=== PATIENT | female | born 1990 | race Caucasian/White ===

== ENCOUNTER 2022-01-14 10:38 | Emergency (ER) | payer OTHER, BC, SELFPAY ==
[2022-01-14 10:57] VITALS: BP 108/86; PULSE 81; RESP 20; TEMP 36.8; O2SAT 96; BMI 41.0
--- NOTE | 2022-01-14 11:20 | ED.BACK ---
HPI - Back Pain/Injury General Chief Complaint: Back Injury/Pain Stated Complaint: severe back pain Time Seen by Provider: 01/14/22 11:04 History of Present Illness HPI Narrative: Hermelinda is a 31yo female patient who presents to the emergency department via POV with complaints of low back pain, severe in nature, that has improved at time of arrival. The patient reports 2-3 previous days of nausea, vomiting, and diarrhea. She states 1 day prior to presentation while walking in a store she developed severe low back pain. She denies previous similar symptoms. She states she took no medication and sought no evaluation 1 day prior to presentation. She states the morning of presentation, the pain was worse, and she took Tylenol and Gas-X prior to arrival. She reports her pain has now nearly resolved. She denies fever, chills, or sweats. She denies burning with urination, frequency, or hematuria. She denies dark tarry stool or blood in her stool. She has no history of injury or trauma. She denies numbness, tingling, or weakness. See nursing notes for additional details. Related Data Home Medications Medication Instructions Recorded Confirmed epinephrine 0.3 mg/0.3 mL 01/14/22 injection, auto-injector sertraline 25 mg tablet mg 01/14/22 Allergies Allergy/AdvReac Type Severity Reaction Status Date / Time adhesive tape Allergy Verified 01/14/22 10:56 venom-honey bee Allergy Verified 01/14/22 10:56 Review of Systems Const: Denies: fever, chills, fatigue or malaise Cardio: Denies: chest pain or shortness of breath with exertion Resp: Denies: shortness of breath or cough GI: Reports: nausea and diarrhea; Denies: abdominal pain, vomiting or constipation : Denies: painful urination, urinary frequency, urinary urgency or blood in urine Musculo: Reports: back pain; Denies: limited range of motion, muscle cramps or muscle weakness Integ/Breast: Denies: rash Neuro: Denies: headache, numbness in extremities, weakness in extremities or lack of coordination Endo: Denies: fatigue PFSH PFSH Social History Smoking Status: Never smoker Do you use any of these nicotine containing products: None Second hand tobacco smoke exposure: No How often do you have a drink containing alcohol: monthly or less How many standard drinks containing alcohol do you have on a typical day: 1 or 2 How often do you have six or more drinks on one occasion: Never AUDIT-C Alcohol total score: 1 Non-prescribed substance use: denies use service: No Exam Const: Vital Signs, click to edit/add: Vital Signs - 24 hr 01/14/22 10:57 01/14/22 11:30 01/14/22 13:39 Temperature 98.3 F 97.5 F L Pulse Rate [Pulse Oximeter] 81 55 L Respiratory Rate 20 18 18 Blood Pressure [Le ft Forearm] 108/86 114/79 113/81 Pulse Oximetry 96 96 98 Documenting provider has reviewed patient's vital signs: yes Common normals: no apparent distress, oriented x3, no limitations, healthy appearing, alert and well nourished General appearance: cooperative, comfortable, well kempt and well developed Nutritional appearance: overweight Orientation/consciousness: Yes awake, Yes oriented to person, Yes oriented to place and Yes oriented to time HENMT: Common normals: normocephalic and head/scalp atraumatic Head and scalp: normocephalic and atraumatic Neck & C-Spine: Common normals: full ROM and supple Chest: Common normals: inspection of chest normal Resp: Common normals: normal respiratory effort, no retractions, no use of accessory muscles and clear to auscultation bilaterally Effort & inspection: able to speak in complete sentences Auscultation: clear to auscultation bilaterally Cardio: Common normals: regular rate, regular rhythm, S1 normal heart sound and S2 normal heart sound Rate: regular rate Rhythm: regular rhythm Heart sounds: S1 normal and S2 normal GI: Common normals: Normal to inspection, nondistended, normoactive bowel sounds present, soft to palpation and non-tender Palpation: soft : Common normals: no CVA tenderness Bladder/kidney exam: no CVA tenderness Back & Pelvis: Common normals: no CVA tenderness, thoracic and lumbar spine normal to inspection and straight leg raise negative bilaterally Extremity: Common normals: normal to inspection, full ROM, no clubbing, cyanosis or edema and no pedal edema Neuro: Common normals: oriented x3, CN's II-XII intact bilaterally, moves all extremities, no focal motor deficits and no sensory deficits noted Sensorium/orientation: awake, alert, oriented to person, oriented to place and oriented to time Gait (neuro): normal gait Motor exam: strength 5/5 throughout, no pronator drift and no tremor noted Psych: Common normals: mental status grossly normal, thought process normal, cooperative, affect normal, speech normal and activity/motor behavior normal Appearance: well kempt Attitude: calm Activity/motor behavior: appropriate eye contact Speech: normal speech Thought process: normal thought process Thought content: normal thought content Insight: insight good Judgement: judgment good Skin: Common normals: no rashes or lesions noted General skin exam: no rashes or lesions noted Course Course Hospital Course: Hermelinda has arrived to the ED for complaints of back pain that has resolved prior to arrival. Discussed lab studies to evaluate possible etiologies of back pain. However, without trauma or injury, and less than 48hrs of pain, at this time, no imaging necessary. The patient is agreeable and labs were reviewed. She is given anticipatory guidance on conservative management of back pain and advised to return for new or worsening symptoms. Reevaluation(s) Reevaluation #1: Hermelinda remains pain free. She has had some continued nausea, and she is agreeable for treatment for her nausea. Time: 12:27 Reevaluation #2: Discussed additional lab results with patient. Mild hematuria noted, plan for CT to evaluate for stone as etiology of discomfort. Patient now reports resolution of nausea, and she remains painfree. Time: 13:12 Vital Signs Vital signs: Initial Vital Signs Temperature 98.3 F 01/14/22 10:57 Temperature Source Temporal Artery Scan 01/14/22 10:57 Pulse Rate 81 01/14/22 10:57 Pulse Rhythm 01/14/22 10:57 Respiratory Rate 20 01/14/22 10:57 Blood Pressure 108/86 01/14/22 10:57 Blood Pressure Mean 93 01/14/22 10:57 Pulse Oximetry 96 01/14/22 10:57 Oxygen Delivery Method 01/14/22 10:57 Vital Signs Temperature 98.3 F 01/14/22 10:57 Pulse Rate 81 01/14/22 10:57 Respiratory Rate 20 01/14/22 10:57 Blood Pressure 108/86 01/14/22 10:57 Pulse Oximetry 96 01/14/22 10:57 Temperature 97.5 F L 01/14/22 13:39 Pulse Rate 55 L 01/14/22 13:39 Respiratory Rate 18 01/14/22 13:39 Blood Pressure 113/81 01/14/22 13:39 Pulse Oximetry 98 01/14/22 13:39 MDM - Back Pain/Injury Differential Diagnosis Differential diagnosis: Likely lumbar radiculopathy, strain of lumbar region, renal colic and pyelonephritis Medical Records Attestation: I reviewed the patient's medical records. Lab Data Attestation: I reviewed the patient's lab results. Labs: Lab Results 01/14/22 01/14/22 01/14/22 Range/Units 11:35 12:00 12:10 WBC 11.76 H (4.50-11.00) K/uL RBC 4.90 (4.00-5.20) m/uL Hgb 14.1 (12.0-16.0) gm/dL Hct 43.3 (33.0-51.0) % MCV 88 (80-100) fL MCH 29 (26-34) pg MCHC 33 (32-36) gm/dL RDW Coeff of Malcolm 12.5 (11.5-15.5) % Plt Count 337 (140-440) K/uL Neut % (Auto) 79.6 H (42.0-72.0) % Lymph % (Auto) 13.8 L (20-44) % [place] % (Auto) 5.3 (0.0-11.0) % Eos % (Auto) 0.9 (0.0-7.0) % Baso % (Auto) 0.3 (0.0-3.0) % Neut # (Auto) 9.40 H (1.7-7.0) K/uL Lymph # (Auto) 1.60 (0.90-2.90) K/uL [place] # (Auto) 0.60 (0.00-0.90) K/UL Eos # (Auto) 0.10 (0.00-0.50) K/uL Baso # (Auto) 0.00 (0.00-0.30) K/uL Abs Immat Gran (auto) 0.01 (0.00-0.30) K/uL Sodium (135-149) mmol/L Potassium (3.6-5.1) mmol/L Chloride (96-114) mmol/L Carbon Dioxide (20-32) mmol/L BUN (5-24) mg/dL Creatinine (0.5-1.5) mg/dL Estimated Creat Clear Estimated GFR ml/min Glucose (60-115) mg/dL Calcium (8.4-10.6) mg/dL C-Reactive Protein (0.5-1.0) mg/dL Urine Color Yellow (Yellow) Urine Appearance Clear (Clear) Urine pH 6.0 (5.0-8.5) Ur Specific [place] 1.010 (1.000-1.030) Urine Protein Negative (Negative) Urine Glucose (UA) Negative (Negative) Urine Ketones Negative (Negative) Urine Blood Negative (Negative) Urine Nitrite Negative (Negative) Urine Bilirubin Negative (Negative) Urine Urobilinogen 0.2 (0.2-1.0) Ur Leukocyte Esterase Negative (Negative) Urine RBC 2-5 A (0-2) Urine WBC 2-5 (0-5) Ur Squamous Epith Cells Few (None-Few) Amorphous Sediment Few A (None) Other Sediment (None) Urine Bacteria Few A (None) Urine Mucus (None) SARS-CoV-2 (PCR) Negative SARS-CoV-2 (Negative) 01/14/22 Range/Units 12:10 WBC (4.50-11.00) K/uL RBC (4.00-5.20) m/uL Hgb (12.0-16.0) gm/dL Hct (33.0-51.0) % MCV (80-100) fL MCH (26-34) pg MCHC (32-36) gm/dL RDW Coeff of Malcolm (11.5-15.5) % Plt Count (140-440) K/uL Neut % (Auto) (42.0-72.0) % Lymph % (Auto) (20-44) % [place] % (Auto) (0.0-11.0) % Eos % (Auto) (0.0-7.0) % Baso % (Auto) (0.0-3.0) % Neut # (Auto) (1.7-7.0) K/uL Lymph # (Auto) (0.90-2.90) K/uL [place] # (Auto) (0.00-0.90) K/UL Eos # (Auto) (0.00-0.50) K/uL Baso # (Auto) (0.00-0.30) K/uL Abs Immat Gran (auto) (0.00-0.30) K/uL Sodium 139 (135-149) mmol/L Potassium 4.2 (3.6-5.1) mmol/L Chloride 105 (96-114) mmol/L Carbon Dioxide 26 (20-32) mmol/L BUN 13 (5-24) mg/dL Creatinine 0.7 (0.5-1.5) mg/dL Estimated Creat Clear 82.11 Estimated GFR 117 ml/min Glucose 101 (60-115) mg/dL Calcium 9.2 (8.4-10.6) mg/dL C-Reactive Protein 0.9 (0.5-1.0) mg/dL Urine Color (Yellow) Urine Appearance (Clear) Urine pH (5.0-8.5) Ur Specific [place] (1.000-1.030) Urine Protein (Negative) Urine Glucose (UA) (Negative) Urine Ketones (Negative) Urine Blood (Negative) Urine Nitrite (Negative) Urine Bilirubin (Negative) Urine Urobilinogen (0.2-1.0) Ur Leukocyte Esterase (Negative) Urine RBC (0-2) Urine WBC (0-5) Ur Squamous Epith Cells (None-Few) Amorphous Sediment (None) Other Sediment (None) Urine Bacteria (None) Urine Mucus (None) SARS-CoV-2 (PCR) (Negative) Discharge Plan Discharge Clinical Impression: Gastroenteritis, Acute lumbar back pain Patient Disposition: Home, Self-Care Condition: Improved Instructions: Gastroenteritis (ED), Acute Low Back Pain (ED) Additional Instructions: Thank you for choosing [facility] for your care today. Your care today was on an emergency basis and is not intended to be a substitute for on-going care with your primary physician. I recommend calling primary care for follow-up in the next 3-5 days for follow-up as needed and to review any labs, testing, or imaging you have had in the Emergency Department. If new or worsening symptoms develop or you have any concerns in the meantime, please call your primary care clinic or return to the ER for re-evaluation. Activity Level: No Restrictions and Activity as Tolerated Discharge Diet: Regular Prescriptions: No Action sertraline 25 mg tablet 0RF epinephrine 0.3 mg/0.3 mL auto-injector 0RF Follow Up/Referrals: Runzheimer,Nela K, MD [Primary Care Provider] - Stand Alone Forms: [employer] Info Instructions
[2022-01-14 11:30] VITALS: BP 114/79; RESP 18; O2SAT 96
[2022-01-14 12:08] LABS: Appearance Urine Clear (Clear); Bilirubin Urine Negative (Negative); Blood Urine Negative (Negative); Color Urine Yellow (Yellow); Glucose Urine Negative (Negative); Ketones Urine Negative (Negative); Leukocyte Esterase Urine Negative (Negative); Nitrite Urine Negative (Negative); Protein Urine Negative (Negative); Urobilinogen Urine 0.2 (0.2-1.0)
[2022-01-14 12:15] LABS: Basophils Percent Auto 0.3 % (0.0-3.0); Eosinophils Percent Auto 0.9 % (0.0-7.0); Hematocrit 43.3 % (33.0-51.0); Hemoglobin* 14.1 gm/dL (12.0-16.0); Immature Granulocytes Abs Auto 0.01 K/uL (0.00-0.30); Lymphocytes Percent Auto 13.8 % (20-44); Mean Corpuscular HGB Conc 33 gm/dL (32-36); Mean Corpuscular Hemoglobin 29 pg (26-34); Mean Corpuscular Volume 88 fL (80-100); Monocytes Percent Auto 5.3 % (0.0-11.0); Neutrophils Percent Auto 79.6 % (42.0-72.0); Platelet Count* 337 K/uL (140-440); RDW Coefficient of Variation % 12.5 % (11.5-15.5); White Blood Count* 11.76 K/uL (4.50-11.00)
[2022-01-14 12:16] LABS: Slide Review Reflex No
[2022-01-14 12:21] LABS: SARS PCR* Negative SARS-CoV-2 (Negative)
[2022-01-14] MEDS: ONDANSETRON ODT 4 MG TAB PO (12:21)
[2022-01-14 12:28] LABS: Chloride* 105 mmol/L (96-114); Potassium* 4.2 mmol/L (3.6-5.1); Sodium* 139 mmol/L (135-149)
[2022-01-14 12:31] LABS: Creatinine* 0.7 mg/dL (0.5-1.5); Est. Creatinine Clearance* 82.11; Estimated Glomerular Filt Rate 117 ml/min
[2022-01-14 12:32] LABS: Blood Urea Nitrogen* 13 mg/dL (5-24); Calcium* 9.2 mg/dL (8.4-10.6); Carbon Dioxide* 26 mmol/L (20-32); Glucose* 101 mg/dL (60-115)
[2022-01-14 12:35] LABS: C Reactive Protein* 0.9 mg/dL (0.5-1.0)
[2022-01-14 12:43] LABS: Amorphous Sediment Urine Few; Bacteria Urine Few; Squamous Epithelial Cell Urine Few (None-Few)
--- NOTE | 2022-01-14 13:11 | CRLHL7_ITS ---
For Patients: As a result of the Century Cures Act, medical imaging exams and procedure reports are released immediately into your electronic medical record. You may view this report before your referring provider. If you have questions, please contact your health care provider. INDICATION: Hematuria TECHNIQUE: CT abdomen and pelvis without contrast, stone protocol. COMPARISON: None. FINDINGS: Kidney/ureters: Kidneys are normal in caliber. No kidney or ureteral stones and no hydronephrosis. No sign of perinephric inflammation. Ureters are normal in caliber. Liver/gallbladder/bile ducts: The liver is normal in size, shape and attenuation. The gallbladder is surgically absent. No biliary dilatation. Spleen/pancreas/adrenal glands: The spleen, adrenal glands and pancreas are within normal limits. GI tract: The bowel is unremarkable. Normal appendix. Abdominal wall/omentum/peritoneum: No free air or significant free fluid. No mass or inflammation. Lymph nodes: No lymphadenopathy. Pelvis: Unremarkable pelvis. Lower chest: Unremarkable. Bones no acute fracture or gross osseous lesion. IMPRESSION: No evidence of nephrolithiasis or hydronephrosis. No identifiable cause for patient`s reported hematuria on this noncontrast CT. Please note that all CT scans at this facility use dose modulation, iterative reconstruction, and/or weight-based dosing when appropriate to reduce radiation dose to as low as reasonably achievable. Dictated by Atul Ngo MD @ 01/14/2022 2:36:00 PM (Electronically Signed)
[2022-01-14 13:39] VITALS: BP 113/81; PULSE 55; RESP 18; TEMP 36.4; O2SAT 98
--- NOTE | 2022-01-18 11:04 | ED.NURSE ---
pt requesting a work note
== END 2022-01-14 15:00 | disposition home or self-care (01) ==
PROVIDERS: Emergency Provider Family Medicine; PCP Family Medicine
DX: M54.50 Low back pain, unspecified (principal); K52.9 Noninfective gastroenteritis and colitis, unspecified
CPT/HCPCS: 36415; 74176; 80048; 81001; 85025; 86140; 87086; 87635; 99284; A9270

== ENCOUNTER 2022-03-30 08:57 | Day surgery (SDC) | payer OTHER, BC, SELFPAY ==
[2022-03-30] VITALS (20 sets, daily range): BP systolic 103–123; BP diastolic 59–100; PULSE 74–111; RESP 12–16; TEMP 36.2–37.3; O2SAT 95–99; BMI 37.3
[2022-03-30] MEDS: SODIUM CHLORIDE 0.9 % (FLUSH) 10 ML SYRINGE IVF (09:40)
[2022-03-30] MEDS: ETHYL CHLORIDE 1 APPLICATION 1 APPLIC TOPICAL (09:40)
[2022-03-30] MEDS: LACTATED RINGERS 1000 ML 1,000 ML 100 ML IV ×3 (09:40→13:18)
[2022-03-30] MEDS: LACTATED RINGERS 1000 ML 1,000 ML 125 ML IV ×2 (10:30→19:23)
--- NOTE | 2022-03-30 10:36 | PM.PROC ---
Procedure Note Time Seen by Provider: 10:36 Date Seen: 03/30/22 Date of procedure: 03/30/[address] [facility] bill your pro fee for this procedure?: Yes Procedure: Preoperative diagnosis: 32-year-old 3 para 3 with menorrhagia who desires definitive treatment. Postoperative diagnosis: Same Procedure: Total laparoscopic hysterectomy, lysis of adhesions, diagnostic cystoscopy. Anesthesia: General endotracheal, local Surgeon: Jasmin Dale MD Assist: Lucia Gregory MD Estimated blood loss: [] mL. IV Fluid: [] mL Urine output: [] mL Drains: Hathaway to gravity Specimen: Uterus w/ cervix to pathology. Findings: On exam under anesthesia: The uterus was anteverted, approximately 8 week size, mobile without nodularity or masses palpable. Adnexa without mass or fullness palpable. On laparoscopy: bilateral fallopian tubes are absent consistent with previous bilateral salpingectomy. Gallbladder absent consistent with previous cholecystectomy. Appendix and liver appeared normal. There was omental adhesions to the left lower pelvic abdominal wall consistent with where a previous incision had been for her laparoscopic bilateral salpingectomy. Multiple adhesions of the bladder to the anterior wall of the uterus that required 25 minutes of additional time to lyse adhesions. Procedure: Hermelinda was taken to the operating room where general anesthetic was found to be adequate. She was placed in the dorsal lithotomy position and an exam under anesthesia was performed with findings stated above. She was then prepped and draped in a normal sterile manner. A Hathaway catheter was placed. A bivalve speculum was placed in the vaginal canal. A long Allis clamp was placed on the anterior lip of the cervix, in the uterus sounded to 8 cm. A large VCare uterine manipulator was then placed. The Allis clamp and speculum were removed from the cervix. Attention was then turned to performing the laparoscopic portion of the procedure. All incisions were infiltrated with 0.25% Marcaine prior to incising the skin. A vertical, infraumbilical 1 cm incision was made. An 11 mm trocar was then placed under direct visualization. The abdomen was then insufflated with CO2 gas to a pressure of 15 mm of mercury. Two,, pelvic ports were then placed approximately 3-4 finger breaths medial to the ischial crests. The trocar in the RLQ = 5mm, LLQ= 11mm. These were placed under direct visualization. Attention was then turned to performing the hysterectomy. Both ureters were visualized in the normal position bilaterally. The left lower quadrant adhesions were taken down with the power seal dissecting forceps. The right side of the hysterectomy was performed using the PowerSeal dissecting forceps. The 1st pedicles were starting with the broad ligament that was cauterized and and bisected. In sequence the pedicles were formed to divide the utero-ovarian ligament. Then sequential pedicles were made through the broad ligament. The posterior leaf of the broad ligament was then divided and sequential pedicles carried down to the level of the VCare cup. The anterior leaf of the broad ligament was then divided down to the level of the anterior aspect of the VCare cup and a bladder flap created. The uterine vessels were then skeletonized. The uterine vessels were then cauterized and divided. Then excess tissue was cleared over the top of the VCare cup using the dissecting forceps. The left side of the hysterectomy were then performed in a similar manner. However, the level of the VCare cup there were multiple adhesions of the bladder to the left lower uterine segment that were carefully lysed before the tissue around the cup was skeletonized. There were also some thin adhesions of the left lateral uterus to the left pelvic sidewall that were taken down while doing the left side of the hysterectomy. The Ligasure Valleylab pen with the spatula attachment was then used to perform the colpotomy incising around the VCare cup. The uterus was removed and the fundus placed in the vaginal canal to maintain insufflation. The vaginal cuff was then reapproximated using 2-0 V lock suture in a running manner. All the pedicles and vaginal cuff were then closely visualized and hemostasis obtained with bipolar cautery using the PowerSeal dissecting forceps or the Valleylab pen with the spatula. The the uterus was removed from the vaginal canal and sent to pathology. The Hathaway catheter was briefly removed. A diagnostic cystoscopy was performed using normal saline as the insufflation medium. The dome of the bladder was noted to be without injury and no evidence of any sutures from the vaginal cuff causing injury. Normal urine flow was noted through both ureteral orifices. Fluorescein IV was used to visualize the urine more easily. The Hathaway catheter was then replaced. Attention was then returned to the abdomen where hemostasis was verified. Deneen was applied to the vaginal cuff. The CO2 pressure decreased to 8mmHG and hemostasis verified. The fascia in the LLQ incision was approximated with 0-Vicryl suture using the Brenton Thomasen fascial closure device. This was closed under direct visualization with the laparoscope. The fascia in the umbilical incision was reapproximated using 0 Vicryl on a UR 6 needle. All trocars were removed under direct visualization. CO2 gas was allowed to escape the infraumbilical port prior to its removal. All skin incisions were re-approximated using 4-0 Monocryl in a running subcuticular manner, Exofin skin adhesive gel and adhesive bandages placed. The patient tolerated this procedure well. Sponge, lap and instrument counts were correct x2 at the end of the procedure and the patient was taken to the recovery area in stable condition. The patient received 2gm IV ancef prior to the start of the procedure. 30mg IV Toradol given prior to waking the patient from anesthesia. Surgeon: Jasmin Dale MD
[2022-03-30] MEDS: CEFAZOLIN 2 GM INJ IVP (11:00)
--- NOTE | 2022-03-30 11:11 | W.PM.NB ---
Nerve Block Nerve Block Time Seen by Provider: 11:12 Date Seen: 03/30/22 Type of block requested by surgeon for post-operative analgesia: TAP Side: bilateral Time out performed: Yes Verification of patient name: Yes Verification of date of : Yes Site marking: site marked Name of person performing procedure: Moreno Continuous monitoring Was continuous monitoring of O2 sat, B/P, nurse monitoring, recorded every 15 minutes?: Yes Procedure Checklist: sterile prep, needles and gloves Ultrasound guided. Images saved: Yes Medications given in 5ml increments after negative aspiration: Marcaine %: 0.25 mL: 30 Needle gauge: 20 and Exparel mL: 10 Patient tolerated procedure well: Yes Additional comments: Needle noted adjacent to nerve Block Charges Block Charge (with Pro Fee): TAP Bilateral Use of Ultrasound Machine for Block: Yes- US Guidance/pain block
[2022-03-30] MEDS: BUPIVACAINE 0.5% 30 ML INJECTION (12:06)
[2022-03-30] MEDS: KETOROLAC 15 MG/ML inj IVP (13:00)
--- NOTE | 2022-03-30 13:51 | W.ANESCHARGE ---
Anesthesia Charges Start Date/Time Anesthesia Start Date: 03/30/22 Anesthesia Start Time: 11:50 Stop Date/Time Anesthesia Stop Date: 03/30/22 Anesthesia Stop Time: 13:45 Summary Emergency: No
--- NOTE | 2022-03-30 13:53 | P.GYNPRC_ITS ---
Procedure Note Date Seen: 03/30/22 Procedure Details: PREOPERATIVE DIAGNOSIS: 32-year-old 3 para 3 with menorrhagia who desires definitive treatment. POSTOPERATIVE DIAGNOSIS:? Same PROCEDURE:? Total laparoscopic hysterectomy, lysis of adhesions, diagnostic cystoscopy. ANESTHESIA:? General endotracheal, local SURGEON:? Jasmin Dale MD PERSONAL HEALTH COACH:? Lucia Gregory MD ESTIMATED BLOOD LOSS:? 150 mL. DRAINS: Hathaway to gravity SPECIMEN:? Uterus w/ cervix to pathology. FINDINGS:? On exam under anesthesia:? The uterus was anteverted, approximately 8 week size, mobile without nodularity or masses palpable.? Adnexa without mass or fullness palpable.? On laparoscopy:? bilateral fallopian tubes are absent? consistent with previous bilateral salpingectomy. Gallbladder absent consistent with previous cholecystectomy. Appendix and liver appeared normal.? There was omental adhesions to the left lower pelvic abdominal wall consistent with where a previous incision had been for her laparoscopic bilateral salpingectomy.? Multiple adhesions of the bladder to the anterior wall of the uterus that required 25 minutes of additional time to lyse adhesions. PROCEDURE NOTE: Please see the operative report by Dr. Dale for full details of the procedure. I was asked to assist. I was scrubbed in for the entire procedure until closure of the abdominal incisions. I provided assistance with laparoscopic port placement, lysis of adhesions, visualization and retraction, and with the hysterectomy from the right side, as well as with hemostasis and closure of the vaginal cuff.
--- NOTE | 2022-03-30 13:55 | W.ANESCHARGE ---
Anesthesia Charges Start Date/Time Anesthesia Start Date: 03/30/22 Anesthesia Start Time: 11:50 Stop Date/Time Anesthesia Stop Date: 03/30/22 Anesthesia Stop Time: 13:45 Summary Emergency: No
[2022-03-30] MEDS: fentaNYL 100 MCG/2 ML inj 50 MCG IVP (14:18)
[2022-03-30] MEDS: HYDROmorphone 0.5 mg/0.5 ml inj IVP ×2 (14:57→16:59)
[2022-03-30] MEDS: ACETAMINOPHEN 500 MG TABLET 1000 MG PO (16:49)
[2022-03-30] MEDS: OXYCODONE 5 MG TABLET PO (16:50)
[2022-03-30] MEDS: KETOROLAC 30 MG/ML inj IVP (19:11)
[2022-03-30] MEDS: SIMETHICONE 80 MG TAB.CHEW 160 MG PO (20:46)
[2022-03-31 01:09] VITALS: BP 98/62; PULSE 94; RESP 16; TEMP 36.9; O2SAT 97
[2022-03-31] MEDS: SIMETHICONE 80 MG TAB.CHEW 160 MG PO ×3 (01:15→15:05)
[2022-03-31] MEDS: KETOROLAC 30 MG/ML inj IVP (01:17)
[2022-03-31 05:24] LABS: Hemoglobin* 12.1 gm/dL (12.0-16.0)
[2022-03-31 05:39] VITALS: BP 95/62; PULSE 90; RESP 16; TEMP 37.2; O2SAT 96
[2022-03-31] MEDS: IBUPROFEN 600 MG TABLET PO ×2 (05:44→12:55)
[2022-03-31 07:15] VITALS: BP 112/77; PULSE 87; RESP 18; O2SAT 97
[2022-03-31] MEDS: ACETAMINOPHEN 500 MG TABLET 1000 MG PO ×2 (09:01→16:18)
[2022-03-31] MEDS: hydrOXYzine pamoate 25 MG CAPSULE PO (09:01)
[2022-03-31] MEDS: OXYCODONE 5 MG TABLET PO ×2 (09:02→16:18)
--- NOTE | 2022-03-31 10:39 | P.GYNPN_ITS ---
APARTMENT LEASING AGENT - A/P Assessment and plan (1) S/P laparoscopic hysterectomy: Problem details: SAMMY, diagnostic cystoscopy. Status: Acute Plan Will reassess for discharge later today. Postoperative Procedures: Procedures Operation Date: 03/30/22 10:35 Actual Procedure Side Surgeon p Total Lap Hysterectomy, Dx Cystoscopy Jasmin Dale MD Postoperative day: 1 Postoperative status: marginal pain control Postoperative plan: routine post-op care Time Spent With Patient Time: Total time spent is greater than 50% in coordination of care (as documented) at patient's floor/unit and/or counseling patient: Time with patient: less than 15 minutes APARTMENT LEASING AGENT- PN:Subj Post-Op Subjective Date Seen: 03/31/22 Post Operative Details: Post-operative day number 1: status post total laparoscopic hysterectomy with lysis of adhesions and diagnostic cystoscopy for definitive management of menorrhagia. Subjective: pain not well controlled (Mostly complains of shoulder strep pain and upper abdominal discomfort) and patient is tolerating oral intake APARTMENT LEASING AGENT-PN: Obj Exam Physical Exam: Vital signs: Temp Pulse Resp BP Pulse Ox O2 Del Method 98.9 F 87 18 112/77 97 03/31/22 05:39 03/31/22 07:15 03/31/22 07:15 03/31/22 07:15 03/31/22 07:15 03/31/22 07:15 Constitutional: Constitutional: mild distress and cooperative Routine Respiratory Exam: Respiratory: Present CTA bilaterally Routine Cardiovascular Exam: Cardiovascular: Present RRR Routine Abdominal Exam: Abdominal: Present normal bowel sounds Comments: Laparoscopic incisions clean, dry, intact, with some mild ecchymoses surrounding them. Routine Extremities Exam: Extremities: Present normal inspection; Absent pedal edema Routine Neurological Exam: Neurological: Present alert and oriented X3 Routine Psychiatric Exam: Psychiatric: Present normal affect Urinary Catheter Management: Urethral: Cath placed during this visit: no APARTMENT LEASING AGENT - PN: Obj Data Labs Labs: Laboratory Results - last 24 hr 03/30/22 03/31/22 09:49 05:05 Hgb 12.1 Blood Type O Negative Antibody Screen NEGATIVE
[2022-03-31] MEDS: DOCUSATE SODIUM 100 MG CAPSULE PO (12:58)
[2022-03-31] MEDS: CYCLOBENZAPRINE HCL 10 MG TABLET PO (14:09)
== END 2022-03-31 17:16 | disposition home or self-care (01) ==
LOC: OR 08:58 → MEDSURG 09:03 → OB 11:22
PROVIDERS: PCP Family Medicine; Visit Provider Obstetrics & Gynecology
PROC: 0UT94ZZ Resection of Uterus, Percutaneous Endoscopic Approach (ICD-10-PCS; CPT 58550; principal; 2022-03-30 10:15)
DX: N92.0 Excessive and frequent menstruation with regular cycle (principal); N73.6 Female pelvic peritoneal adhesions (postinfective)
CPT/HCPCS: 58550; 49329; 00840; 00860; 36415; 64488; 76942; 85018; 86850; 86900; 86901; 88307; A9270; C9290; J0330; J0690; J1100; J1170; J1885; J2250; J2405; J2704; J3010; J3490; J7120

== ENCOUNTER 2022-08-26 12:13 | Emergency (ER) | payer OTHER, BC, SELFPAY ==
--- NOTE | 2022-08-26 | CRLHL7_ITS ---
For Patients: As a result of the Century Cures Act, medical imaging exams and procedure reports are released immediately into your electronic medical record. You may view this report before your referring provider. If you have questions, please contact your health care provider. Indication: CRUSH INJURY TO TOP OF LT FOOT AND TOES Technique: Left foot 2 views. Comparison: None Findings: Bones: Alignment is normal. No fractures or bone lesions. Joint spaces: Unremarkable. Soft tissues: Unremarkable. Impression: No sign of acute injury. Dictated by Kali Wills MD @ 08/26/2022 1:14:22 PM (Electronically Signed)
--- NOTE | 2022-08-26 12:26 | ED.GENADULT ---
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 who comes to the emergency room via wheelchair after the end of a bed thread grinder tool fell onto her left foot. Patient states that she was trying to move this and did not realize that it was unhooked and fell. Since that time she has had significant pain and shows me to be this 2nd toe on her left foot that hurts the most. She denies any ankle or other foot pain. She has not taken anything for the pain at this point. Movement or touch definitely increases her pain. Related Data Home Medications Medication Instructions Recorded Confirmed epinephrine 0.3 mg/0.3 mL 0.3 mg IM PRN 01/14/22 05/11/22 injection, auto-injector sertraline 25 mg tablet 25 mg PO Q24H 01/14/22 05/11/22 amitriptyline .ROUTE 08/26/22 Previous Rx's Medication Instructions Recorded ibuprofen 600 mg tablet 600 mg PO Q6H #30 tabs 03/30/22 cyclobenzaprine 10 mg tablet 10 mg PO TID PRN muscle spasm #20 03/31/22 tabs Allergies Allergy/AdvReac Type Severity Reaction Status Date / Time adhesive tape Allergy Intermediate Hives Verified 05/11/22 11:13 latex Allergy Intermediate Hives Verified 05/11/22 11:13 silicone Allergy Mild Rash Verified 05/11/22 11:13 venom-honey bee Allergy Mild Hives Verified 05/11/22 11:13 [facility] Medical History 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) Anxiety and depression Choledocholithiasis Familial cavernous cerebral angioma Impacted gallstone of gallbladder Menorrhagia Obsessive-compulsive disorder (09/02/06) PCO (polycystic ovaries) Seizure Surgical History H/O lateral meniscus repair of right knee (~2004) H/O wisdom tooth extraction (~2007) History of repair of anterior cruciate ligament of right knee (~2009) History of salpingectomy (05/06/20) Hx laparoscopic cholecystectomy (11/26/19) Previous section S/P laparoscopic hysterectomy (03/30/22) Family History Maternal Grandmother Lung cancer Aunt Diabetes Brother Cancer Social History Narrative: Cis-gender, heterosexual, woman Relationship status: . 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 Tobacco: Lifetime nonsmoker E-cigarettes: No Alcohol: Yes, 1-2 servings/week Illicit/recreational drugs: No Safety concerns at home or work: No Dietary restriction(s): No Exercise: Nothing in addition to her job Smoking Status: Never smoker Do you use any of these nicotine containing products: None Second hand tobacco smoke exposure: No How often do you have a drink containing alcohol: monthly or less How many standard drinks containing alcohol do you have on a typical day: 1 or 2 How often do you have six or more drinks on one occasion: Never AUDIT-C Alcohol total score: 1 Non-prescribed substance use: denies use Caffeine: Yes service: No Exam Narrative: Exam Narrative: Patient is alert and oriented. In discomfort but mentating normally. Examination of her lower foot shows no swelling at the ankle or the foot. There is ecchymosis starting to develop just distal to the PIP of her left 2nd toe. There does not appear to be obvious deformity. Sensation is intact. Const: Vital Signs, click to edit/add: Vital Signs - 24 hr 08/26/22 12:27 Temperature 98.5 F Pulse Rate [Pulse Oximeter] 85 Respiratory Rate 16 Blood Pressure [Le ft Upper Arm] 133/90 H Pulse Oximetry 99 Oxygen Delivery Me thod Room Air Documenting provider has reviewed patient's vital signs: yes Course Vital Signs Vital signs: Initial Vital Signs Temperature 98.5 F 08/26/22 12:27 Temperature Source Temporal Artery Scan 08/26/22 12:27 Pulse Rate 85 08/26/22 12:27 Respiratory Rate 16 08/26/22 12:27 Blood Pressure 133/90 H 08/26/22 12:27 Blood Pressure Mean 104 08/26/22 12:27 Pulse Oximetry 99 08/26/22 12:27 Oxygen Delivery Method 08/26/22 12:27 Vital Signs Temperature 98.5 F 08/26/22 12:27 Pulse Rate 85 08/26/22 12:27 Respiratory Rate 16 08/26/22 12:27 Blood Pressure 133/90 H 08/26/22 12:27 Pulse Oximetry 99 08/26/22 12:27 Oxygen Delivery Method 08/26/22 12:27 Temperature 98.5 F 08/26/22 12:27 Pulse Rate 85 08/26/22 12:27 Respiratory Rate 16 08/26/22 12:27 Blood Pressure 133/90 H 08/26/22 12:27 Pulse Oximetry 99 08/26/22 12:27 Oxygen Delivery Method 08/26/22 12:27 Medical Decision Making MDM Narrative Medical decision making narrative: 1. 2nd left toe fracture-nondisplaced and this should heal well. Patient was placed in a wooden shoe and given crutches for partial weight-bearing. Ibuprofen 600 mg given and she does state that this has helped. Recommend continuing ibuprofen or Tylenol as needed. Recommending icing and elevating at this time. Follow-up with orthopedics in the next week for recheck. 2. Disposition-patient is unsure of what she would like for work restrictions. We spoke about inability to use stairs and of an extensive walking but she can certainly walk in the wooden shoe as long as she is not experiencing a lot of pain. She could certainly set to do some of her work. She is going to talk to her boss and then communicate with me so that we can give her an appropriate release. Medical Records Medical records reviewed: Yes I reviewed the patient's medical records Imaging Data Left 2nd toe x-ray: Attestation: I have reviewed the pertinent imaging results. My impression: Nondisplaced fracture noted in the middle phalanx. Radiologist's impression: [address] [address] Diagnostic Imaging Report Patient: Hermelinda Lemus MR#: [id number] : 1990 Acct:[id number] Loc: ED Service Date: 08/26/[address]: Ordering Physician: Kamilah Rodriguez M.D. Date of Service: 08/26/22 Procedure(s): XR 2nd toe LT Accession Number(s): [id number] cc: Kamilah Rodriguez M.D.; Nela Stanley M.D.~ For Patients:? As a result of the Cures Act, medical imaging exams and procedure reports are released immediately into your electronic medical record.? You may view this report before your referring provider.? If you have questions, please contact your health care provider. Indication: CRUSH INJURY TO TOP OF LT FOOT AND TOES Technique: Two views left 2nd toe Comparison: None Findings: Nondisplaced fracture of the 2nd toe middle phalanx. Normal joint spaces. Impression: Nondisplaced fracture of the left 2nd toe middle phalanx. Foot x-ray: Attestation: I have reviewed the pertinent imaging results. My impression: No obvious fractures Radiologist's impression: No obvious fractures Discharge Plan Discharge Patient Disposition: Home, Self-Care Condition: Improved Additional Instructions: Wooden shoe or wide-based tennis shoe for comfort. Crutches for partial weight-bearing. Line ibuprofen or Tylenol as needed for discomfort Follow-up with orthopedic and fracture clinic for recheck. Phone Prescriptions: No Action sertraline 25 mg tablet 25 mg PO Q24H epinephrine 0.3 mg/0.3 mL auto-injector 0.3 mg IM PRN ibuprofen 600 mg Tablet 600 mg PO Q6H Qty: 30 0RF cyclobenzaprine 10 mg tablet 10 mg PO TID PRN (Reason: muscle spasm) Qty: 20 0RF amitriptyline .ROUTE Follow Up/Referrals: Nela Stanley MD [Primary Care Provider] - Stand Alone Forms: [employer] Info Instructions
[2022-08-26 12:27] VITALS: BP 133/90; PULSE 85; RESP 16; TEMP 36.9; O2SAT 99; BMI 39.1
--- NOTE | 2022-08-26 12:29 | CRLHL7_ITS ---
For Patients: As a result of the Cures Act, medical imaging exams and procedure reports are released immediately into your electronic medical record. You may view this report before your referring provider. If you have questions, please contact your health care provider. Indication: CRUSH INJURY TO TOP OF LT FOOT AND TOES Technique: Two views left 2nd toe Comparison: None Findings: Nondisplaced fracture of the 2nd toe middle phalanx. Normal joint spaces. Impression: Nondisplaced fracture of the left 2nd toe middle phalanx. Dictated by Kali Wills MD @ 08/26/2022 1:15:07 PM (Electronically Signed)
[2022-08-26] MEDS: IBUPROFEN 200 MG TABLET 600 MG PO (13:08)
--- NOTE | 2022-08-26 14:04 | ED.NURSE ---
Patient fitted with post-op shoe and given crutches prior to discharge.
== END 2022-08-26 14:04 | disposition home or self-care (01) ==
PROVIDERS: Emergency Provider Family Medicine; PCP Family Medicine
DX: S92.505A Nondisplaced unspecified fracture of left lesser toe(s), initial encounter for closed fracture (principal); W22.8XXA Striking against or struck by other objects, initial encounter
CPT/HCPCS: 73620; 73660; 99283; A9270

== ENCOUNTER 2023-02-13 09:11 | Emergency (ER) | payer BC, SELFPAY ==
[2023-02-13 09:27] VITALS: BP 110/84; PULSE 65; RESP 18; TEMP 36.1; O2SAT 98; BMI 40.0
--- NOTE | 2023-02-13 10:22 | ED_ITS ---
HPI - General Adult General Chief complaint: Headache/Migraine Stated complaint: covid+ tuesday home test Time Seen by Provider: 02/13/23 09:54 History of Present Illness HPI narrative: Patient is a 32-year-old female who has been in vaccinated for COVID who had a positive COVID test on Tuesday, she felt well up until Tuesday of last week and then felt sick. She complains of a headache, body aches, low-grade fever at times. She has no shortness of breath, no chest pain. She is not hypoxic, she has no fever today. Related Data Home Medications Medication Instructions Recorded Confirmed epinephrine 0.3 mg/0.3 mL 0.3 mg IM PRN 01/14/22 11/21/22 injection, auto-injector amitriptyline 10 mg tablet 10 mg PO QPM 10/26/22 11/21/22 nystatin 100,000 unit/gram topical topical 10/26/22 10/26/22 powder ([facility]) sertraline 50 mg tablet 50 mg PO DAILY 10/26/22 11/21/22 Previous Rx's Medication Instructions Recorded hydrocodone 7.5 mg-acetaminophen 1 tab PO Q8H PRN pain #10 tabs 02/13/23 325 mg tablet Allergies Allergy/AdvReac Type Severity Reaction Status Date / Time adhesive tape Allergy Intermediate Hives Verified 11/21/22 01:52 latex Allergy Intermediate Hives Verified 11/21/22 01:52 silicone Allergy Mild Rash Verified 11/21/22 01:52 venom-honey bee Allergy Mild Hives Verified 11/21/22 01:52 Review of Systems Status of ROS: Reports: 6 or more systems reviewed and unremarkable except as noted in History and below [facility] Medical History Obsessive-compulsive disorder (09/02/06) ?F42.9 - Obsessive-compulsive disorder, unspecified (ICD-10) 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) ?Z91.030 - Bee allergy status (ICD-10) Anxiety and depression ?F41.9 - Anxiety disorder, unspecified (ICD-10) ?F32.A - Depression, unspecified (ICD-10) Menorrhagia ?N92.0 - Excessive and frequent menstruation with regular cycle (ICD-10) Seizure ?R56.9 - Unspecified convulsions (ICD-10) Impacted gallstone of gallbladder ?K80.20 - Calculus of gallbladder without cholecystitis without obstruction (ICD-10) Choledocholithiasis ?K80.50 - Calculus of bile duct without cholangitis or cholecystitis without obstruction (ICD-10) Familial cavernous cerebral angioma ?D18.02 - Hemangioma of intracranial structures (ICD-10) PCO (polycystic ovaries) ?E28.2 - Polycystic ovarian syndrome (ICD-10) Surgical History S/P right knee arthroscopy (09/10/03) ?Z98.890 - Other specified postprocedural states (ICD-10) H/O wisdom tooth extraction (~2007) ?K08.409 - Partial loss of teeth, unspecified cause, unspecified class (ICD- 10) H/O lateral meniscus repair of right knee (~2004) ?Z98.890 - Other specified postprocedural states (ICD-10) S/P laparoscopic hysterectomy (03/30/22) ?Z90.710 - Acquired absence of both cervix and uterus (ICD-10) History of salpingectomy (05/06/20) ?Z90.79 - Acquired absence of other genital organ(s) (ICD-10) Hx laparoscopic cholecystectomy (11/26/19) ?Z90.49 - Acquired absence of other specified parts of digestive tract (ICD- 10) Previous section ?Z98.891 - History of uterine scar from previous surgery (ICD-10) Family History Maternal Grandmother Lung cancer Aunt Diabetes Brother Cancer Social History Narrative: Cis-gender, heterosexual, woman Relationship status: . 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 Tobacco: Lifetime nonsmoker E-cigarettes: No Alcohol: Yes, 1-2 servings/week Illicit/recreational drugs: No Safety concerns at home or work: No Dietary restriction(s): No Exercise: Nothing in addition to her job Smoking Status: Never smoker Do you use any of these nicotine containing products: None Second hand tobacco smoke exposure: No How often do you have a drink containing alcohol: monthly or less How many standard drinks containing alcohol do you have on a typical day: 1 or 2 How often do you have six or more drinks on one occasion: Never AUDIT-C Alcohol total score: 1 Non-prescribed substance use: denies use Caffeine: Yes service: No Exam Narrative: Exam Narrative: Objective: Vital signs unremarkable In general no apparent distress No facial asymmetry Throat clear Pupils aggression light Neck is supple Neurologic nonfocal Const: Vital Signs, click to edit/add: Vital Signs - 24 hr 02/13/23 09:27 Temperature 96.9 F L Pulse Rate [Right Pulse Oximeter] 65 Respiratory Rate 18 Blood Pressure [Ri ght Upper Arm] 110/84 Pulse Oximetry 98 Oxygen Delivery Me thod Room Air Course Vital Signs Vital signs: Initial Vital Signs Temperature 96.9 F L 02/13/23 09:27 Temperature Source Temporal Artery Scan 02/13/23 09:27 Pulse Rate 65 02/13/23 09:27 Respiratory Rate 18 02/13/23 09:27 Blood Pressure 110/84 02/13/23 09:27 Blood Pressure Mean 92 02/13/23 09:27 Blood Pressure Position Sitting 02/13/23 09:27 Pulse Oximetry 98 02/13/23 09:27 Oxygen Delivery Method Room Air 02/13/23 09:27 Vital Signs Temperature 96.9 F L 02/13/23 09:27 Pulse Rate 65 02/13/23 09:27 Respiratory Rate 18 02/13/23 09:27 Blood Pressure 110/84 02/13/23 09:27 Pulse Oximetry 98 02/13/23 09:27 Oxygen Delivery Method Room Air 02/13/23 09:27 Temperature 96.9 F L 02/13/23 09:27 Pulse Rate 65 02/13/23 09:27 Respiratory Rate 18 02/13/23 09:27 Blood Pressure 110/84 02/13/23 09:27 Pulse Oximetry 98 02/13/23 09:27 Oxygen Delivery Method Room Air 02/13/23 09:27 Medical Decision Making MDM Narrative Medical decision making narrative: 32-year-old female about 5 days into COVID, with body ache and headache. I think will give her some Toradol now, Vicodin for home as needed. She has no allergies to pain medication. I think she has an excellent candidate to help with headache and this should be reasonable. The Tylenol and ibuprofen she has been taking was not helping her very much. Discussed that this is likely the natural consequence a COVID and she should isolate for the next few days until she is symptom free for several days. Update her regular physician in the next couple of days if problems or concerns return to ED. Discharge Plan Discharge Clinical Impression: COVID-19 Patient Disposition: Home, Self-Care Condition: Stable Additional Instructions: Light activity, rest, fluids, [place] as needed for pain or headache. Update regular doctor next 2-3 days, return to ED sooner problems or concerns. Activity Level: Light activity Discharge Diet: Regular Prescriptions: New hydrocodone-acetaminophen 7.5-325 mg tablet 1 tab PO Q8H PRN (Reason: pain) Qty: 10 0RF No Action amitriptyline 10 mg tablet 10 mg PO QPM sertraline 50 mg tablet 50 mg PO DAILY nystatin [Nyamyc] 100,000 unit/gram powder topical epinephrine 0.3 mg/0.3 mL auto-injector 0.3 mg IM PRN Follow Up/Referrals: Nela Stanley MD [Primary Care Provider] - Stand Alone Forms: [employer] Info Instructions
[2023-02-13] MEDS: KETOROLAC 10 MG TABLET PO (10:35)
== END 2023-02-13 10:37 | disposition home or self-care (01) ==
PROVIDERS: Emergency Provider Family Medicine; PCP Family Medicine
DX: U07.1 COVID-19 (principal)
CPT/HCPCS: 99283; A9270

== ENCOUNTER 2023-04-09 19:07 | Emergency (ER) | payer BC, SELFPAY ==
[2023-04-09 19:17] VITALS: BP 124/86; PULSE 79; RESP 18; TEMP 36.6; O2SAT 99; BMI 40.4
--- NOTE | 2023-04-09 19:23 | CRLHL7_ITS ---
For Patients: As a result of the Century Cures Act, medical imaging exams and procedure reports are released immediately into your electronic medical record. You may view this report before your referring provider. If you have questions, please contact your health care provider. INDICATION: Left flank pain TECHNIQUE: CT abdomen and pelvis without contrast. COMPARISON: CT abdomen and pelvis 01/14/2022 FINDINGS: The visualized portions of the lung bases are clear. Evaluation of the abdominal viscera is limited due to lack of IV contrast, however the liver, spleen, pancreas and adrenal glands are unremarkable. The gallbladder is surgically absent The kidneys are negative for hydronephrosis or nephrolithiasis. The bladder is partially distended and unremarkable. No dilated loops of small bowel are seen to suggest obstruction. The appendix is normal. Cyst within the right aspect of the pelvis measuring 4.9 cm, likely an ovarian cyst. Negative for intraperitoneal free air or fluid. The visualized osseous structures are unremarkable. IMPRESSION: 1. Right pelvic cyst measuring 4.9 cm, likely an ovarian cyst. 2. Otherwise no acute abnormality to explain patient`s left flank pain. Negative for hydronephrosis or nephrolithiasis. Dictated by Peggy Franco MD @ 04/09/2023 8:41:15 PM Please note that all CT scans at this facility use dose modulation, iterative reconstruction, and/or weight-based dosing when appropriate to reduce radiation dose to as low as reasonably achievable. Dictated by: Peggy Franco MD @ 04/09/2023 20:41:42 (Electronically Signed)
--- NOTE | 2023-04-09 19:28 | ED_ITS ---
HPI - General Adult General Date Seen: 04/09/23 Chief complaint: Back Injury/Pain Stated complaint: back pain Time Seen by Provider: 04/09/23 19:11 Source: patient Mode of arrival: ambulatory Limitations: no limitations History of Present Illness HPI narrative: Patient is a 33-year-old female with no pertinent medical problems presenting to emergency department for left flank pain. She says the pain started suddenly today around 14:00. She says the pain is intermittent describes as more sharp in nature. Has also been causing her to get nauseated. 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 Does not think of any time that she might have hurt her back. States the pain feels deeper than the muscles. Denies abdominal pain. States she has had previous cholecystectomy and hysterectomy but has had normal bowel movements. Denies fevers, chills, chest pain, shortness of breath, weakness, numbness, diarrhea, headache, vision changes. Related Data Home Medications Medication Instructions Recorded Confirmed epinephrine 0.3 mg/0.3 mL 0.3 mg IM PRN 01/14/22 04/09/23 injection, auto-injector amitriptyline 10 mg tablet 10 mg PO QPM 10/26/22 04/09/23 sertraline 50 mg tablet 50 mg PO DAILY 10/26/22 04/09/23 Allergies Allergy/AdvReac Type Severity Reaction Status Date / Time adhesive tape Allergy Intermediate Hives Verified 11/21/22 01:52 latex Allergy Intermediate Hives Verified 11/21/22 01:52 silicone Allergy Mild Rash Verified 11/21/22 01:52 venom-honey bee Allergy Mild Hives Verified 11/21/22 01:52 Review of Systems Status of ROS: Reports: 10 or more systems reviewed and unremarkable except as noted in History and below [facility] Medical History Obsessive-compulsive disorder (09/02/06) ?F42.9 - Obsessive-compulsive disorder, unspecified (ICD-10) 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) ?Z91.030 - Bee allergy status (ICD-10) Anxiety and depression ?F41.9 - Anxiety disorder, unspecified (ICD-10) ?F32.A - Depression, unspecified (ICD-10) Menorrhagia ?N92.0 - Excessive and frequent menstruation with regular cycle (ICD-10) Seizure ?R56.9 - Unspecified convulsions (ICD-10) Impacted gallstone of gallbladder ?K80.20 - Calculus of gallbladder without cholecystitis without obstruction (ICD-10) Choledocholithiasis ?K80.50 - Calculus of bile duct without cholangitis or cholecystitis without obstruction (ICD-10) Familial cavernous cerebral angioma ?D18.02 - Hemangioma of intracranial structures (ICD-10) PCO (polycystic ovaries) ?E28.2 - Polycystic ovarian syndrome (ICD-10) Surgical History S/P right knee arthroscopy (09/10/03) ?Z98.890 - Other specified postprocedural states (ICD-10) H/O wisdom tooth extraction (~2007) ?K08.409 - Partial loss of teeth, unspecified cause, unspecified class (ICD- 10) H/O lateral meniscus repair of right knee (~2004) ?Z98.890 - Other specified postprocedural states (ICD-10) S/P laparoscopic hysterectomy (03/30/22) ?Z90.710 - Acquired absence of both cervix and uterus (ICD-10) History of salpingectomy (05/06/20) ?Z90.79 - Acquired absence of other genital organ(s) (ICD-10) Hx laparoscopic cholecystectomy (11/26/19) ?Z90.49 - Acquired absence of other specified parts of digestive tract (ICD- 10) Previous section ?Z98.891 - History of uterine scar from previous surgery (ICD-10) Family History Maternal Grandmother Lung cancer Aunt Diabetes Brother Cancer Social History Narrative: Cis-gender, heterosexual, woman Relationship status: . 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 Tobacco: Lifetime nonsmoker E-cigarettes: No Alcohol: Yes, 1-2 servings/week Illicit/recreational drugs: No Safety concerns at home or work: No Dietary restriction(s): No Exercise: Nothing in addition to her job Smoking Status: Never smoker Do you use any of these nicotine containing products: None Second hand tobacco smoke exposure: No How often do you have a drink containing alcohol: monthly or less How many standard drinks containing alcohol do you have on a typical day: 1 or 2 How often do you have six or more drinks on one occasion: Never AUDIT-C Alcohol total score: 1 Non-prescribed substance use: denies use Caffeine: Yes service: No Exam Narrative: Exam Narrative: Const: Well-nourished, Well-developed, in mild distress Eyes: PERRL, no conjunctival injection, and symmetrical lids HENT: Atraumatic external nose and ears. Moist mucous membranes. Neck: Symmetric, trachea midline, No thyromegaly. CVS: RRR, No murmurs or gallops. Peripheral pulses 2+ and equal in all extremities RESP: Unlabored respiratory effort. Clear to auscultation bilaterally. GI: Nontender/Nondistended, No rebound or guarding. MSK:Extremities w/o deformity, Normal Active ROM, no midline back tenderness, mild flank tenderness Skin: Warm, Dry. No rashes or lesions. Neuro: Normal Muscle tone, No focal neurological deficits. Psych: Awake, Alert, & Oriented x3. Appropriate mood and affect. Const: Vital Signs, click to edit/add: Vital Signs - 24 hr 04/09/23 19:17 04/09/23 19:31 Temperature 97.9 F 97.9 F Pulse Rate [Right Pulse Oximeter] 79 Respiratory Rate 18 Blood Pressure [Ri ght Upper Arm] 124/86 Pulse Oximetry 99 Oxygen Delivery Me thod Room Air Course Vital Signs Vital signs: Initial Vital Signs Temperature 97.9 F 04/09/23 19:17 Temperature Source Temporal Artery Scan 04/09/23 19:17 Pulse Rate 79 04/09/23 19:17 Respiratory Rate 18 04/09/23 19:17 Blood Pressure 124/86 04/09/23 19:17 Blood Pressure Mean 98 04/09/23 19:17 Blood Pressure Position Sitting 04/09/23 19:17 Pulse Oximetry 99 04/09/23 19:17 Oxygen Delivery Method Room Air 04/09/23 19:17 Vital Signs Temperature 97.9 F 04/09/23 19:17 Pulse Rate 79 04/09/23 19:17 Respiratory Rate 18 04/09/23 19:17 Blood Pressure 124/86 04/09/23 19:17 Pulse Oximetry 99 04/09/23 19:17 Oxygen Delivery Method Room Air 04/09/23 19:17 Temperature 97.9 F 04/09/23 19:31 Pulse Rate 79 04/09/23 19:17 Respiratory Rate 18 04/09/23 19:17 Blood Pressure 124/86 04/09/23 19:17 Pulse Oximetry 99 04/09/23 19:17 Oxygen Delivery Method Room Air 04/09/23 19:17 Medical Decision Making MDM Narrative Medical decision making narrative: Patient is 33-year-old female presenting for left flank pain. Will pain seems to be in the paraspinal region she does state the. Had no acute injuries that she is aware of. She has no history of kidney stones by am concern for nephrolithiasis at this time. Seems unlikely to be pyelonephritis considering her normal vital signs. We will order an abdominal CT to check for signs of kidney stones. CBC, BMP, urinalysis ordered. Toradol and Zofran given for pain and nausea. Patient's symptoms resolved with the medication. CBC BMP were unremarkable. CT scan shows a incidental ovarian cyst but no signs of nephrolithiasis or pyelonephritis. The patient will be discharged home. She is agreeable to this plan. Most likely is having a muscle strain. Prescribed Flexeril and Zofran through [facility] Lab Data Labs: Lab Results 04/09/23 Range/Units 19:30 WBC 10.82 (4.50-11.00) K/uL RBC 4.77 (4.00-5.20) m/uL Hgb 14.0 (12.0-16.0) gm/dL Hct 42.6 (33.0-51.0) % MCV 89 (80-100) fL MCH 29 (26-34) pg MCHC 33 (32-36) gm/dL RDW Coeff of Malcolm 12.7 (11.5-15.5) % Plt Count 287 (140-440) K/uL Neut % (Auto) 60.3 (42.0-72.0) % Lymph % (Auto) 20.6 (20-44) % [place] % (Auto) 7.7 (0.0-11.0) % Eos % (Auto) 10.5 H (0.0-7.0) % Baso % (Auto) 0.6 (0.0-3.0) % Neut # (Auto) 6.53 (1.7-7.0) K/uL Lymph # (Auto) 2.23 (0.90-2.90) K/uL [place] # (Auto) 0.80 (0.00-0.90) K/UL Eos # (Auto) 1.10 H (0.00-0.50) K/uL Baso # (Auto) 0.06 (0.00-0.30) K/uL Abs Immat Gran (auto) 0.03 (0.00-0.30) K/uL Imm/Tot Granulo (auto) 0.3 % Sodium 140 (135-149) mmol/L Potassium 3.8 (3.6-5.1) mmol/L Chloride 107 (96-114) mmol/L Carbon Dioxide 25 (20-32) mmol/L Anion Gap 8 (7-15) mEq/L BUN 10 (5-24) mg/dL Creatinine 0.6 (0.5-1.5) mg/dL Estimated Creat Clear 94.00 Estimated GFR 120 ml/min Glucose 98 (60-115) mg/dL Calcium 9.0 (8.4-10.6) mg/dL Imaging Data CT scan abdomen and pelvis: Radiologist's impression: INDICATION: Left flank pain TECHNIQUE: CT abdomen and pelvis without contrast. COMPARISON: CT abdomen and pelvis 01/14/2022 FINDINGS: The visualized portions of the lung bases are clear. Evaluation of the abdominal viscera is limited due to lack of IV contrast, however the liver, spleen, pancreas and adrenal glands are unremarkable. The gallbladder is surgically absent The kidneys are negative for hydronephrosis or nephrolithiasis. The bladder is partially distended and unremarkable. No dilated loops of small bowel are seen to suggest obstruction. The appendix is normal. Cyst within the right aspect of the pelvis measuring 4.9 cm, likely an ovarian cyst. Negative for intraperitoneal free air or fluid. The visualized osseous structures are unremarkable. IMPRESSION: 1. Right pelvic cyst measuring 4.9 cm, likely an ovarian cyst. 2. Otherwise no acute abnormality to explain patient`s left flank pain. Negative for hydronephrosis or nephrolithiasis. Dictated by Peggy Franco MD @ 04/09/2023 8:41:15 PM Please note that all CT scans at this facility use dose modulation, iterative reconstruction, and/or weight-based dosing when appropriate to reduce radiation dose to as low as reasonably achievable. Dictated by: Peggy Franco MD @ 04/09/2023 20:41:42 Discharge Plan Discharge Clinical Impression: Strain of lumbar region Qualifiers: Encounter type: initial encounter Qualified Code(s): S39.012A - Strain of muscle, fascia and tendon of lower back, initial encounter Patient Disposition: Home, Self-Care Condition: Improved Instructions: Low Back Strain (ED) Additional Instructions: There is no signs of kidney stones at this time. Your pain is most likely musculoskeletal strain. There was an incidental finding of what looks to be an ovarian cyst on the right. If you starts developing pelvic pain in the future you can follow up with the primary care provider [facility] about this. If you are not having symptoms you do not need follow-up for that the cyst. Take Tylenol ibuprofen for pain and that is not working can try the muscle relaxer. Prescriptions: No Action amitriptyline 10 mg tablet 10 mg PO QPM sertraline 50 mg tablet 50 mg PO DAILY epinephrine 0.3 mg/0.3 mL auto-injector 0.3 mg IM PRN Follow Up/Referrals: Nela Stanley MD [Primary Care Provider] - Stand Alone Forms: Map[employer] Info Instructions
[2023-04-09] MEDS: ONDANSETRON 2 MG/ML inj 4 MG IVP (19:30)
[2023-04-09 19:31] VITALS: TEMP 36.6
[2023-04-09] MEDS: KETOROLAC 15 MG/ML inj IVP (19:31)
[2023-04-09 19:37] LABS: Basophils Absolute Auto 0.06 K/uL (0.00-0.30); Basophils Percent Auto 0.6 % (0.0-3.0); Eosinophils Percent Auto 10.5 % (0.0-7.0); Hematocrit 42.6 % (33.0-51.0); Immature Granulocytes Abs Auto 0.03 K/uL (0.00-0.30); Immature Granulocytes Pct Auto 0.3 %; Lymphocytes Absolute Auto 2.23 K/uL (0.90-2.90); Lymphocytes Percent Auto 20.6 % (20-44); Mean Corpuscular HGB Conc 33 gm/dL (32-36); Mean Corpuscular Hemoglobin 29 pg (26-34); Mean Corpuscular Volume 89 fL (80-100); Monocytes Percent Auto 7.7 % (0.0-11.0); Neutrophils Absolute Auto 6.53 K/uL (1.7-7.0); Neutrophils Percent Auto 60.3 % (42.0-72.0); Platelet Count* 287 K/uL (140-440); RDW Coefficient of Variation % 12.7 % (11.5-15.5); Red Blood Count 4.77 m/uL (4.00-5.20); White Blood Count* 10.82 K/uL (4.50-11.00)
[2023-04-09 19:41] LABS: Slide Review Reflex No
[2023-04-09 19:50] LABS: Chloride* 107 mmol/L (96-114); Potassium* 3.8 mmol/L (3.6-5.1); Sodium* 140 mmol/L (135-149)
[2023-04-09 19:53] LABS: Anion Gap 8 mEq/L (7-15); Blood Urea Nitrogen* 10 mg/dL (5-24); Carbon Dioxide* 25 mmol/L (20-32); Creatinine* 0.6 mg/dL (0.5-1.5); Estimated Glomerular Filt Rate 120 ml/min
[2023-04-09 19:54] LABS: Glucose* 98 mg/dL (60-115)
[2023-04-09 21:00] VITALS: BP 118/74; PULSE 74; RESP 18; TEMP 36.8; O2SAT 99
== END 2023-04-09 20:57 | disposition home or self-care (01) ==
PROVIDERS: Emergency Provider Student in an Organized Health Care Education/Training Program; PCP Family Medicine
DX: S39.012A Strain of muscle, fascia and tendon of lower back, initial encounter (principal)
CPT/HCPCS: 36415; 74176; 80048; 81003; 85025; 96374; 96375; 99283; J1885; J2405

== ENCOUNTER 2023-12-03 22:40 | Emergency (ER) | payer BC, SELFPAY ==
[2023-12-03] VITALS (11 sets, daily range): BP systolic 133–150; BP diastolic 61–90; PULSE 87–104; RESP 18; TEMP 37.1; O2SAT 97–100; BMI 41.6
[2023-12-03 23:38] LABS: Basophils Absolute Auto 0.05 K/uL (0.00-0.30); Basophils Percent Auto 0.5 % (0.0-3.0); Eosinophils Absolute Auto 0.23 K/uL (0.00-0.50); Eosinophils Percent Auto 2.1 % (0.0-7.0); Hematocrit 41.5 % (33.0-51.0); Hemoglobin* 13.7 gm/dL (12.0-16.0); Immature Granulocytes Abs Auto 0.13 K/uL (0.00-0.30); Immature Granulocytes Pct Auto 1.2 %; Lymphocytes Absolute Auto 2.43 K/uL (0.90-2.90); Lymphocytes Percent Auto 22.3 % (20-44); Mean Corpuscular HGB Conc 33 gm/dL (32-36); Mean Corpuscular Hemoglobin 29 pg (26-34); Mean Corpuscular Volume 88 fL (80-100); Monocytes Percent Auto 6.8 % (0.0-11.0); Neutrophils Absolute Auto 7.33 K/uL (1.7-7.0); Neutrophils Percent Auto 67.1 % (42.0-72.0); Platelet Count* 320 K/uL (140-440); RDW Coefficient of Variation % 12.3 % (11.5-15.5); White Blood Count* 10.91 K/uL (4.50-11.00)
[2023-12-03 23:46] LABS: Slide Review Reflex No
[2023-12-03 23:53] LABS: Potassium* 3.7 mmol/L (3.6-5.1); Sodium* 139 mmol/L (135-149)
[2023-12-03 23:55] LABS: Alanine Aminotransferase* 26 U/L (4-35); Aspartate Amino Transferase* 26 U/L (12-35); Bilirubin Total* 0.7 mg/dL (0.1-1.5); Blood Urea Nitrogen* 11 mg/dL (5-24); Creatinine* 0.6 mg/dL (0.5-1.5); Estimated Glomerular Filt Rate 120 ml/min
[2023-12-03 23:56] LABS: Glucose* 131 mg/dL (60-115); Magnesium* 2.1 mg/dL (1.5-2.6)
--- OUTSIDE RECORDS SUMMARY | 2023-12-03 23:57 | XMS_ITS | Clinical Summary ---
Author Organization [facility] Address [place], [place] [address] Care Team Providers Care Account Services Manager Name Role Phone Nela Stanley MD Primary Care Provide r Allergies Active Allergy Reactions Criticality Noted Date Comments Adhesive Tape-Silicones Rash 11/08/2014 Bee Pollen Hives High 09/02/2006 Latex Rash,Hives High 02/02/2011 Silicone Rash Low 05/11/2022 Medications Medication Sig Dispensed Refills Start Date End Date Status EPINEPHrine (EpiPen) 0.3 mg/0.3 mL injectionIndicatio ns:Bee allergy status Inject 0.3 mg intramuscular one time if needed for Allergic Reaction. Please do not fill today. Patient will call as needed 1 Each 1 Active fluconazole (DIFLUCAN) 150 mg tabletIndications: Yeast vaginitis Take 1 Tablet (150 mg) by mouth once daily. May repeat a second dose in 1 week if symptoms persist 2 Tablet 3 Active amitriptyline (ELAVIL) 10 mg tabletIndications: Daily headache TAKE ONE TABLET BY MOUTH ONCE NIGHTLY AT BEDTIME 30 Tablet 3 Active nystatin powder (MYCOSTATIN) powderIndications: Candidal intertrigo Apply 1 Strip topically to affected area(s) three times daily. 60 g 4 Active ondansetron (ZOFRAN ODT) 4 mg disintegrating tabletIndications: Nausea Place 1 Tablet (4 mg) on the tongue every 8 hours if needed for Nausea/Vomiting. 20 Tablet 2 4 Active triamcinolone 0.5% (ARISTOCORT) 0.5 % creamIndications:R jose elias Apply topically to affected area(s) three times daily. 15 g 1 4 Active sertraline (ZOLOFT) 50 mg tabletIndications: Obsessive-compulsi ve disorder, unspecified type TAKE ONE TABLET BY MOUTH EVERY MORNING 90 Tablet 3 4 Active sertraline (ZOLOFT) 50 mg tabletIndications: Obsessive-compulsi ve disorder, unspecified type TAKE ONE TABLET BY MOUTH EVERY MORNING 90 Tablet 3 3 11/27/19 24 Discontinued Active Problems Problem Noted Date Diagnosed Date Pap smear for cervical cancer screening 05/20/20 21 Overview: 05/2021 NIL/HPV Negative. 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 Last Tdap- 01/08/2020 Last Flu vaccine- 02/29/2020 Glucose (GTT) result- Component Latest Ref Rng & Units 01/08/2020 HEMOGLOBIN 12.0 - 16.0 g/dL 12.8 MCV 80 - 100 fL 93 GLUCOSE,GESTATIONAL 65 - 139 mg/dL 111 20 week US: IMPRESSION: 1. Single living intrauterine fetus in the cephalic presentation. survey is normal. Presentation. 2. Gestational age by ultrasound is 19 weeks and 2 days. This is consistent with gestational age based on LMP. Gestational age by LMP is 19 weeks and 5 days, with estimated date of delivery 03/26/2020. Allergies Allergen Reactions ? ? Bee Pollen Hives ? ? Adhesive Tape-Silicones Rash OB History Para Term AB Living 3 2 2 0 0 2 SAB TAB Ectopic Multiple Live Births 0 0 0 0 2 # Outcome Date GA Lbr Bryan/2nd Weight Sex Delivery Anes PTL Lv 3 Current 2 Term 02/17/11 M LIVE Comments: System Generated. Please review and update details. 1 Term LIVE Create lab flowsheet for OB labs- Component Latest Ref Rng & Units 08/17/2019 08/17/2019 08/17/2019 9:39 AM 9:39 AM 9:39 AM ANTIBODY SCREEN Negative Negative SPECIMEN EXPIRATION DATE/TIME 08/20/19 23:59 HEMOGLOBIN 12.0 - 16.0 g/dL 13.5 MCV 80 - 100 fL 88 RUBELLA IGG ANTIBODY Positive 3.34 HEMOGLOBIN A1C SCREENING <=6.4 % 5.2 ABORH O Rh Negative HBSAG Nonreactive Nonreactive HEPATITIS C ANTIBODY Non-Reactive Non-Reactive HIV-1/HIV-2 ANTIBODY Non-Reactive Non-Reactive TREPONEMA PALLIDUM Negative Negative Past Medical History: . Date ? ? Encounter for supervision of other normal , first trimester 10/20/2017 ? ? Obsessive-compulsive disorders ? ? Seizure (HC) One seizure, age 13 Past Surgical History: . Laterality Date ? ? VA MENISCAL TRNSPL KNEE WITH SCOPE No data on file. Problems (from 08/17/19 to present) No problems associated with this episode. MILES Coelho.....11/19/2019 9:47 AM Gallbladder pain 11/02/2019 04/30/2020 Common bile duct dilatation 11/02/2019 04/30/2020 Choledocholithiasis 11/02/2019 11/03/19 20 19 weeks gestation of 11/02/2019 04/30/2020 Encounter for supervision of normal in first trimester 09/07/2019 11/02/2019 05/12/2018 11/02/2019 Overview: Estimated Date of Delivery: 06/21/18 Patient's last menstrual period was 09/14/2017. Last Tdap- 04/14/2018 Last Flu vaccine- 03/31/2018 Glucose (GTT) result- Component Latest Ref Rng & Units 03/09/2018 GLUCOSE,GESTATIONAL 65 - 139 mg/dL 82 Allergies Allergen Reactions ? ? Bee Pollen Hives ? ? Adhesive Tape-Silicones Rash Obstetric History T1 L1 SAB0 TAB0 Ectopic0 Multiple0 Live Births0 # Outcome Date GA Lbr Bryan/2nd Weight Sex Delivery Anes PTL Lv 2 Current 1 Term 02/17/11 M Create lab flowsheet for OB labs- Component Latest Ref Rng & Units 10/20/2017 10/20/2017 10/20/2017 11:00 AM 11:00 AM 11:00 AM HEMOGLOBIN 12.0 - 16.0 g/dL 14.3 MCV 80 - 100 fL 88 ANTIBODY SCREEN Negative Negative SPECIMEN EXPIRATION DATE/TIME 10/23/17 23:59 RUBELLA IGG ANTIBODY Positive 3.20 HIV-1/HIV-2 ANTIBODY Non-Reactive Non-Reactive ABORH O Rh Negative HBSAG Nonreactive Nonreactive TREPONEMA PALLIDUM Negative Negative LYME SCREEN W/REFLEX WEST BLOT Negative Negative HEMOGLOBIN A1C SCREENING <6.4 % 5.1 Component Latest Ref Rng & Units 05/26/2018 HEMOGLOBIN 12.0 - 16.0 g/dL 13.2 MCV 80 - 100 fL 95 Culture No Group B Streptococcus isolated. Past Medical History: Diagnosis Date ? ? Encounter for supervision of other normal , first trimester 10/20/2017 ? ? Obsessive-compulsive disorders ? ? Seizure (HC) One seizure, age 13 Past Surgical History: Procedure Laterality Date ? ? VA MENISCAL TRNSPL KNEE WITH SCOPE No data on file. 2nd Problems (from 10/20/17 to present) No problems associated with this episode. MILES Coelho.....05/12/2018 9:18 AM Encounter for supervision of normal in second trimester 03/31/2018 05/12/2018 Overview: Estimated Date of Delivery: 06/21/18 Patient's last menstrual period was 09/14/2017. Last Tdap- 04/14/2018 Last Flu vaccine- 03/31/2018 Glucose (GTT) result- see below Allergies Allergen Reactions ? ? Bee Pollen Hives ? ? Adhesive Tape-Silicones Rash Obstetric History T1 L1 SAB0 TAB0 Ectopic0 Multiple0 Live Births0 # Outcome Date GA Lbr Bryan/2nd Weight Sex Delivery Anes PTL Lv 2 Current 1 Term 02/17/11 M Create lab flowsheet for OB labs- Component Latest Ref Rng & Units 10/20/2017 10/20/2017 10/20/2017 11:00 AM 11:00 AM 11:00 AM HEMOGLOBIN 12.0 - 16.0 g/dL 14.3 MCV 80 - 100 fL 88 ANTIBODY SCREEN Negative Negative SPECIMEN EXPIRATION DATE/TIME 10/23/17 23:59 RUBELLA IGG ANTIBODY Positive 3.20 HIV-1/HIV-2 ANTIBODY Non-Reactive Non-Reactive ABORH O Rh Negative HBSAG Nonreactive Nonreactive TREPONEMA PALLIDUM Negative Negative LYME SCREEN W/REFLEX WEST BLOT Negative Negative HEMOGLOBIN A1C SCREENING <6.4 % 5.1 GLUCOSE,GESTATIONAL 65 - 139 mg/dL Component Latest Ref Rng & Units 03/09/2018 HEMOGLOBIN 12.0 - 16.0 g/dL MCV 80 - 100 fL ANTIBODY SCREEN Negative SPECIMEN EXPIRATION DATE/TIME RUBELLA IGG ANTIBODY HIV-1/HIV-2 ANTIBODY Non-Reactive ABORH HBSAG Nonreactive TREPONEMA PALLIDUM Negative LYME SCREEN W/REFLEX WEST BLOT Negative HEMOGLOBIN A1C SCREENING <6.4 % GLUCOSE,GESTATIONAL 65 - 139 mg/dL 82 Past Medical History: Diagnosis Date ? ? Encounter for supervision of other normal , first trimester 10/20/2017 ? ? Obsessive-compulsive disorders ? ? Seizure (HC) One seizure, age 13 Past Surgical History: Procedure Laterality Date ? ? VA MENISCAL TRNSPL KNEE WITH SCOPE No data on file. 2nd Problems (from 10/20/17 to present) No problems associated with this episode. MILES Coelho.....03/31/2018 12:12 PM Encounter for supervision of other normal , first trimester 10/20/2017 03/31/2018 Overview: Estimated Date of Delivery: 06/21/18 Patient's last menstrual period was 09/14/2017. Last Tdap- 04/13/2011 Last Flu vaccine- 04/22/2017 Allergies Allergen Reactions ? ? Bee Pollen Hives ? ? Adhesive Tape-Silicones Rash Obstetric History T1 L1 SAB0 TAB0 Ectopic0 Multiple0 Live Births0 # Outcome Date GA Lbr Bryan/2nd Weight Sex Delivery Anes PTL Lv 2 Current 1 Term 02/17/11 M Create lab flowsheet for OB labs- Component Latest Ref Rng & Units 10/20/2017 10/20/2017 10/20/2017 11:00 AM 11:00 AM 11:00 AM HEMOGLOBIN 12.0 - 16.0 g/dL 14.3 MCV 80 - 100 fL 88 ANTIBODY SCREEN Negative Negative SPECIMEN EXPIRATION DATE/TIME 10/23/17 23:59 RUBELLA IGG ANTIBODY Positive 3.20 HIV-1/HIV-2 ANTIBODY Non-Reactive Non-Reactive ABORH O Rh Negative HBSAG Nonreactive Nonreactive TREPONEMA PALLIDUM Negative Negative HEMOGLOBIN A1C SCREENING <6.4 % 5.1 Past Medical History: Diagnosis Date ? ? Encounter for supervision of other normal , first trimester 10/20/2017 ? ? Obsessive-compulsive disorders ? ? Seizure (HC) One seizure, age 13 Past Surgical History: Procedure Laterality Date ? ? VA MENISCAL TRNSPL KNEE WITH SCOPE No data on file. 2nd Problems (from 10/20/17 to present) No problems associated with this episode. MILES Coelho.....12/05/2017 7:39 AM Encounter for IUD removal 11/16/2013 High-risk 09/24/2010 11/09/19 15 Ingrowing nail 09/19/2008 02/02/2011 Other convulsions 10/28/2017 Articular cartilage disorder , site unspecified 06/14/2008 Encounters Date Type Department Care Team Description 11/29/2023 2:15 PM CDT Office Visit [facility] [address] [place] [address] Jen Matamoros MD Consult (Facial mole change) 11/29/2023 Travel 11/25/2023 Refill [facility] [address] [place] [address] Nela Stanley MD Refill Request (Sertraline) 09/23/2023 2:30 PM CDT Office Visit [facility] [address] [place] [address] Quita Corley PA Derm Problem (Red blotchy, painful/itchy rash BLE, red rash in between toes) 09/23/2023 Travel from Last 3 Months Immunizations Name Administration Dates Next Due AMB Influenza, IIV4 PF (=>6 mos Flulaval,Fluzone Fluarix)(Flu Clinic Only) 04/05/2019 COVID-19 vaccine ([employer] NTech 30mcg/0.3mL) 12YO+ BIVALENT PF, MDV 05/04/2022 COVID-19 vaccine ([employer] NTech 30mcg/0.3mL) PF, MDV 06/16/2021,04/22/2021 DTaP 01/11/1994, 0,1988,07/20,1988 HIB PRP-D (ProHIBIT) 03/22/1990 Hep B (Hepatitis B (Adult) Recombinant Adjuvanted) 12/14/2021 Hepatitis B (Peds) 09/25/1999,02/10/1999, 999 Human Papilloma Virus Vaccine 06/28/2007, 007,09/01/2006 04/02/2007 Influenza, IIV3 (Age >=3 years) 08/20/2010 Influenza, IIV4 04/07/2023,,04/16/2021,02/28,03/31/2018,04/22/2017,04/16/2016 ,07/03/2015,05/24/2014 MMR 09/06/2000,06/22/1989 Oral Polio Vaccine 01/11/1994, 0,1988,04/20 Td (Age >=7 Years) 09/06/2000 Tdap 01/08/2020,04/14/2018,04/13/2011 Tuberculin (PPD) 02/06/2007 Family History Medical History Relation Name Comments Cancer Brother 2 Diabetes Maternal Aunt Cancer Maternal Grandmother Lung Relation Name Status Comments Brother 1 Sukhdev Alive Brother 2 Father Miguel Alive Maternal Aunt Maternal Grandfather Maternal Grandmother Alive Mother Odessa Alive Paternal Grandfather Alive Paternal Grandmother Alive Sister Lauren Alive Social History Tobacco Use Types Packs/Day Years Used Date Smoking Tobacco: Never Smokeless Tobacco: Never Tobacco Cessation:Counseling Given: Yes Alcohol Use Standard Drinks/Week Comments Not Currently 0 (1 standard drink = 0.6 oz pur e alcohol) PHQ-2 Answer Date Recorded PHQ-2 TOTAL SCORE 1 07/21/2022 Social Connections Answer Date Recorded Frequency of Communication with Friends and Fami ly 0 09/23/2023 Financial Resource Strain Answer Date R ecorded Difficulty of Paying Living Expenses 3 09/23/2023 Difficulty of Paying Living Expenses Not on file 09/23/2023 Food Insecurity Answer Date Recorded Worried About Running Out of Food in the Last Ye ar 1 09/23/2023 Transportation Needs Answer Date Record ed Lack of Transportation (Medical) 1 09/23/2023 Housing Stability Answer Date Recorded Unable to Pay for Housing in the Last Year 1 09/23/2023 Sex and Gender Information Value Date Recorded Sex Assigned at Not on file Gender Identity Not on file Sexual Orientation Not on file Obstetrics History Para Term AB IAB SAB Ectopic Multiple Livin g Live Births 3 2 2 0 0 0 0 0 0 2 2 Date Outcome GA Total Labor Labor/2nd/3rd Weight Sex Type Anes PTL Live A1 A5 Name Clin Term C-Sec tion Living 011 Term M C-Sec tion Living Comments:System Genera amanda. Please review and update details. Last Filed Vital Signs Vital Sign Reading Time Taken Comments Blood Pressure 107/74 11/29/2023 2:13 PM CDT Pulse 102 11/29/2023 2:13 PM CDT Temperature 36.7 ??C (98 ??F) 09/23/2023 2:22 PM CDT Respiratory Rate 16 08/28/2021 6:31 PM OPERATIONS SCHEDULER Oxygen Saturation 98% 11/29/2023 2:13 PM CDT Inhaled Oxygen Concentration - - Weight 96.8 kg (213 lb 8 oz) 11/29/2023 2:13 PM CDT with shoes Height 156 cm (5' 1.42) 03/25/2022 9:09 AM CDT Body Mass Index 39.79 03/25/2022 9:09 AM CDT Plan of Treatment Upcoming Encounters Date Type Department Care Team (Late st Contact Info) Description 12/05/2023 4:15 PM CDT Ancillary Procedure [facility] [address] [place] [address] Health Maintenance Due Date Last Done Comments COVID-19 vaccine series ( season) 2023 05/04/2022, 06/16/2021, 04/22/2021, Additional history exists BMI (ht and wt on same day) for age 18+ 03/25/2023 03/25/2022, 07/07/2021, 06/10/2021, Additional history exists Depression screening for age 12+ 07/22/2023 07/22/2022, 07/21/2022, 06/11/2021, Additional history exists Influenza for age 9-49 02/19/2024 3, 03/11/2022, 04/16/2021, Additional history exists Pap test for age 21-65 06/10/2026 , 06/10/2021, 06/03/2017, Additional history exists Tetanus booster 01/07/2030 01/08/2020, 03/21, 04/13/2011, Additional history exists HIV for age 15-65 Completed 08/17/2019, , 11/23/2012, Additional history exists Hepatitis C screening for age 18-79 Completed 08/17/2019, 11/23/2012 Tdap Completed 01/08/2020, 03/21, 04/13/2011 Pneumococcal series for age 6-64 Aged Out No longer eligible based on patient's age to complete this topic Procedures Procedure Name Priority Date/Time Associated Diagnosis Comments PATH TISSUE EXAM Routine 11/29/2023 2:51 PM CDT Change in facial mole UNATTENDED GROUND SENSOR SPECIALIST THIN PREP PAP SCREEN IMAGED Routine 06/10/2021 11:30 AM OPERATIONS SCHEDULER Screening for cervical cancer ANTI HIV 1/2 Routine 08/17/2019 9:39 AM OPERATIONS SCHEDULER Encounter for supervision of normal first in first trimester ANTI HCV Routine 08/17/2019 9:39 AM OPERATIONS SCHEDULER Encounter for supervision of normal first in first trimester from Last 3 Months or Most Recently Relevant to Health Maintenance Results * PATH TISSUE EXAM (11/29/2023 2:51 PM CDT) Case Report Pathology Report ?Case: [id number] ? Authorizing Provider: ??Jen Matamoros MD ??Collected: ? 11/29/2023 1451 ? Ordering Location: ? [facility] ?? Received: ?11/29/2023 1512 ? Clinic ? Pathologist: ? Citlaly Iqbal MD ? Specimen: ?Jaw, left jaw lesion-stitch at 3 oclock or posterior ? 12/02/2023 9:06 AM CDT [facility] Final Diagnosis A) SKIN, LEFT JAW, EXCISION: 1. Intradermal nevus 2. Negative for malignancy 12/02/2023 9:06 AM T [facility] Comment A) Incomplete sampling of melanocytic proliferations may impair accurate diagnosis. Clinical correlation with the overall size of the lesion, and presence of remaining or recurring pigment, is required for optimal treatment. 12/02/2023 9:06 AM CDT [facility] Clinical Information Left jaw skin lesion; 5 mm slightly raised pigmented lesion with digital content coordinator colored center. 12/02/2023 9:06 AM [facility] Gross Description A) Received in formalin, labeled with the patient's name and left jaw lesion, is a 1.2 x 0.6 x 0.3 cm oriented skin ellipse with a suture designating 3:00. The skin surface is remarkable for a 0.3 x 0.3 cui-white slightly raised lesion that is 0.2 cm from the 6:00 margin. The specimen is inked as follows: 12-3 o'clock: Blue 3-6 o'clock: Green 6-9 o'clock: Red 9-12 o'clock: Yellow The specimen is entirely submitted: 1. ??3:00 and 9:00 tips 2-3. ??Remainder of specimen, sequentially submitted from 3:00 to 9:00 EVM 11/30/2023 12/02/2023 9:06 AM CDT [facility] [employer] [facility] Microscopic Description The final diagnosis is based on microscopic examination of appropriate sections of all specimens. 12/02/2023 9:06 AM CDT [facility] [employer] [facility] Additional Information Interpreted at [facility], Central Laboratory - [address] [place] [phone] 12/02/2023 9:06 AM T [facility] Other (Jaw) Non-Blood / Unknown 11/29/2023 2:51 PM CDT 11/29/2023 3:12 PM CDT Jne Matamoros MD PATHOLOGY/CY[facility]OLO GY [facility] [address] [place] [address], * UNATTENDED GROUND SENSOR SPECIALIST THIN PREP PAP SCREEN IMAGED [[id number]] (06/10/2021 11:30 AM OPERATIONS SCHEDULER) Case Report Gynecologic Cytology Report ? Case: [id number] ? Authorizing Provider: ??Xiomy Bland MD ? Collected: ? 06/10/2021 1130 ? Ordering Location: ? [facility] ?? Received: ?06/10/2021 1216 ? Clinic ? First Screen: ?Edgard Pinzon ? Specimen: ?UNATTENDED GROUND SENSOR SPECIALIST ThinPrep Vial Screening, Cervical ? 06/26/2021 1:06 PM [facility] INTERPRETATION/ RESULT NEGATIVE FOR INTRAEPITHELIAL LESION OR MALIGNANCY (NIL) (none) 06/26/2021 1:06 PM [facility] IMEN ADEQUACY Satisfactory for evaluation Endocervical component present 06/26/2021 1:06 PM [facility] [employer] LABORAT[facility]-C ENTRAL LABORATORY HPV REQUEST HPV and PAP 06/26/2021 1:06 PM [facility] Date of LMP 05/15/2021 06/26/2021 1:06 PM [facility] Last Pap Date 12/15/17 06/26/2021 1:06 PM [facility] Last Pap Result NIL 1:06 PM OPERATIONS SCHEDULER [facility] Abnormal Pap or [place] Bx in last 5 years No 06/26/2021 1:06 PM OPERATIONS SCHEDULER [facility] EN[facility] LABORATORY Menstrual Status Regular Periods 06/26/2021 1:06 PM OPERATIONS SCHEDULER [facility] [place] Bx Done Today No 06/26/2021 1:06 PM OPERATIONS SCHEDULER [facility] Additional Information None given 06/26/2021 1:06 PM OPERATIONS SCHEDULER [facility] Comment: Cytology is screened at [facility] Laboratory - [address], [place] [address] and [facility] Laboratory - [address], [place] [address] and [facility] - [address] [place] [address] [facility] Laboratory - [address], [place] [address] Automated Review Successful 06/26/2021 1:06 PM OPERATIONS SCHEDULER [facility] Comment:Specimen processed s uccessfully by automated customer relations specialist device, ThinPrep Imaging System, [employer] ANCILLARY TESTING UNATTENDED GROUND SENSOR SPECIALIST HPV Ordered, Please see separate report 06/26/2021 1:06 PM OPERATIONS SCHEDULER [facility] Note The pap test is a screening technique, not a diagnostic procedure. It is used primarily to screen for squamous cancers and precursor lesions. Published studies have shown that it is subject to both false negative and false positive results. The pap test should not be used as the sole means to diagnose or exclude pre-malignant and malignant lesions. 06/26/2021 1:06 PM [facility] Other (Cervical) Non-Blood / Unknown 06/10/2021 11:30 AM OPERATIONS SCHEDULER 06/10/2021 12:16 PM OPERATIONS SCHEDULER Xiomy Bland MD PATHOLOGY/CYTOLOGY [facility] [address] [place] [address], * ANTI HCV (08/17/2019 9:39 AM OPERATIONS SCHEDULER) HEPATITIS C ANTIBODY Non-React usha Non-React usha 08/18/2019 12:13 AM OPERATIONS SCHEDULER [facility] TRAL LABORATORY Comment:Antibodies to HCV no t detected; does not exclude the possibility of exposure to HCV. Blood BLOOD SPECIMEN / Unknown Venipuncture / Unknown 08/17/2019 9:39 AM OPERATIONS SCHEDULER 08/17/2019 9:39 AM OPERATIONS SCHEDULER Merlene MCDONNELL SEND OUTS [facility] [address] [place] [address], * ANTI HIV 1/2 (08/17/2019 9:39 AM OPERATIONS SCHEDULER) HIV-1/HIV-2 ANTIBODY Non-Reacti ve Non-Reacti ve 08/18/2019 12:25 AM OPERATIONS SCHEDULER [facility] TR[facility] LAB[facility]ORY Comment:HIV-1 p24 and HIV-1/ HIV-2 Ab not detected. Blood BLOOD SPECIMEN / Unknown Venipuncture / Unknown 08/17/2019 9:39 AM OPERATIONS SCHEDULER 08/17/2019 9:39 AM OPERATIONS SCHEDULER Merlene MCDONNELL SEND OUTS [facility] [address] [place] [address], from Last 3 Months or Most Recently Relevant to Health Maintenance Advance Directives * Full Code (Latest Code Status on File) Date Activated Date Inactivated Comments 11/23/2019 7:41 AM 11/23/2019 3:42 PM * Full Code Date Activated Date Inactivated Comments 11/23/2019 7:41 AM 11/23/2019 7:41 AM * Full Code Date Activated Date Inactivated Comments 11/02/2019 6:32 AM 11/03/2019 4:15 PM Question Answer Comments Code Status Discussion: Per Advance Care Plan Care Teams Account Services Manager Relationship Specialty Start Date End Date Nela Stanley MD [address] [place] [address] PCP - General 01/14/06
[2023-12-04] VITALS (33 sets, daily range): BP systolic 119–138; BP diastolic 64–84; PULSE 82–101; O2SAT 94–99
--- NOTE | 2023-12-04 00:24 | ED_ITS ---
HPI - Overdose General Chief Complaint: Overdose Stated Complaint: overdose Time Seen by Provider: 12/03/23 22:56 History of Present Illness HPI Narrative: Patient is a 33-year-old woman comes in today with nausea after taking 10 50 mg tablets of Zoloft after an argument with her . Patient is remorseful that she took the extra Zoloft and is not suicidal. She has had no nausea no vomiting no fevers no chills. Has no history of suicidal ideation and otherwise been feeling fine. Related Data Home Medications ?Medication ?Instructions ?Recorded ?Confirmed epinephrine 0.3 mg/0.3 mL 0.3 mg IM PRN 01/14/22 04/09/23 injection, auto-injector amitriptyline 10 mg tablet 10 mg PO QPM 10/26/22 04/09/23 sertraline 50 mg tablet 50 mg PO DAILY 10/26/22 04/09/23 Allergies Allergy/AdvReac Type Severity Reaction Status Date / Time adhesive tape Allergy Intermediate Hives Verified 11/21/22 01:52 latex Allergy Intermediate Hives Verified 11/21/22 01:52 silicone Allergy Mild Rash Verified 11/21/22 01:52 venom-honey bee Allergy Mild Hives Verified 11/21/22 01:52 Review of Systems Status of ROS: Reports: 10 or more systems reviewed and unremarkable except as noted in History and below [facility] Medical History Obsessive-compulsive disorder (09/02/06) ?F42.9 - Obsessive-compulsive disorder, unspecified (ICD-10) 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) ?Z91.030 - Bee allergy status (ICD-10) Anxiety and depression ?F41.9 - Anxiety disorder, unspecified (ICD-10) ?F32.A - Depression, unspecified (ICD-10) Menorrhagia ?N92.0 - Excessive and frequent menstruation with regular cycle (ICD-10) Seizure ?R56.9 - Unspecified convulsions (ICD-10) Impacted gallstone of gallbladder ?K80.20 - Calculus of gallbladder without cholecystitis without obstruction (ICD-10) Choledocholithiasis ?K80.50 - Calculus of bile duct without cholangitis or cholecystitis without obstruction (ICD-10) Familial cavernous cerebral angioma ?D18.02 - Hemangioma of intracranial structures (ICD-10) PCO (polycystic ovaries) ?E28.2 - Polycystic ovarian syndrome (ICD-10) Surgical History S/P right knee arthroscopy (09/10/03) ?Z98.890 - Other specified postprocedural states (ICD-10) H/O wisdom tooth extraction (~2007) ?K08.409 - Partial loss of teeth, unspecified cause, unspecified class (ICD- 10) H/O lateral meniscus repair of right knee (~2004) ?Z98.890 - Other specified postprocedural states (ICD-10) S/P laparoscopic hysterectomy (03/30/22) ?Z90.710 - Acquired absence of both cervix and uterus (ICD-10) History of salpingectomy (05/06/20) ?Z90.79 - Acquired absence of other genital organ(s) (ICD-10) Hx laparoscopic cholecystectomy (11/26/19) ?Z90.49 - Acquired absence of other specified parts of digestive tract (ICD- 10) Previous section ?Z98.891 - History of uterine scar from previous surgery (ICD-10) Family History Maternal Grandmother Lung cancer Aunt Diabetes Brother Cancer Social History Narrative: Cis-gender, heterosexual, woman Relationship status: . 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 Tobacco: Lifetime nonsmoker E-cigarettes: No Alcohol: Yes, 1-2 servings/week Illicit/recreational drugs: No Safety concerns at home or work: No Dietary restriction(s): No Exercise: Nothing in addition to her job Smoking Status: Never smoker Do you use any of these nicotine containing products: None Second hand tobacco smoke exposure: No How often do you have a drink containing alcohol: monthly or less How many standard drinks containing alcohol do you have on a typical day: 1 or 2 How often do you have six or more drinks on one occasion: Never AUDIT-C Alcohol total score: 1 Non-prescribed substance use: denies use Caffeine: Yes service: No Exam Narrative: Exam Narrative: EXAM GENERAL: Patient appears comfortable but tearful. EYES: No scleral icterus. LYMPH: No supraclavicular or cervical lymphadenopathy. SKIN: Visible skin seen during exam normal or with benign process only. EXT: No dependent lower extremity pedal edema. HEART: Regular rate and rhythm with no murmurs, rubs, or gallops. LUNGS: Clear to auscultation bilaterally with no crackles or wheezes. ABD: Soft, non tender, non distended. PSYCH: Good eye contact, speech is not pressured. Const: Vital Signs, click to edit/add: Vital Signs - 24 hr 12/03/23 22:47 12/03/23 22:55 12/03/23 22:56 Temperature 98.8 F Pulse Rate 98 103 H Pulse Rate [Left P ulse Oximeter] 95 Respiratory Rate 18 Blood Pressure 150/80 H Blood Pressure [Ri ght Upper Arm] 133/90 H Pulse Oximetry 99 97 98 Oxygen Delivery Me thod Room Air 12/03/23 22:58 12/03/23 23:00 12/03/23 23:02 Temperature Pulse Rate 98 96 93 Pulse Rate [Left P ulse Oximeter] Respiratory Rate Blood Pressure 139/61 137/76 Blood Pressure [Ri ght Upper Arm] Pulse Oximetry 99 100 100 Oxygen Delivery Me thod Course Course ED Course: Patient seen examined. Poison control recommend standard toxicology workup plus cardiac monitoring for 8 hours. Vital Signs Vital signs: Initial Vital Signs Temperature 98.8 F 12/03/23 22:47 Temperature Source Temporal Artery Scan 12/03/23 22:47 Pulse Rate 95 12/03/23 22:47 Pulse Rhythm Regular 12/03/23 22:47 Respiratory Rate 18 12/03/23 22:47 Blood Pressure 133/90 H 12/03/23 22:47 Blood Pressure Mean 104 12/03/23 22:47 Pulse Oximetry 99 12/03/23 22:47 Oxygen Delivery Method Room Air 12/03/23 22:47 Vital Signs Temperature 98.8 F 12/03/23 22:47 Pulse Rate 95 12/03/23 22:47 Respiratory Rate 18 12/03/23 22:47 Blood Pressure 133/90 H 12/03/23 22:47 Pulse Oximetry 99 12/03/23 22:47 Oxygen Delivery Method Room Air 12/03/23 22:47 Temperature 98.8 F 12/03/23 22:47 Pulse Rate 93 12/03/23 23:02 Respiratory Rate 18 12/03/23 22:47 Blood Pressure 137/76 12/03/23 23:02 Pulse Oximetry 100 12/03/23 23:02 Oxygen Delivery Method Room Air 12/03/23 22:47 MDM - Overdose MDM Narrative Medical decision making narrative: Patient is a 33-year-old woman who during a fit of rage while or guarding with her took 10 50 mg tablets of Zoloft. She is very remorseful and is not suicidal. She is jolanta for safety. We have done the toxicology workup as directed by the poison control center. We have observed her for 8 hours and at this time she is ready for discharge. She is jolanta for safety and is accompanied by her sister. Patient will follow-up with her primary physician this week. Lab Data Labs: Lab Results 12/03/23 12/03/23 12/03/23 Range/Units 22:56 22:57 23:55 WBC 10.91 (4.50-11.00) K/uL RBC 4.70 (4.00-5.20) m/uL Hgb 13.7 (12.0-16.0) gm/dL Hct 41.5 (33.0-51.0) % MCV 88 (80-100) fL MCH 29 (26-34) pg MCHC 33 (32-36) gm/dL RDW Coeff of Malcolm 12.3 (11.5-15.5) % Plt Count 320 (140-440) K/uL Neut % (Auto) 67.1 (42.0-72.0) % Lymph % (Auto) 22.3 (20-44) % [place] % (Auto) 6.8 (0.0-11.0) % Eos % (Auto) 2.1 (0.0-7.0) % Baso % (Auto) 0.5 (0.0-3.0) % Neut # (Auto) 7.33 H (1.7-7.0) K/uL Lymph # (Auto) 2.43 (0.90-2.90) K/uL [place] # (Auto) 0.70 (0.00-0.90) K/UL Eos # (Auto) 0.23 (0.00-0.50) K/uL Baso # (Auto) 0.05 (0.00-0.30) K/uL Abs Immat Gran (auto) 0.13 (0.00-0.30) K/uL Imm/Tot Granulo (auto) 1.2 % Sodium 139 (135-149) mmol/L Potassium 3.7 (3.6-5.1) mmol/L Chloride 108 (96-114) mmol/L Carbon Dioxide 21 (20-32) mmol/L Anion Gap 10 (7-15) mEq/L BUN 11 (5-24) mg/dL Creatinine 0.6 (0.5-1.5) mg/dL Estimated Creat Clear 94.00 Estimated GFR 120 ml/min Glucose 131 H (60-115) mg/dL Calcium 8.9 (8.4-10.6) mg/dL Magnesium 2.1 (1.5-2.6) mg/dL Total Bilirubin 0.7 (0.1-1.5) mg/dL AST 26 (12-35) U/L ALT 26 (4-35) U/L Alkaline Phosphatase 84 (40-150) U/L Total Protein 7.7 (6.0-8.3) g/dL Albumin 4.7 (3.3-5.0) g/dL Salicylates < 1.0 L (1.0-10) mg/dL Ur Drug Screen Comment See Note Ethyl Alcohol < 0.01 L (0.01-0.03) % Discharge Plan Discharge Clinical Impression: Drug overdose Patient Disposition: Home w/ Parent or Adult Condition: Stable Additional Instructions: Continue current care Follow-up with your doctor next week. Activity Level: No Restrictions Discharge Diet: Regular Prescriptions: No Action amitriptyline 10 mg tablet 10 mg PO QPM sertraline 50 mg tablet 50 mg PO DAILY epinephrine 0.3 mg/0.3 mL auto-injector 0.3 mg IM PRN Follow Up/Referrals: Nela Stanley MD [Primary Care Provider] - Stand Alone Forms: [employer] Info Instructions
[2023-12-04 00:34] LABS: Albumin* 4.7 g/dL (3.3-5.0)
[2023-12-04 00:35] LABS: Chloride* 108 mmol/L (96-114)
[2023-12-04 00:37] LABS: Anion Gap 10 mEq/L (7-15); Carbon Dioxide* 21 mmol/L (20-32)
[2023-12-04 00:38] LABS: Alkaline Phosphatase* 84 U/L (40-150); Calcium* 8.9 mg/dL (8.4-10.6); Total Protein* 7.7 g/dL (6.0-8.3)
[2023-12-04 00:52] LABS: Ethanol* < 0.01 % (0.01-0.03); Salicylate* < 1.0 mg/dL (1.0-10)
[2023-12-04 02:00] LABS: HCG Qualitative Serum* Negative (Negative)
[2023-12-04] MEDS: ACETAMINOPHEN 325 MG TABLET 650 MG PO (02:09)
[2023-12-04 02:24] LABS: Amphetamine Screen Urine Negative (Negative); Barbiturate Screen Urine Negative (Negative); Benzodiazepines Screen Urine Negative (Negative); Cannabinoid Screen Urine Negative (Negative); Cocaine Screen Urine Negative (Negative); Methadone Screen Urine Negative (Negative); Methamphetamines Screen Urine Negative (Negative); Opiate Screen Urine Negative (Negative); Oxycodone Screen Urine Negative (Negative); Phencyclidine Screen Urine Negative (Negative); Tricyclic Antidepressant Urine Negative (Negative)
[2023-12-04] MEDS: ONDANSETRON ODT 4 MG TAB PO (06:33)
== END 2023-12-04 06:34 | disposition home or self-care (01) ==
PROVIDERS: Emergency Provider Internal Medicine; PCP Family Medicine
DX: T43.224A Poisoning by selective serotonin reuptake inhibitors, undetermined, initial encounter (principal)
CPT/HCPCS: 36415; 80053; 80179; 80306; 82077; 83735; 84703; 85025; 93005; 99283; 99284; A9270

== ENCOUNTER 2023-12-19 01:05 | Emergency (ER) | payer BC, SELFPAY ==
[2023-12-19] VITALS (59 sets, daily range): BP systolic 98–145; BP diastolic 44–91; PULSE 77–103; RESP 20; TEMP 36.8; O2SAT 95–100; BMI 40.2
--- NOTE | 2023-12-19 01:15 | ED.GENADULT ---
HPI - General Adult General Time Seen by Provider: 01:15 <Hope Alvarado MD - Last Filed: 12/22/23 08:59> Date Seen: 12/19/23 <Hope Alvarado MD - Last Filed: 12/22/23 08:59> Chief complaint: Overdose <Hope Alvarado MD - Last Filed: 12/22/23 08:59> Stated complaint: Overdose <Hope Alvarado MD - Last Filed: 12/22/23 08:59> Time Seen by Provider: 12/19/23 01:11 <Hope Alvarado MD - Last Filed: 12/22/23 08:59> Source: patient and RN notes reviewed <Hope Alvarado MD - Last Filed: 12/22/23 08:59> Mode of arrival: ambulatory <oHpe Alvarado MD - Last Filed: 12/22/23 08:59> Limitations: no limitations <Hope Alvarado MD - Last Filed: 12/22/23 08:59> History of Present Illness HPI narrative: This 33-year-old female is ambulatory into the ED of her own accord after ingesting 30 10 mg citalopram around 1:00 a.m.. She endorses that she was stressed with her children, they were not going to sleep, reports her was not helping. She was feeling nauseated prior, had taken Zofran tonight. She states there is no chance for , has had a hysterectomy before. She admits about 3 weeks ago she took 10 sertraline tablets, she has never been hospitalized for mental health issues. She does have underlying anxiety and depression, has obsessive-compulsive disorder listed in her history. She denies any ingestion of any other substances tonight. She did tell nursing staff that she was not attempting to harm herself but I did directly challenge patient on that. Patient and I discussed that this is absolutely not normal behavior and she is had 2 reported ingestions now. I have discussed with the patient that we have reviewed this with poison Control, she needs medical clearance for 6 hours. We will do a baseline EKG, EKG should be repeated in 6 hours. QT prolongation can be an issue, have discussed this with her. She is no longer feeling nauseated. We did discuss there can be GI disturbances with her ingestion. Poison Control did not recommend any activated charcoal. I have reviewed with this patient that I am placing her on a hold for her mental health. <Hope Alvarado MD - Last Filed: 12/22/23 08:59> Related Data Home medications: Home Medications ?Medication ?Instructions ?Recorded ?Confirmed epinephrine 0.3 mg/0.3 mL 0.3 mg IM PRN 01/14/22 12/19/23 injection, auto-injector amitriptyline 10 mg tablet 10 mg PO QPM 10/26/22 12/19/23 sertraline 50 mg tablet 50 mg PO DAILY 10/26/22 04/09/23 citalopram 10 mg tablet 10 mg PO DAILY 12/19/23 12/19/23 <Hope Alvarado MD - Last Filed: 12/22/23 08:59> Allergies/adverse reactions: Allergies Allergy/AdvReac Type Severity Reaction Status Date / Time adhesive tape Allergy Intermediate Hives Verified 12/19/23 01:19 latex Allergy Intermediate Hives Verified 12/19/23 01:19 silicone Allergy Mild Rash Verified 12/19/23 01:19 venom-honey bee Allergy Mild Hives Verified 12/19/23 01:19 <Hope Alvarado MD - Last Filed: 12/22/23 08:59> Review of Systems Status of ROS: Reports: 6 or more systems reviewed and unremarkable except as noted in History and below <Hope Alvarado MD - Last Filed: 12/22/23 08:59> [facility] Medical History: Medical History Obsessive-compulsive disorder (09/02/06) ?F42.9 - Obsessive-compulsive disorder, unspecified (ICD-10) 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) ?Z91.030 - Bee allergy status (ICD-10) Anxiety and depression ?F41.9 - Anxiety disorder, unspecified (ICD-10) ?F32.A - Depression, unspecified (ICD-10) Menorrhagia ?N92.0 - Excessive and frequent menstruation with regular cycle (ICD-10) Seizure ?R56.9 - Unspecified convulsions (ICD-10) Impacted gallstone of gallbladder ?K80.20 - Calculus of gallbladder without cholecystitis without obstruction (ICD-10) Choledocholithiasis ?K80.50 - Calculus of bile duct without cholangitis or cholecystitis without obstruction (ICD-10) Familial cavernous cerebral angioma ?D18.02 - Hemangioma of intracranial structures (ICD-10) PCO (polycystic ovaries) ?E28.2 - Polycystic ovarian syndrome (ICD-10) <Hope Alvarado MD - Last Filed: 12/22/23 08:59> Surgical History: Surgical History S/P right knee arthroscopy (09/10/03) ?Z98.890 - Other specified postprocedural states (ICD-10) H/O wisdom tooth extraction (~2007) ?K08.409 - Partial loss of teeth, unspecified cause, unspecified class (ICD-10) H/O lateral meniscus repair of right knee (~2004) ?Z98.890 - Other specified postprocedural states (ICD-10) S/P laparoscopic hysterectomy (03/30/22) ?Z90.710 - Acquired absence of both cervix and uterus (ICD-10) History of salpingectomy (05/06/20) ?Z90.79 - Acquired absence of other genital organ(s) (ICD-10) Hx laparoscopic cholecystectomy (11/26/19) ?Z90.49 - Acquired absence of other specified parts of digestive tract (ICD-10) Previous section ?Z98.891 - History of uterine scar from previous surgery (ICD-10) <Hope Alvarado MD - Last Filed: 12/22/23 08:59> Family History: Family History Maternal Grandmother Lung cancer Aunt Diabetes Brother Cancer <Hope Alvarado MD - Last Filed: 12/22/23 08:59> Social History: Social History Narrative: Cis-gender, heterosexual, woman Relationship status: . 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 Tobacco: Lifetime nonsmoker E-cigarettes: No Alcohol: Yes, 1-2 servings/week Illicit/recreational drugs: No Safety concerns at home or work: No Dietary restriction(s): No Exercise: Nothing in addition to her job Smoking Status: Never smoker Do you use any of these nicotine containing products: None Second hand tobacco smoke exposure: No How often do you have a drink containing alcohol: monthly or less How many standard drinks containing alcohol do you have on a typical day: 1 or 2 How often do you have six or more drinks on one occasion: Never AUDIT-C Alcohol total score: 1 Non-prescribed substance use: denies use Caffeine: Yes service: No <Hope Alvarado MD - Last Filed: 12/22/23 08:59> Exam Const: Vital Signs, click to edit/add: Vital Signs - 24 hr 12/19/23 01:12 12/19/23 01:15 12/19/23 02:02 Temperature 98.2 F Pulse Rate 79 Pulse Rate [Right Pulse Oximeter] 95 Respiratory Rate 20 20 Blood Pressure 136/84 Blood Pressure [Le ft Upper Arm] 133/73 Pulse Oximetry 99 99 100 Oxygen Delivery Me thod Room Air 12/19/23 02:32 12/19/23 03:06 12/19/23 03:32 Temperature Pulse Rate 95 97 90 Pulse Rate [Right Pulse Oximeter] Respiratory Rate 20 20 20 Blood Pressure 98/44 L 142/57 H 123/67 Blood Pressure [Le ft Upper Arm] Pulse Oximetry 99 98 97 Oxygen Delivery Me thod 12/19/23 04:02 12/19/23 04:33 12/19/23 05:03 Temperature Pulse Rate 89 90 96 Pulse Rate [Right Pulse Oximeter] Respiratory Rate 20 20 20 Blood Pressure 133/74 109/60 126/66 Blood Pressure [Le ft Upper Arm] Pulse Oximetry 97 98 97 Oxygen Delivery Me thod 12/19/23 05:32 12/19/23 06:02 12/19/23 06:32 Temperature Pulse Rate 85 97 86 Pulse Rate [Right Pulse Oximeter] Respiratory Rate 20 20 20 Blood Pressure 117/72 117/74 125/66 Blood Pressure [Le ft Upper Arm] Pulse Oximetry 99 100 98 Oxygen Delivery Me thod 12/19/23 06:33 12/19/23 06:45 12/19/23 07:00 Temperature Pulse Rate 78 77 94 Pulse Rate [Right Pulse Oximeter] Respiratory Rate Blood Pressure Blood Pressure [Le ft Upper Arm] Pulse Oximetry 100 98 99 Oxygen Delivery Me thod 12/19/23 07:02 12/19/23 07:08 12/19/23 07:15 Temperature Pulse Rate 89 85 88 Pulse Rate [Right Pulse Oximeter] Respiratory Rate Blood Pressure 116/73 Blood Pressure [Le ft Upper Arm] Pulse Oximetry 99 98 98 Oxygen Delivery Me thod 12/19/23 07:30 12/19/23 07:45 12/19/23 08:00 Temperature Pulse Rate 84 89 85 Pulse Rate [Right Pulse Oximeter] Respiratory Rate Blood Pressure Blood Pressure [Le ft Upper Arm] Pulse Oximetry 97 99 100 Oxygen Delivery Me thod 12/19/23 08:02 12/19/23 08:15 12/19/23 08:30 Temperature Pulse Rate 95 86 94 Pulse Rate [Right Pulse Oximeter] Respiratory Rate Blood Pressure 142/85 H Blood Pressure [Le ft Upper Arm] Pulse Oximetry 98 98 99 Oxygen Delivery Or thod 12/19/23 08:32 12/19/23 09:02 12/19/23 09:28 Temperature Pulse Rate 101 H 94 Pulse Rate [Right Pulse Oximeter] Respiratory Rate Blood Pressure 123/84 124/73 Blood Pressure [Le ft Upper Arm] Pulse Oximetry 98 96 Oxygen Delivery Or thod 12/19/23 09:30 12/19/23 09:32 12/19/23 09:45 Temperature Pulse Rate 97 98 102 H Pulse Rate [Right Pulse Oximeter] Respiratory Rate Blood Pressure 134/85 Blood Pressure [Le ft Upper Arm] Pulse Oximetry 97 97 97 Oxygen Delivery Me thod 12/19/23 10:00 12/19/23 10:02 12/19/23 10:15 Temperature Pulse Rate 99 100 92 Pulse Rate [Right Pulse Oximeter] Respiratory Rate Blood Pressure 139/88 Blood Pressure [Le ft Upper Arm] Pulse Oximetry 97 97 96 Oxygen Delivery Or thod 12/19/23 10:30 12/19/23 10:32 12/19/23 10:45 Temperature Pulse Rate 93 98 94 Pulse Rate [Right Pulse Oximeter] Respiratory Rate Blood Pressure 129/90 H Blood Pressure [Le ft Upper Arm] Pulse Oximetry 96 96 [facility] 11:00 12/19/23 11:02 12/19/23 11:15 Temperature Pulse Rate 98 94 95 Pulse Rate [Right Pulse Oximeter] Respiratory Rate Blood Pressure 133/88 Blood Pressure [Le ft Upper Arm] Pulse Oximetry 97 98 97 [facility] 12/[facility]/23 11:30 12/19/23 11:32 12/19/23 12:35 Temperature Pulse Rate 91 87 93 Pulse Rate [Right Pulse Oximeter] Respiratory Rate Blood Pressure 140/86 H Blood Pressure [Le ft Upper Arm] Pulse Oximetry 96 97 96 [facility] 12/19/23 12:36 12/19/23 12:36 12/19/23 12:45 Temperature Pulse Rate 96 96 97 Pulse Rate [Right Pulse Oximeter] Respiratory Rate Blood Pressure 135/80 135/80 Blood Pressure [Le ft Upper Arm] Pulse Oximetry 97 97 95 [facility] 12/[facility]/23 13:00 12/19/23 13:02 12/19/23 13:15 Temperature Pulse Rate 90 99 98 Pulse Rate [Right Pulse Oximeter] Respiratory Rate Blood Pressure 129/83 Blood Pressure [Le ft Upper Arm] Pulse Oximetry 98 97 98 [facility] 12/[facility]/23 13:30 12/19/23 13:32 12/19/23 13:45 Temperature Pulse Rate 95 89 87 Pulse Rate [Right Pulse Oximeter] Respiratory Rate Blood Pressure 118/91 H Blood Pressure [Le ft Upper Arm] Pulse Oximetry 97 97 96 [facility] 12[facility]/23 14:00 12/19/23 14:02 Temperature Pulse Rate 98 103 H Pulse Rate [Right Pulse Oximeter] Respiratory Rate Blood Pressure 131/73 Blood Pressure [Le ft Upper Arm] Pulse Oximetry 97 97 [facility] is alert, interactive, no apparent distress but tearful. She definitely seems sad. Her speech is normal, does have good eye contact with me. Denies suicidality but admits that she does agree with me that this is not normal behavior. Symmetrical facial function, or pharynx normal. Neck supple, no adenopathy, no thyromegaly masses or nodules. Lungs are clear, good air entry, no wheezing or crackles. CV regular rate and rhythm, no murmur, normal S1-S2, no S3-S4. Abdomen is soft, nontender, nondistended, no organomegaly. Patient was ambulatory into the ED of her own accord. Skin is normal, no wounds, no rash. <Hope Alvarado MD - Last Filed: 12/22/23 08:59> Vital Signs, click to edit/add: Vital Signs - 24 hr 12/19/23 01:12 12/19/23 01:15 12/19/23 02:02 Temperature 98.2 F Pulse Rate 79 Pulse Rate [Right Pulse Oximeter] 95 Respiratory Rate 20 20 Blood Pressure 136/84 Blood Pressure [Le ft Upper Arm] 133/73 Pulse Oximetry 99 99 100 [facility] 12/19/23 02:32 12/19/23 03:06 12/19/23 03:32 Temperature Pulse Rate 95 97 90 Pulse Rate [Right Pulse Oximeter] Respiratory Rate 20 20 20 Blood Pressure 98/44 L 142/57 H 123/67 Blood Pressure [Le ft Upper Arm] Pulse Oximetry 99 98 97 [facility] 12/19/23 04:02 12/19/23 04:33 12/19/23 05:03 Temperature Pulse Rate 89 90 96 Pulse Rate [Right Pulse Oximeter] Respiratory Rate 20 20 20 Blood Pressure 133/74 109/60 126/66 Blood Pressure [Le ft Upper Arm] Pulse Oximetry 97 98 97 [facility] 12/19/23 05:32 12/19/23 06:02 12/19/23 06:32 Temperature Pulse Rate 85 97 86 Pulse Rate [Right Pulse Oximeter] Respiratory Rate 20 20 20 Blood Pressure 117/72 117/74 125/66 Blood Pressure [Le ft Upper Arm] Pulse Oximetry 99 100 98 [facility] 12/19/23 06:33 12/19/23 06:45 12/19/23 07:00 Temperature Pulse Rate 78 77 94 Pulse Rate [Right Pulse Oximeter] Respiratory Rate Blood Pressure Blood Pressure [Le ft Upper Arm] Pulse Oximetry 100 98 99 [facility] 12/[facility]/23 07:02 12/19/23 07:08 12/19/23 07:15 Temperature Pulse Rate 89 85 88 Pulse Rate [Right Pulse Oximeter] Respiratory Rate Blood Pressure 116/73 Blood Pressure [Le ft Upper Arm] Pulse Oximetry 99 98 98 Oxygen Delivery Me thod 12/19/23 07:30 12/19/23 07:45 12/19/23 08:00 Temperature Pulse Rate 84 89 85 Pulse Rate [Right Pulse Oximeter] Respiratory Rate Blood Pressure Blood Pressure [Le ft Upper Arm] Pulse Oximetry 97 99 100 Oxygen Delivery Me thod 12/19/23 08:02 12/19/23 08:15 12/19/23 08:30 Temperature Pulse Rate 95 86 94 Pulse Rate [Right Pulse Oximeter] Respiratory Rate Blood Pressure 142/85 H Blood Pressure [Le ft Upper Arm] Pulse Oximetry 98 98 99 Oxygen Delivery Me thod 12/19/23 08:32 12/19/23 09:02 12/19/23 09:28 Temperature Pulse Rate 101 H 94 Pulse Rate [Right Pulse Oximeter] Respiratory Rate Blood Pressure 123/84 124/73 Blood Pressure [Le ft Upper Arm] Pulse Oximetry 98 96 Oxygen Delivery Me thod 12/19/23 09:30 12/19/23 09:32 12/19/23 09:45 Temperature Pulse Rate 97 98 102 H Pulse Rate [Right Pulse Oximeter] Respiratory Rate Blood Pressure 134/85 Blood Pressure [Le ft Upper Arm] Pulse Oximetry 97 97 97 Oxygen Delivery Or thod 12/19/23 10:00 12/19/23 10:02 12/19/23 10:15 Temperature Pulse Rate 99 100 92 Pulse Rate [Right Pulse Oximeter] Respiratory Rate Blood Pressure 139/88 Blood Pressure [Le ft Upper Arm] Pulse Oximetry 97 97 96 Oxygen Delivery Or thod 12/19/23 10:30 12/19/23 10:32 12/19/23 10:45 Temperature Pulse Rate 93 98 94 Pulse Rate [Right Pulse Oximeter] Respiratory Rate Blood Pressure 129/90 H Blood Pressure [Le ft Upper Arm] Pulse Oximetry 96 96 96 Oxygen Delivery Me thod 12/19/23 11:00 12/19/23 11:02 12/19/23 11:15 Temperature Pulse Rate 98 94 95 Pulse Rate [Right Pulse Oximeter] Respiratory Rate Blood Pressure 133/88 Blood Pressure [Le ft Upper Arm] Pulse Oximetry 97 98 97 Oxygen Delivery Me thod 12/19/23 11:30 12/19/23 11:32 12/19/23 12:35 Temperature Pulse Rate 91 87 93 Pulse Rate [Right Pulse Oximeter] Respiratory Rate Blood Pressure 140/86 H Blood Pressure [Le ft Upper Arm] Pulse Oximetry 96 97 96 Oxygen Delivery Me thod 12/19/23 12:36 12/19/23 12:36 12/19/23 12:45 Temperature Pulse Rate 96 96 97 Pulse Rate [Right Pulse Oximeter] Respiratory Rate Blood Pressure 135/80 135/80 Blood Pressure [Le ft Upper Arm] Pulse Oximetry 97 97 95 Oxygen Delivery Me thod 12/19/23 13:00 12/19/23 13:02 12/19/23 13:15 Temperature Pulse Rate 90 99 98 Pulse Rate [Right Pulse Oximeter] Respiratory Rate Blood Pressure 129/83 Blood Pressure [Le ft Upper Arm] Pulse Oximetry 98 97 98 Oxygen Delivery Me thod 12/19/23 13:30 12/19/23 13:32 12/19/23 13:45 Temperature Pulse Rate 95 89 87 Pulse Rate [Right Pulse Oximeter] Respiratory Rate Blood Pressure 118/91 H Blood Pressure [Le ft Upper Arm] Pulse Oximetry 97 97 96 Oxygen Delivery Me thod 12/19/23 14:00 12/19/23 14:02 Temperature Pulse Rate 98 103 H Pulse Rate [Right Pulse Oximeter] Respiratory Rate Blood Pressure 131/73 Blood Pressure [Le ft Upper Arm] Pulse Oximetry 97 97 Oxygen Delivery Me thod <Hugo Manzano MD - Last Filed: 12/19/23 14:38> Documenting provider has reviewed patient's vital signs: yes <Hope Alvarado MD - Last Filed: 12/22/23 08:59> Course Course ED Course: This 33-year-old female has had an intentional ingestion of 30 tablets of 10 mg citalopram. She will need medical clearance and if stable after 6 hours we will have achieved that. She will be on cardiac monitoring, pulse oximetry. We will establish an IV and get appropriate blood work and consider other ingestions. Will be doing urine drug screen. She is status post hysterectomy, thus, no concern for . Will do a triple viral swab to ensure no COVID. I do think that this patient should have emergent psychiatric evaluation. We will achieve medical clearance and then look for placement for her. We do not have outside telehealth services at this time. Environmental Field Team Member will be here in the morning and can help assist with this patient as well. If appropriate safe outpatient alternatives arrangements can be made that her satisfactory for safety of this patient, that is a possibility but will need to wait for medical clearance as well as social service technician to assist us in the morning. <Hope Alvarado MD - Last Filed: 12/22/23 08:59> Reevaluation(s) Time of Reevaluation #1: 03:01 <Hope Alvarado MD - Last Filed: 12/22/23 08:59> Reevaluation #1: Patient having significant nausea, feels like she might throw up. Will give her 2.5 mg IV Valium and see if this helps. Will avoid QT prolonging agents at this time such as Zofran. <Hope Alvarado MD - Last Filed: 12/22/23 08:59> Time of Reevaluation #2: 07:42 <Hope Alvarado MD - Last Filed: 12/22/23 08:59> Reevaluation #2: EKG on repeat this morning at 7:26 a.m. is showing sinus rhythm with PVC. QT corrected has prolonged to 500 milliseconds. There is artifact seen in V3. Given the prolongation of the QT interval, will recheck her potassium this morning, check a magnesium level. Will initiate 1 g IV magnesium over an hour prophylactically. Given that her potassium was 3.5 last night, will give oral effervescent potassium while we await these 2 current labs. Did review this with the patient. She understands the rationale for the potassium and the magnesium. Nursing staff will update poison Control. <Hope Alvarado MD - Last Filed: 12/22/23 08:59> Vital Signs Vital signs: Initial Vital Signs Pulse Oximetry 99 12/19/23 01:12 Vital Signs Pulse Oximetry 99 12/19/23 01:12 Temperature 98.2 F 12/19/23 01:15 Pulse Rate 83 12/19/23 19:07 Respiratory Rate 20 12/19/23 06:32 Blood Pressure 126/83 12/19/23 19:08 Pulse Oximetry 97 12/19/23 19:07 Oxygen Delivery Method Room Air 12/19/23 01:15 <Hope Alvarado MD - Last Filed: 12/22/23 08:59> Initial Vital Signs Pulse Oximetry 99 12/19/23 01:12 Vital Signs Pulse Oximetry 99 12/19/23 01:12 Temperature 98.2 F 12/19/23 01:15 Pulse Rate 83 12/19/23 19:07 Respiratory Rate 20 12/19/23 06:32 Blood Pressure 126/83 12/19/23 19:08 Pulse Oximetry 97 12/19/23 19:07 Oxygen Delivery Method Room Air 12/19/23 01:15 <Hugo Manzano MD - Last Filed: 12/19/23 14:38> Medications Administered Medications: Discontinued Medications Generic Name Dose Route Start Last Admin Trade Name Freq PRN Reason Stop Dose Admin Acetaminophen 1,000 mg 12/19/23 15:01 12/19/23 15:03 Acetaminophen 500 Mg Tablet PO 12/19/23 15:02 1,000 mg ONCE ONE Administration Diazepam 2.5 mg 12/19/23 03:01 12/19/23 03:07 Diazepam 5 Mg/Ml Inj IV 12/19/23 03:02 2.5 mg ONCE ONE Administration Magnesium Sulfate/Dextrose 1 gm in 100 mls @ 100 mls/hr 12/19/23 07:42 12/19/23 09:11 Magnesium Sulf 1 G/100 Ml-D5w IVPB 12/19/23 08:41 Infused ONCE ONE Infusion Potassium Bicarbonate 25 meq 12/19/23 07:44 12/19/23 08:00 Potassium Bicarb 25 Meq Effervescent Tab PO 12/19/23 07:45 25 meq ONCE ONE Administration <Hope Alvarado MD - Last Filed: 12/22/23 08:59> Discontinued Medications Generic Name Dose Route Start Last Admin Trade Name Freq PRN Reason Stop Dose Admin Acetaminophen 1,000 mg 12/19/23 15:01 12/19/23 15:03 Acetaminophen 500 Mg Tablet PO 12/19/23 15:02 1,000 mg ONCE ONE Administration Diazepam 2.5 mg 12/19/23 03:01 12/19/23 03:07 Diazepam 5 Mg/Ml Inj IV 12/19/23 03:02 2.5 mg ONCE ONE Administration Magnesium Sulfate/Dextrose 1 gm in 100 mls @ 100 mls/hr 12/19/23 07:42 12/19/23 09:11 Magnesium Sulf 1 G/100 Ml-D5w IVPB 12/19/23 08:41 Infused ONCE ONE Infusion Potassium Bicarbonate 25 meq 12/19/23 07:44 12/19/23 08:00 Potassium Bicarb 25 Meq Effervescent Tab PO 12/19/23 07:45 25 meq ONCE ONE Administration <Hugo Manzano MD - Last Filed: 12/19/23 14:38> Medical Decision Making MDM Narrative Medical decision making narrative: This patient comes in because of an intentional ingestion of 30 tablets of citalopram. I inherited care for this patient after the overnight physician finished her shift. An EKG at that time showed corrected QT interval at 500 milliseconds. A phone call was made a couple times to poison Control regarding this who state that there is a more accurate predictor of torsade by looking at the uncorrected QT interval and dividing it by the patient's heart rate. Poison control staff reassure us that this patient is medically cleared and not currently at risk for a cardiac dysrhythmia. Additionally her dosage and timing of when she ingested it indicates that the peak of the affect of this medicine has passed. The patient was evaluated also by our social service assistant who recommends inpatient evaluation treatment. Arrangements are being made for this. I did speak with the patient and her father and updated regarding these matters and the current plans. The patient did receive oral doses of magnesium and potassium. Dr. Flaco Manzano <Hugo Manzano MD - Last Filed: 12/19/23 14:38> Lab Data Lab results reviewed: Yes I reviewed the patient's lab results <Hope Alvarado MD - Last Filed: 12/22/23 08:59> Labs: Lab Results 12/19/23 12/19/23 12/19/23 Range/Units 01:29 01:45 08:05 WBC 9.24 (4.50-11.00) K/uL RBC 4.77 (4.00-5.20) m/uL Hgb 13.9 (12.0-16.0) gm/dL Hct 42.8 (33.0-51.0) % MCV 90 (80-100) fL MCH 29 (26-34) pg MCHC 33 (32-36) gm/dL RDW Coeff of Malcolm 12.5 (11.5-15.5) % Plt Count 315 (140-440) K/uL Neut % (Auto) 58.2 (42.0-72.0) % Lymph % (Auto) 31.2 (20-44) % Allen % (Auto) 7.6 (0.0-11.0) % Eos % (Auto) 2.1 (0.0-7.0) % Baso % (Auto) 0.3 (0.0-3.0) % Neut # (Auto) 5.38 (1.7-7.0) K/uL Lymph # (Auto) 2.88 (0.90-2.90) K/uL Allen # (Auto) 0.70 (0.00-0.90) K/UL Eos # (Auto) 0.19 (0.00-0.50) K/uL Baso # (Auto) 0.03 (0.00-0.30) K/uL Abs Immat Gran (auto) 0.06 (0.00-0.30) K/uL Imm/Tot Granulo (auto) 0.6 % Sodium 138 (135-149) mmol/L Potassium 3.5 L 4.0 (3.6-5.1) mmol/L Chloride 105 (96-114) mmol/L Carbon Dioxide 27 (20-32) mmol/L Anion Gap 6 L (7-15) mEq/L BUN 8 (5-24) mg/dL Creatinine 0.6 (0.5-1.5) mg/dL Estimated Creat Clear 98.75 Estimated GFR 120 ml/min Glucose 105 (60-115) mg/dL Calcium 8.6 (8.4-10.6) mg/dL Magnesium 2.2 (1.5-2.6) mg/dL Total Bilirubin 0.6 (0.1-1.5) mg/dL AST 38 H (12-35) U/L ALT 28 (4-35) U/L Alkaline Phosphatase 87 (40-150) U/L Total Protein 7.5 (6.0-8.3) g/dL Albumin 4.5 (3.3-5.0) g/dL Salicylates < 1.0 L (1.0-10) mg/dL Urine Opiates Screen Negative (Negative) Ur Oxycodone Screen Negative (Negative) Urine Methadone Screen Negative (Negative) Acetaminophen < 10.0 L (10.0-30.0) ug/mL Ur Barbiturates Screen Negative (Negative) U Tricyclic Antidepress Negative (Negative) Ur Phencyclidine Scrn Negative (Negative) Ur Amphetamines Screen Negative (Negative) U Methamphetamines Scrn Negative (Negative) U Benzodiazepines Scrn Negative (Negative) Urine Cocaine Screen Negative (Negative) U Marijuana (THC) Screen Negative (Negative) Ur Drug Screen Comment See Note Ethyl Alcohol < 0.01 L (0.01-0.03) % SARS-CoV-2 (PCR) Negative SARS-CoV-2 (Negative) Influenza Type A (PCR) Negative PCR FLU A (Negative) Influenza Type B (PCR) Negative PCR FLU B (Negative) RSV (PCR) Negative PCR RSV (Negative) <Hope Alvarado MD - Last Filed: 12/22/23 08:59> Lab Results 12/19/23 12/19/23 12/19/23 Range/Units 01:29 01:45 08:05 WBC 9.24 (4.50-11.00) K/uL RBC 4.77 (4.00-5.20) m/uL Hgb 13.9 (12.0-16.0) gm/dL Hct 42.8 (33.0-51.0) % MCV 90 (80-100) fL MCH 29 (26-34) pg MCHC 33 (32-36) gm/dL RDW Coeff of Malcolm 12.5 (11.5-15.5) % Plt Count 315 (140-440) K/uL Neut % (Auto) 58.2 (42.0-72.0) % Lymph % (Auto) 31.2 (20-44) % Allen % (Auto) 7.6 (0.0-11.0) % Eos % (Auto) 2.1 (0.0-7.0) % Baso % (Auto) 0.3 (0.0-3.0) % Neut # (Auto) 5.38 (1.7-7.0) K/uL Lymph # (Auto) 2.88 (0.90-2.90) K/uL Allen # (Auto) 0.70 (0.00-0.90) K/UL Eos # (Auto) 0.19 (0.00-0.50) K/uL Baso # (Auto) 0.03 (0.00-0.30) K/uL Abs Immat Gran (auto) 0.06 (0.00-0.30) K/uL Imm/Tot Granulo (auto) 0.6 % Sodium 138 (135-149) mmol/L Potassium 3.5 L 4.0 (3.6-5.1) mmol/L Chloride 105 (96-114) mmol/L Carbon Dioxide 27 (20-32) mmol/L Anion Gap 6 L (7-15) mEq/L BUN 8 (5-24) mg/dL Creatinine 0.6 (0.5-1.5) mg/dL Estimated Creat Clear 98.75 Estimated GFR 120 ml/min Glucose 105 (60-115) mg/dL Calcium 8.6 (8.4-10.6) mg/dL Magnesium 2.2 (1.5-2.6) mg/dL Total Bilirubin 0.6 (0.1-1.5) mg/dL AST 38 H (12-35) U/L ALT 28 (4-35) U/L Alkaline Phosphatase 87 (40-150) U/L Total Protein 7.5 (6.0-8.3) g/dL Albumin 4.5 (3.3-5.0) g/dL Salicylates < 1.0 L (1.0-10) mg/dL Urine Opiates Screen Negative (Negative) Ur Oxycodone Screen Negative (Negative) Urine Methadone Screen Negative (Negative) Acetaminophen < 10.0 L (10.0-30.0) ug/mL Ur Barbiturates Screen Negative (Negative) U Tricyclic Antidepress Negative (Negative) Ur Phencyclidine Scrn Negative (Negative) Ur Amphetamines Screen Negative (Negative) U Methamphetamines Scrn Negative (Negative) U Benzodiazepines Scrn Negative (Negative) Urine Cocaine Screen Negative (Negative) U Marijuana (THC) Screen Negative (Negative) Ur Drug Screen Comment See Note Ethyl Alcohol < 0.01 L (0.01-0.03) % SARS-CoV-2 (PCR) Negative SARS-CoV-2 (Negative) Influenza Type A (PCR) Negative PCR FLU A (Negative) Influenza Type B (PCR) Negative PCR FLU B (Negative) RSV (PCR) Negative PCR RSV (Negative) <Hugo Manzano MD - Last Filed: 12/19/23 14:38> ECG Data Attestation: I personally reviewed and interpreted this ECG as follows: (Normal sinus rhythm with sinus arrhythmia, 77 beats per minute. No ischemia or infarct. QT corrected 445 milliseconds.) <Hope Alvarado MD - Last Filed: 12/22/23 08:59> Prior ECG tracings: available for review (Compared to 12/03/2019 for EKG, no significant change, QT interval stable.) <Hope Alvarado MD - Last Filed: 12/22/23 08:59> Discharge Plan Discharge Clinical Impression: Intentional drug overdose <Hope Alvarado MD - Last Filed: 12/22/23 08:59> Prescriptions: No Action amitriptyline 10 mg tablet 10 mg PO QPM sertraline 50 mg tablet 50 mg PO DAILY epinephrine 0.3 mg/0.3 mL auto-injector 0.3 mg IM PRN citalopram 10 mg tablet 10 mg PO DAILY <Hope Alvarado MD - Last Filed: 12/22/23 08:59> Follow Up/Referrals: Nela Stanley MD [Primary Care Provider] - <Hope Alvarado MD - Last Filed: 12/22/23 08:59>
[2023-12-19 01:52] LABS: Amphetamine Screen Urine Negative (Negative); Barbiturate Screen Urine Negative (Negative); Benzodiazepines Screen Urine Negative (Negative); Cannabinoid Screen Urine Negative (Negative); Cocaine Screen Urine Negative (Negative); Methadone Screen Urine Negative (Negative); Methamphetamines Screen Urine Negative (Negative); Opiate Screen Urine Negative (Negative); Oxycodone Screen Urine Negative (Negative); Phencyclidine Screen Urine Negative (Negative); Tricyclic Antidepressant Urine Negative (Negative)
--- OUTSIDE RECORDS SUMMARY | 2023-12-19 01:52 | XMS_ITS | Clinical Summary ---
Author Organization [email or web address] [facility] Address [place], [place] [address] Care Team Providers Care Signal Mechanic Name Role Phone Nela Stanley MD Primary [...] Patient will call as needed 1 Each 06/10/20 21 Active nystatin powder (MYCOSTATIN) powderIndications: Candidal intertrigo Apply 1 Strip topically to affected area(s) three times daily. 60 g 06/20/19 24 Active ondansetron (ZOFRAN ODT) 4 mg disintegrating tabletIndications: Nausea Place 1 Tablet (4 mg) on the tongue every 8 hours if needed for Nausea/Vomiting. 20 Tablet 2 07/15/19 24 Active sertraline (ZOLOFT) 50 mg tabletIndications: Obsessive-compulsi ve disorder, unspecified type TAKE ONE TABLET BY MOUTH EVERY MORNING 90 Tablet 3 11/27/19 24 Active citalopram (CELEXA) 10 mg tabletIndications: Obsessive-compulsi ve disorder, unspecified type,Anxiety Take 1 Tablet (10 mg) by mouth once daily in the morning. 60 Tablet 2 12/08/19 24 Active sertraline (ZOLOFT) 50 mg tabletIndications: Obsessive-compulsi ve disorder, unspecified type TAKE ONE TABLET BY MOUTH EVERY MORNING 90 Tablet 3 11/10/19 23 024 Discontinued fluconazole (DIFLUCAN) 150 mg tabletIndications: Yeast vaginitis Take 1 Tablet (150 mg) by mouth once daily. May repeat a second dose in 1 week if symptoms persist 2 Tablet 06/02/20 23 024 Discontinued(*M ed complete/Regime n complete/Level of care change) amitriptyline (ELAVIL) 10 mg tabletIndications: Daily headache TAKE ONE TABLET BY MOUTH ONCE NIGHTLY AT BEDTIME 30 Tablet 06/04/20 23 024 Discontinued(*M ed complete/Regime n complete/Level of care change) triamcinolone 0.5% (ARISTOCORT) 0.5 % creamIndications:R jose elias Apply topically to affected area(s) three times daily. 15 g 1 09/23/19 24 024 Discontinued(*P atient states no longer taking) Active Problems Problem Noted Date Diagnosed Date Pap smear for cervical cancer screening 05/20/20 Overview: 05/2021 NIL/HPV Negative. PLAN: HPV testing [...] Surgical History: . Laterality Date ? ? MD MENISCAL TRNSPL KNEE WITH SCOPE No data [...] Surgical History: Procedure Laterality Date ? ? MD MENISCAL TRNSPL KNEE WITH SCOPE No data [...] Surgical History: Procedure Laterality Date ? ? MD MENISCAL TRNSPL KNEE WITH SCOPE No data [...] Surgical History: Procedure Laterality Date ? ? MD MENISCAL TRNSPL KNEE WITH SCOPE No data on file. 2nd Problems (from 10/20/17 to present) No problems associated with this episode. Ginna Gibbons RNC.....12/05/2017 7:39 AM Encounter for IUD removal 11/16/2013 High-risk 09/24/2010 11/09/19 15 Ingrowing nail 09/19/2008 02/02/2011 Other convulsions 10/28/2017 Articular cartilage disorder , site unspecified 06/14/2008 Encounters Date Type Department Care Team Description 12/14/2023 10:00 AM CDT Office Visit [facility] [address] [place] [address] Desiree Morton [facility] Visit 12/14/2023 Travel 12/12/2023 Telephone [facility] [address] [phone] Alverto Joesph MD Appointment 12/08/2023 9:05 AM CDT Office Visit [facility] [address] [place] [address] Nela Stanley MD ER Follow up (Took 10, 50 mg sertraline yesterday. Went to the ER. States she was not out to hurt herself, was just very upset./Has not been taking regularly. Does not think it is working, has been on for a long time/Would like to switch medication) 12/08/2023 Travel 12/05/2023 4:15 PM CDT Ancillary Procedure [facility] [address] [place] [address] 12/05/2023 Travel 11/29/2023 2:15 PM CDT Office Visit [facility] [address] [place] [address] Jen Matamoros MD Consult (Facial mole change) 11/29/2023 Travel 11/25/2023 Refill [facility] [address] [place] [address] Nela Stanley MD Refill Request (Sertraline) 09/23/2023 2:30 PM CDT Office Visit [facility] [address] [place] [address] Quita Corley PA Derm Problem (Red blotchy, painful/itchy rash BLE, red rash in between toes) 09/23/2023 Travel from Last 3 Months Immunizations Name Administration Dates Next Due AMB Influenza, IIV4 PF (=>6 mos Flulaval,Fluzone Fluarix)(Flu Clinic Only) 04/05/2019 COVID-19 vaccine (Cyanogen-Bio NTech 30mcg/0.3mL) 12YO+ BIVALENT PF, MDV 05/04/2022 COVID-19 vaccine (Cyanogen-Bio NTech 30mcg/0.3mL) PF, MDV 06/16/2021,04/22/2021 DTaP 01/11/1994, 0,1988,07/20,1988 HIB PRP-D (ProHIBIT) 03/22/1990 Hep B (Hepatitis B (Adult) Recombinant Adjuvanted) 12/14/2021 Hepatitis B (Peds) 09/25/1999,02/10/1999, 999 Human Papilloma Virus Vaccine 06/28/2007, 007,09/01/2006 04/02/2007 Influenza Virus, Unspecified 08/20/2010 Influenza, IIV3 (Age >=3 years) 08/20/2010 Influenza, [...] PHQ-2 Answer Date Recorded PHQ-2 TOTAL SCORE 0 12/08/2023 Social Connections Answer Date Recorded Frequency of [...] Sign Reading Time Taken Comments Blood Pressure 106/71 12/08/2023 9:14 AM CDT Pulse 70 12/08/2023 9:14 AM CDT Temperature 36.7 ??C (98 ??F) 09/23/2023 2:22 PM CDT Respiratory Rate 16 08/28/2021 6:31 PM HOME RESTORATION SERVICE SUPERVISOR Oxygen Saturation 98% 12/08/2023 9:14 AM CDT Inhaled Oxygen Concentration - - Weight 95.8 kg (211 lb 1.6 oz) 12/08/2023 9:14 A M CDT Height 156.2 cm (5' 1.5) 12/08/2023 9:14 AM CDT Body Mass Index 39.24 12/08/2023 9:14 AM CDT Plan of Treatment Upcoming Encounters Date Type Department Care Team (Late st Contact Info) Description 12/21/2023 12:00 PM CDT Phone Office Visit [facility] [address] [phone] Malena Saeed PA [address] [place] [address] 12/28/2023 10:00 AM CDT Office Visit [facility] [address] [place] [address] Desiree Morton, [facility] [address] [place] [address] Health Maintenance Due Date Last Done Comments COVID-19 vaccine series (2022- season) 2023 05/04/2022, 06/16/2021, 04/22/2021, Additional history exists Influenza for age 9-49 02/19/2024 , 03/11/2022, 04/16/2021, Additional history exists BMI (ht and wt on same day) for age 18+ 12/07/2024 12/08/2023, 03/25/2022, 07/07/2021, Additional history exists Depression screening for age 12+ 12/07/2024 12/08/2023, 07/22/2022, 07/21/2022, Additional history exists Pap test for age [...] Procedure Name Priority Date/Time Associated Diagnosis Comments MR HEAD BRAIN WWO Routine 12/05/2023 4:3 6 PM CDT Familial cavernous cerebral angioma (HC) PATH TISSUE EXAM Routine 11/29/2023 2:51 PM CDT Change in facial mole SHAFT TENDER THIN PREP PAP SCREEN IMAGED Routine 06/10/2021 11:30 AM HOME RESTORATION SERVICE SUPERVISOR Screening for cervical cancer ANTI HIV 1/2 Routine 08/17/2019 9:39 AM HOME RESTORATION SERVICE SUPERVISOR Encounter for supervision of normal first in first trimester ANTI HCV Routine 08/17/2019 9:39 AM HOME RESTORATION SERVICE SUPERVISOR Encounter for supervision of normal first in first trimester from Last 3 Months or Most Recently Relevant to Health Maintenance Results * MR HEAD BRAIN WWO (12/05/2023 4:36 PM CDT) Anatomical Region Laterality Modality BRAIN, HEAD Magnetic Resonan ce 12/06/2023 10:4 5 AM CDT Impressions 12/06/2023 10:45 AM CDT 1. 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 No evidence of enlargement/interval rebleeding. 2. No acute ischemia. No other interval change. Dictated by Audie Giordano MD @ 12/06/2023 10:45:14 AM (Electronically Signed) Narrative 12/06/2023 10:45 AM CDT For Patients: ??As a result of the Cures Act, medical imaging exams and procedure reports are released immediately into your electronic medical record. ??You may view this report before your referring provider. ??If you have questions, please contact your health care provider. INDICATION: Cavernoma follow-up. TECHNIQUE: Brain MRI with and without contrast. 10 cc gadolinium based contrast administered. COMPARISON: Brain MRI from 07/22/2022. FINDINGS: Again demonstrated is the 1.5 centimeter cavernoma within the left frontal operculum, the 9 millimeter cavernoma within the right basal frontal region and the 8 millimeter cavernoma within the left cerebral peduncle/maryam. No evidence of enlargement/interval rebleeding. No evidence of acute ischemia. No pathologic intracranial enhancement. No intracranial signal abnormality. No hydrocephalus or extra-axial collections. The pituitary gland, parasellar structures and optic chiasm are normal. Posterior fossa is normal. All the major intracranial vascular structures demonstrate normal flow-related signal. The orbital contents are normal. No calvarial or skull base marrow signal abnormality. No obstructive sinus disease. No extracranial soft tissue findings. Procedure Note Audie Giordano MD - 12/06/2023 For Patients: As a result of the Cures Act, medical imagingexams and procedure reports are released immediately into your electronicmedical record. You may view this report before your referring provider.If you have questions, please contact your health care provider. INDICATION: Cavernoma follow-up. TECHNIQUE: Brain MRI with and without contrast. 10 cc gadolinium based contrastadministered. COMPARISON: Brain MRI from 07/22/2022. FINDINGS: Again demonstrated is the 1.5 centimeter cavernoma within the left frontaloperculum, the 9 millimeter cavernoma within the right basal frontalregion and the 8 millimeter cavernoma within the left cerebralpeduncle/maryam. No evidence of enlargement/interval rebleeding. No evidence of acute ischemia. No pathologic intracranial enhancement. Nointracranial signal abnormality. No hydrocephalus or extra-axialcollections. The pituitary gland, parasellar structures and optic chiasmare normal. Posterior fossa is normal. All the major intracranial vascularstructures demonstrate normal flow-related signal. The orbital contents are normal. No calvarial or skull base marrow signalabnormality. No obstructive sinus disease. No extracranial soft tissuefindings. IMPRESSION: 1. Stable cavernomas within the left frontal operculum, right basalfrontal region and brainstem. No evidence of enlargement/intervalrebleeding. 2. No acute ischemia. No other interval change. Dictated by Audie Giordano MD @ 12/06/2023 10:45:14 AM (Electronically Signed) Analy Hillman NP MR * PATH TISSUE EXAM (11/29/2023 2:51 PM CDT) Case Report Pathology Report ?Case: [id number] ? Authorizing Provider: ??eJn Matamoros MD ??Collected: ? 11/29/2023 1451 ? Ordering Location: ? [facility] ?? Received: ?11/29/2023 1512 ? Clinic ? Pathologist: ? Citlaly Iqbal MD ? Specimen: ?Jaw, left jaw lesion-stitch at 3 oclock or posterior ? 12/02/2023 9:06 AM [facility] [employer] LABORATORY-C ENTRAL LABORATORY Final Diagnosis A) SKIN, LEFT JAW, EXCISION: 1. Intradermal nevus 2. Negative for malignancy 12/02/2023 9:06 AM [facility]-C ENTRAL LABORATORY Comment A) Incomplete sampling of melanocytic proliferations may impair accurate diagnosis. Clinical correlation with the overall size of the lesion, and presence of remaining or recurring pigment, is required for optimal treatment. 12/02/2023 9:06 AM [facility] Clinical Information Left jaw skin lesion; 5 mm slightly raised pigmented lesion with gate attendant colored center. 12/02/2023 9:06 AM [facility] [employer] [facility]-C ENTRAL LABORATORY Gross Description A) Received in [...] 9:00 EVM 11/30/2023 12/02/2023 9:06 AM CDT [facility] Microscopic Description The final diagnosis is based on microscopic examination of appropriate sections of all specimens. 12/02/2023 9:06 AM CDT [facility] Additional Information Interpreted at [facility] [place] [facility] - [address] [place] [address] [address], [place] [address] 12/02/2023 9:06 AM CDT [facility] Other (Jaw) Non-Blood / Unknown 11/29/2023 2:51 PM CDT 11/29/2023 3:12 PM CDT Jen Matamoros MD PATHOLOGY/CYTOLO GY Performing Organization Address City/State/[facility] Co de Phone Number [facility] [address] [place] [address], * SHAFT TENDER THIN PREP PAP SCREEN IMAGED [[id number]] (06/10/2021 11:30 AM HOME RESTORATION SERVICE SUPERVISOR) Case Report Gynecologic Cytology Report ? Case: [id number] ? Authorizing Provider: ??Xiomy Bland MD ? Collected: ? 06/10/2021 1130 ? Ordering Location: ? [facility] ?? Received: ?06/10/2021 1216 ? Clinic ? First Screen: ?Edgard Pinzon ? Specimen: ?SHAFT TENDER ThinPrep Vial Screening, Cervical ? 06/26/2021 1:06 PM [facility] ENTRMS LABORATORY INTERPRETATION/ RESULT NEGATIVE FOR INTRAEPITHELIAL LESION OR MALIGNANCY (NIL) (none) 06/26/2021 1:06 PM [facility] IMEN ADEQUACY Satisfactory for evaluation Endocervical component present 06/26/2021 1:06 PM [facility] ENTRAL LABORATORY HPV REQUEST HPV and PAP 06/26/2021 1:06 PM HOME RESTORATION SERVICE SUPERVISOR [facility] ENTRAL LABORATORY Date of LMP 05/15/2021 06/26/2021 1:06 PM [facility] ENTRAL LABORATORY Last Pap Date 06/03/17 06/26/2021 1:06 PM [facility] ENTRAL LAB[facility] Last Pap Result NIL 1:06 PM HOME RESTORATION SERVICE SUPERVISOR [facility] ENTRAL LABORATORY Abnormal Pap or [place] Bx in last 5 years No 06/26/2021 1:06 PM [facility] ENTRAL LAB[facility]ATORY Menstrual Status Regular Periods 06/26/2021 1:06 PM HOME RESTORATION SERVICE SUPERVISOR [facility] ENTRAL LABORATORY [place] Bx Done Today No 06/26/2021 1:06 PM [facility] Additional Information None given 06/26/2021 1:06 PM [facility] ENTRAL LABORATORY Comment: Cytology is screened at [facility] - [address], [place] [address] and [facility] [place] [facility] - [address] [place] [address], [place] [address] and [facility] - [address] [place] [address] Interpreted at [facility] - [address], [place] [address] Automated Review Successful 06/26/2021 1:06 PM HOME RESTORATION SERVICE SUPERVISOR [facility] ENTRAL LABORATORY Comment:Specimen processed s uccessfully by automated project internship device, ThinPrep Imaging System, [employer] ANCILLARY TESTING SHAFT TENDER HPV Ordered, Please see separate report 06/26/2021 1:06 PM HOME RESTORATION SERVICE SUPERVISOR [facility] ENTRMS LABORATORY Note The pap test is a screening technique, not a diagnostic procedure. It is used primarily to screen for squamous cancers and precursor lesions. Published studies have shown that it is subject to both false negative and false positive results. The pap test should not be used as the sole means to diagnose or exclude pre-malignant and malignant lesions. 06/26/2021 1:06 PM HOME RESTORATION SERVICE SUPERVISOR [facility] ENTRAL LABORATORY Other (Cervical) Non-Blood / Unknown 06/10/2021 11:30 AM HOME RESTORATION SERVICE SUPERVISOR 06/10/2021 12:16 PM HOME RESTORATION SERVICE SUPERVISOR Xiomy Bland MD PATHOLOGY/CY[facility]Y [facility] [address] [place] [address], [place] * ANTI HCV (08/17/2019 9:39 AM HOME RESTORATION SERVICE SUPERVISOR) HEPATITIS C ANTIBODY Non-React usha Non-React usha 08/18/2019 12:13 AM HOME RESTORATION SERVICE SUPERVISOR [facility] Comment:Antibodies to HCV no t detected; does not exclude the possibility of exposure to HCV. Blood BLOOD SPECIMEN / Unknown Venipuncture / Unknown 08/17/2019 9:39 AM HOME RESTORATION SERVICE SUPERVISOR 08/17/2019 9:39 AM HOME RESTORATION SERVICE SUPERVISOR Merlene MCDONNELL SEND OUTS [facility] LAB[facility]AT[facility] [address] [place] [address], * ANTI HIV 1/2 (08/17/2019 9:39 AM HOME RESTORATION SERVICE SUPERVISOR) HIV-1/HIV-2 ANTIBODY Non-Reacti ve Non-Reacti ve 08/18/2019 12:25 AM HOME RESTORATION SERVICE SUPERVISOR [facility] [employer] LAB[facility]ATORY-[facility] TR[facility] LABORAT[facility] Comment:HIV-1 p24 and HIV-1/ HIV-2 Ab not detected. Blood BLOOD SPECIMEN / Unknown Venipuncture / Unknown 08/17/2019 9:39 AM HOME RESTORATION SERVICE SUPERVISOR 08/17/2019 9:39 AM HOME RESTORATION SERVICE SUPERVISOR Merlene MCDONNELL [facility] [address] [place] [address], from Last 3 Months or Most Recently [...] Discussion: Per Advance Care Plan Care Teams Signal Mechanic Relationship Specialty Start Date End Date Nela Stanley MD [address] [place] [address] PCP - General 01/14/06
[2023-12-19 01:54] LABS: Basophils Absolute Auto 0.03 K/uL (0.00-0.30); Basophils Percent Auto 0.3 % (0.0-3.0); Eosinophils Absolute Auto 0.19 K/uL (0.00-0.50); Eosinophils Percent Auto 2.1 % (0.0-7.0); Hematocrit 42.8 % (33.0-51.0); Hemoglobin* 13.9 gm/dL (12.0-16.0); Immature Granulocytes Abs Auto 0.06 K/uL (0.00-0.30); Immature Granulocytes Pct Auto 0.6 %; Lymphocytes Absolute Auto 2.88 K/uL (0.90-2.90); Lymphocytes Percent Auto 31.2 % (20-44); Mean Corpuscular HGB Conc 33 gm/dL (32-36); Mean Corpuscular Hemoglobin 29 pg (26-34); Mean Corpuscular Volume 90 fL (80-100); Monocytes Percent Auto 7.6 % (0.0-11.0); Neutrophils Absolute Auto 5.38 K/uL (1.7-7.0); Neutrophils Percent Auto 58.2 % (42.0-72.0); Platelet Count* 315 K/uL (140-440); RDW Coefficient of Variation % 12.5 % (11.5-15.5); Red Blood Count 4.77 m/uL (4.00-5.20); White Blood Count* 9.24 K/uL (4.50-11.00)
[2023-12-19 01:57] LABS: Slide Review Reflex No
[2023-12-19 02:06] LABS: Albumin* 4.5 g/dL (3.3-5.0); Chloride* 105 mmol/L (96-114)
[2023-12-19 02:07] LABS: Potassium* 3.5 mmol/L (3.6-5.1); Sodium* 138 mmol/L (135-149)
[2023-12-19 02:09] LABS: Alkaline Phosphatase* 87 U/L (40-150); Anion Gap 6 mEq/L (7-15); Aspartate Amino Transferase* 38 U/L (12-35); Bilirubin Total* 0.6 mg/dL (0.1-1.5); Carbon Dioxide* 27 mmol/L (20-32); Creatinine* 0.6 mg/dL (0.5-1.5); Est. Creatinine Clearance* 98.75; Estimated Glomerular Filt Rate 120 ml/min; Total Protein* 7.5 g/dL (6.0-8.3)
[2023-12-19 02:10] LABS: Alanine Aminotransferase* 28 U/L (4-35); Blood Urea Nitrogen* 8 mg/dL (5-24); Calcium* 8.6 mg/dL (8.4-10.6); Glucose* 105 mg/dL (60-115)
[2023-12-19 02:11] LABS: Acetaminophen* < 10.0 ug/mL (10.0-30.0); Ethanol* < 0.01 % (0.01-0.03); Salicylate* < 1.0 mg/dL (1.0-10)
[2023-12-19 02:30] LABS: PCR FLU A Negative PCR FLU A (Negative); PCR FLU B Negative PCR FLU B (Negative); PCR RSV Negative PCR RSV (Negative); SARS PCR* Negative SARS-CoV-2 (Negative)
[2023-12-19] MEDS: diazePAM 5 MG/ML inj 2.5 MG IV (03:07)
[2023-12-19] MEDS: POTASSIUM BICARB 25 MEQ EFFERVESCENT TAB PO (08:00)
--- NOTE | 2023-12-19 08:24 | ED.NURSE ---
pt provided with breakfast tray
[2023-12-19 08:27] LABS: Magnesium* 2.2 mg/dL (1.5-2.6)
--- NOTE | 2023-12-19 14:28 | PC.SOCIAL ---
Social work: Mental health assessment completed with pt. Per MD order for in-pt mental health placement, called [facility] mental health services and faxed information for evaluation for in-pt placement at [place] or [place]. Leeanna call back with decision on admit. dust box worker to follow up as needed.
[2023-12-19] MEDS: ACETAMINOPHEN 500 MG TABLET 1000 MG PO (15:03)
== END 2023-12-19 19:20 | disposition short-term general hospital (02) ==
PROVIDERS: Emergency Provider Family Medicine; PCP Family Medicine
DX: T43.222A Poisoning by selective serotonin reuptake inhibitors, intentional self-harm, initial encounter (principal)
CPT/HCPCS: 36415; 80053; 80143; 80179; 80306; 82077; 83735; 84132; 84703; 85025; 87631; 93005; 94761; 96365; 96375; 99285; A9270; J3360; J3475

== ENCOUNTER 2023-12-19 19:24 | Outpatient (CLI) | payer BC, SELFPAY ==
--- OUTSIDE RECORDS SUMMARY | 2023-12-25 22:15 | XMS_ITS | Clinical Summary ---
Author Organization [employer] [facility] [employer] [facility] Address [place], [place] [address] Care Team Providers Care Customer Experience Strategist Name Role Phone Nela Stanley MD Primary [...] Nausea/Vomiting. 20 Tablet 2 07/15/19 24 Active escitalopram oxalate (LEXAPRO) 10 mg tabletIndications: Major depressive disorder, recurrent episode, moderate (HC) Take 1 Tablet (10 mg) by mouth once daily in the morning. 30 Tablet 12/22/19 24 Active sertraline (ZOLOFT) 50 mg tabletIndications: [...] 024 Discontinued(*P atient states no longer taking) sertraline (ZOLOFT) 50 mg tabletIndications: Obsessive-compulsi ve disorder, unspecified type TAKE ONE TABLET BY MOUTH EVERY MORNING 90 Tablet 3 11/27/19 24 024 Discontinued(*P atient states no longer taking) citalopram (CELEXA) 10 mg tabletIndications: Obsessive-compulsi ve disorder, unspecified type,Anxiety Take 1 Tablet (10 mg) by mouth once daily in the morning. 60 Tablet 2 12/08/19 24 024 Discontinued(*I P Discontinued) Active Problems Problem Noted Date Diagnosed Date Adjustment disorder with depressed mood 12/20/19 Pap smear for cervical cancer screening 05/20/20 [...] Surgical History: . Laterality Date ? ? [place] MENISCAL TRNSPL KNEE WITH SCOPE No data on file. Problems (from 08/17/19 to present) No problems associated with this episode. Ginna Gibbons, MILES.....11/19/2019 9:47 AM Gallbladder pain 11/02/2019 04/30/2020 Common [...] Surgical History: Procedure Laterality Date ? ? AZ MENISCAL TRNSPL KNEE WITH SCOPE No data [...] Surgical History: Procedure Laterality Date ? ? AZ MENISCAL TRNSPL KNEE WITH SCOPE No data [...] Surgical History: Procedure Laterality Date ? ? [place] MENISCAL TRNSPL KNEE WITH SCOPE No data on file. 2nd Problems (from 10/20/17 to present) No problems associated with this episode. MILES Coelho.....12/05/2017 7:39 AM Encounter for IUD removal 11/16/2013 High-risk 09/24/2010 11/09/19 15 Ingrowing nail 09/19/2008 02/02/2011 Other convulsions 10/28/2017 Articular cartilage disorder , site unspecified 06/14/2008 Encounters Date Type Department Care Team Description 12/23/2023 Patient Outreach [facility] [address] [place] [address] Dipika Bond, RN Primary RN Care Management; Hospital F/U (Lace 11) 12/19/2023 8:02 PM CDT - 12/21/2023 4:30 PM CDT Hospital Encounter [facility] [address] [place] [address] Antonio Meza, Fausto Finch MD Major depressive disorder, recurrent episode, moderate (HC) (Primary Dx) Discharge Disposition: Home Self Care 12/19/2023 Travel 12/14/2023 10:00 AM CDT Office Visit [facility] [address] [place] [address] Desiree Morton, [facility] Visit 12/14/2023 Travel 12/12/2023 [facility]phone [facility] [address] [address] Alverto Joseph MD Appointment 12/08/2023 9:05 AM CDT Office Visit [facility] [address] [place] [address] Nela Stanley MD ER Follow up (Took 10, 50 mg sertraline yesterday. Went to the ER. States she was not out to hurt herself, was just very upset./Has not been taking regularly. Does not think it is working, has been on for a long time/Would like to switch medication) 12/08/2023 Travel 12/05/2023 4:15 PM CDT Ancillary Procedure [facility] [address] [place] [address] 12/05/2023 Travel 11/29/2023 2:15 PM CDT Office Visit [facility] [address] [place] [address] Jen Matamoros MD Consult (Facial mole change) 11/29/2023 Travel 11/25/2023 Refill [facility] [address] [place] [address] Nela Stanley MD Refill Request (Sertraline) from Last 3 Months Immunizations Name Administration Dates Next Due AMB Influenza, IIV4 PF (=>6 mos Flulaval,Fluzone Fluarix)(Flu Clinic Only) 04/05/2019 COVID-19 vaccine (Compassoft-Bio NTech 30mcg/0.3mL) 12YO+ BIVALENT PF, MDV 05/04/2022 COVID-19 vaccine (Compassoft-Bio NTech 30mcg/0.3mL) PF, MDV 06/16/2021,04/22/2021 DTaP 01/11/1994,199 0,1988,07/20,1988 HIB PRP-D (ProHIBIT) 03/22/1990 Hep B [...] Answer Date Recorded PHQ-2 TOTAL SCORE 0 12/21/2023 Social Connections Answer Date Recorded Frequency of Communication with Friends and Fami ly 0 09/23/2023 Alcohol Use Answer Date Recorded How often do you have a drink containing alcohol ? 1 12/19/2023 How many drinks containing a lcohol do you have on a typical day when you are drinking? 0 12/19/2023 How often do you have five or more drinks on one occasion? 0 12/19/2023 Financial Resource Strain Answer Date R ecorded [...] Sign Reading Time Taken Comments Blood Pressure 113/61 12/21/2023 7:00 AM CDT Pulse 78 12/21/2023 7:00 AM CDT Temperature 36.6 ??C (97.9 ??F) 12/21/2023 7:00 AM CD T Respiratory Rate 16 12/21/2023 7:00 AM CDT Oxygen Saturation 99% 12/21/2023 7:00 AM CDT Inhaled Oxygen Concentration - - Weight 95.8 kg (211 lb 1.6 oz) 12/08/2023 9:14 A M CDT Height 156.2 cm (5' 1.5) 12/08/2023 9:14 AM CDT Body Mass Index 39.24 12/08/2023 9:14 AM CDT Plan of Treatment Upcoming Encounters Date Type Department Care Team (Late st Contact Info) Description 12/28/2023 10:00 AM CDT Office Visit [facility] [address] [place] [address] Desiree Morton, [facility] [address] [facility] [address] Health Maintenance Due Date Last Done Comments COVID-19 vaccine series ( season) 2023 05/04/2022, 06/16/2021, 04/22/2021, Additional history exists Influenza for age 9-49 02/19/2024 , 03/11/2022, 04/16/2021, Additional history exists BMI (ht and wt on same day) for age 18+ 12/07/2024 12/08/2023, 03/25/2022, 07/07/2021, Additional history exists Depression screening for age 12+ 12/20/2024 12/21/2023, 12/19/2023, 12/14/2023, Additional history exists Pap test for age [...] Procedure Name Priority Date/Time Associated Diagnosis Comments DRUG SCREEN RAPID URINE INHOUSE Today 12/20/2023 7:58 AM CDT URINE Today 12/20/2023 7:58 AM CDT HEPATIC FUNCTION PANEL Early AM 12/20/2023 6:05 AM CDT LIPID PANEL Early AM 12/20/2023 6:05 AM CDT FOLIC ACID Timed 12/20/2023 6:05 AM CDT VITAMIN B12 Early AM 12/20/2023 6:05 AM CDT TSH Early AM 12/20/2023 6:05 AM CDT BASIC METABOLIC PANEL Early AM 12/20/2023 6:05 AM CDT CBC WITH AUTO DIFFERENTIAL Early AM 12/20/2023 6:04 AM CDT HEMOGLOBIN A1C SCREENING Early AM 12/20/2023 6:04 AM CDT CBC WITH AUTO DIFFERENTIAL Early AM 12/20/2023 6:04 AM CDT EKG 12 LEAD Routine 12/19/2023 9:40 PM CDT MR HEAD BRAIN WWO Routine 12/05/2023 4:3 6 PM CDT Familial cavernous cerebral angioma (HC) PATH TISSUE EXAM Routine 11/29/2023 2:51 PM CDT Change in facial mole METAL SPRAYER MACHINED PARTS THIN PREP PAP SCREEN IMAGED Routine 06/10/2021 11:30 AM CALL OR CONTACT CENTRE MANAGER Screening for cervical cancer ANTI HIV 1/2 Routine 08/17/2019 9:39 AM CALL OR CONTACT CENTRE MANAGER Encounter for supervision of normal first in first trimester ANTI HCV Routine 08/17/2019 9:39 AM CALL OR CONTACT CENTRE MANAGER Encounter for supervision of normal first in first trimester from Last 3 Months or Most Recently Relevant to Health Maintenance Results * (ABNORMAL) DRUG SCREEN RAPID URINE INHOUSE (12/20/2023 7:58 AM CDT) [facility] THC METABOLITES,DMITRIY L Not Detected Not Detected 12/20/2023 8:[address] [facility] PCP,QUAL Not Detected Not Detected 12/20/2023 8:[address] [facility] COCAINE,QUAL Not Detected Not Detected 12/20/19 8:[address] [facility] METHAMPHETAMINE , QUALITATIVE Not Detected Not Detected 12/20/2023 8:[address] [facility] OPIATES,QUAL Not Detected Not Detected 12/20/19 8:[address] [facility] AMPHETAMINE, QUALITATIVE Not Detected Not Detected 12/20/2023 8:[address] [facility] BENZODIAZEPINES ,QUAL Non-negative , consider further testing if indicated(A) Not Detected 12/20/2023 8:[address] [facility] TRICYCLICS,QUAL Not Detected Not Detected 12/19 8:[address] [facility] METHADONE, QUALITATIVE Not Detected Not Detected 12/20/2023 8:[address] [facility] BARBITURATES,QU AL Not Detected Not Detected 12/20/2023 8:[address] [facility] OXYCODONE, QUALITATIVE Not Detected Not Detected 12/20/2023 8:[address] [facility] BUPRENORPHINE, QUALITATIVE Not Detected Not Detected 12/20/2023 8:[address] [facility] Urine URINE SPECIMEN / Unknown Non-Blood / Unknown 12/20/2023 7:58 AM CDT 12/20/2023 8:[address] [facility] - 12/20/2023 8:15 AM T Please Note: ?? This is a screening test only, all results are unconfirmed and should be used for medical purposes only. ??Unconfirmed results must not be used for non-medical purposes (e.g., employment testing, legal testing). ??Suggest analyte specific confirmation for all non-negative results. ??Specimens will be held for 24 hours if additional testing is needed. ?? The following threshold concentrations are used for this analysis: ? Drug ? Screening Threshold ? Buprenorphine ? 10 ng/mL PCP ? 25 ng/mL ?? THC Metabolites ? 50 ng/mL *Opiates ? 100 ng/mL Oxycodone ?100 ng/mL Cocaine ?150 ng/mL Benzodiazepines ?150 ng/mL ?? Methadone ?200 ng/mL ?? Barbiturates ? 200 ng/mL Tricyclic Antidepressants ?300 ng/mL ?? Amphetamines ? 500 ng/mL ?? Methamphetamines ? 500 ng/mL ?*Includes related compounds: ? Codeine ?50 ng/mL ? Heroin ?100 ng/mL ? Morphine ?100 ng/mL ? Hydrocodone ? 400 ng/mL ? Hydromorphone ? 800 ng/mL ?Venlafaxine (Effexor) is a known cross reactant in the PCP ?assay. ??If clinically indicated, order PCP confirmation. Fausto Meza MD URINE Performing Organization Address [facility] de Phone Number [address] [address] * URINE (12/20/2023 7:58 AM CDT) ,URIN E Negative Negative 12/20/2023 8:07 AM CDT [facility] Urine URINE SPECIMEN / Unknown Non-Blood / Unknown 12/20/2023 7:58 AM CDT 12/20/2023 8:02 AM CDT Fausto Meza MD URINE Performing Organization Address [facility] de Phone Number [place] [phone] [address] * TSH (12/20/2023 6:05 AM CDT) Pathologist [facility] TSH 1.31 0.27 - 4.20 uIU/mL 12/20/2023 6:42 AM CDT [facility] Blood BLOOD SPECIMEN / Unknown Venipuncture / Unknown 12/20/2023 6:05 AM CDT 12/20/2023 6:11 AM CDT [facility] - 12/20/2023 6:42 AM CDT In Adults, TSH values between 5.00 and 10.00 uIU/ml do not necessarily indicate the presence of Hypothyroidism. Correlation with clinical findings such as presence of goiter and/or Thyroperoxidase (TPO) Antibody may be helpful. For more information please refer to MARCOS 2004; 291: 228-238. Fausto Meza MD CHEMISTRY Performing Organization Address [facility] Co de Phone Number [facility] [address] [address] * FOLIC ACID (12/20/2023 6:05 AM CDT) FOLIC ACID 15.3 4.6 - 34.8 ng/mL 12/21/2023 6:50 AM CDT [facility] Blood BLOOD SPECIMEN / Unknown Venipuncture / Unknown 12/20/2023 6:05 AM CDT 12/20/2023 6:11 AM CDT Narrative [facility] - 12/21/2023 6:50 AM CDT Biotin supplements may cause clinically significant interference for this test assay. ??If interference is suspected, it is strongly recommended that biotin is discontinued for at least one week prior to retesting. Fausto Meza MD CHEMISTRY Performing Organization Address [facility] Co de Phone Number [facility] [address] [place] [address], * VITAMIN B12 (12/20/2023 6:05 AM CDT) VITAMIN B12 485 232 - 1,245 pg/mL 12/21/2023 6:12 AM CDT [facility] Blood BLOOD SPECIMEN / Unknown Venipuncture / Unknown 12/20/2023 6:05 AM CDT 12/20/2023 6:[address] [facility] - 12/21/2023 6:12 AM CDT Biotin supplements may cause clinically significant interference for this test assay. ??If interference is suspected, it is strongly recommended that biotin is discontinued for at least one week prior to retesting. Fausto Meza MD CHEMISTRY Performing Organization Address City/[facility] Co de Phone Number [facility] [address] [place] [address], * HEPATIC FUNCTION PANEL (12/20/2023 6:05 AM CDT) ALBUMIN 4.0 4.0 - 4.9 g/dL 12/20/2023 6:42 AM T [facility] PROTEIN,TOTAL 6.9 6.0 - 8.0 g/dL 12/20/2023 6:42 AM T [facility] BILIRUBIN,TOTAL 0.5 0.0 - 1.2 mg/dL 12/20/2023 6:42 AM T [facility] BILIRUBIN,DIRECT <0.2 0.0 - 0.3 mg/dL 12/20/2023 6:42 AM T [facility] BILIRUBIN,INDIRE CT 12/20/2023 6:42 AM T [facility] Comment:Unable to calculate, Direct Bili <0.2 ALK PHOSPHATASE 75 35 - 104 IU/L 12/20/2023 6:[address] [facility] ALT (SGPT) 18 10 - 35 IU/L 12/20/2023 6:[address] [facility] AST (SGOT) 25 10 - 35 IU/L 12/20/2023 6:[address] [facility] Blood BLOOD SPECIMEN / Unknown Venipuncture / Unknown 12/20/2023 6:05 AM CDT 12/20/2023 6:11 AM T Fausto Meza MD CHEMISTRY Performing Organization Address City/State/[facility] Co de Phone Number [facility] [address] [address] * LIPID PANEL (12/20/2023 6:05 AM CDT) CHOLESTEROL,TOTAL 168 100 - 199 mg/dL 12/21/2023 6:12 AM T [facility] Comment: Cholesterol, Total Reference Ranges Desirable <200 mg/dL Borderline 200-239 mg/dL High >=240 mg/dL TRIGLYCERIDES 74 <150 mg/dL 12/21/2023 6:12 AM CDT [facility] LABORAT[facility] HDL CHOLESTEROL 46 >40 mg/dL 6:12 AM T [facility] TRAL LABORATORY NON-HDL CHOLESTEROL 122 <145 mg/dl 12/21/2023 6:12 AM CDT [facility] TRAL LABORATORY CHOL/HDL RATIO 3.65 <4.50 12/21/2023 6:12 AM T [facility] TRAL LABORATORY LDL CHOLESTEROL 107 <=130 mg/dL 12/21/2023 6:12 AM T [facility] TRAL LABORATORY VLDL CHOLESTEROL 15 <=30 mg/dL 12/21/2023 6:12 AM T [facility] TRAL LABORATORY PROVIDER ORDERED STATUS RANDOM 12/21/2023 6:[address] [facility] Blood BLOOD SPECIMEN / Unknown Venipuncture / Unknown 12/20/2023 6:05 AM CDT 12/20/2023 6:11 AM CDT Fausto Meza MD CHEMISTRY [facility] [address] [address], [facility] [address] [address] * BASIC METABOLIC PANEL (12/20/2023 6:05 AM CDT) SODIUM 140 136 - 145 mmol/L 12/20/2023 6:[address] [facility] POTASSIUM 4.2 3.5 - 5.1 mmol/L 12/20/2023 6:[address] [facility] CHLORIDE 105 98 - 107 mmol/L 12/20/2023 6:[address] [facility] CO2,TOTAL 27 22 - 29 mmol/L 12/20/2023 6:[address] [facility] ANION GAP 8 5 - 18 12/20/2023 6:[address] [facility] GLUCOSE 91 70 - 99 mg/dL 12/20/2023 6:[address] [facility] CALCIUM 8.7 8.6 - 10.0 mg/dL 12/20/2023 6:[address] [facility] BUN 8 6 - 20 mg/dL 12/20/2023 6:[address] [facility] CREATININE 0.65 0.50 - 0.90 mg/dL 12/20/2023 6:[address] [facility] BUN/CREAT RATIO 12 10 - 20 6:[address] [facility] eGFR >90 >90 mL/min/1.7 3m2 12/20/2023 6:[address] [facility] Comment:As of 2021, eG FR is calculated by the CKD-EPI creatinine equation without race adjustment. ??eGFR can be influenced by muscle mass, exercise, and diet. ??The reported eGFR is an estimation only and is only applicable if the renal function is stable. Blood BLOOD SPECIMEN / Unknown Venipuncture / Unknown 12/20/2023 6:05 AM CDT 12/20/2023 6:11 AM T Fausto Meza MD CHEMISTRY [facility] [address] [address] * CBC WITH AUTO DIFFERENTIAL (12/20/2023 6:04 AM T) WHITE BLOOD COUNT 10.0 4.5 - 11.0 thou/cu mm 12/20/2023 6:[address] [facility] RED BLOOD COUNT 4.59 4.00 - 5.20 mil/cu mm 12/20/2023 6:[address] [facility] HEMOGLOBIN 13.4 12.0 - 16.0 g/dL 12/20/2023 6:[address] [facility] HEMATOCRIT 41.6 33.0 - 51.0 % 12/20/2023 6:[address] [facility] MCV 91 80 - 100 fL 12/20/2023 6:[address] [facility] MCH 29.2 26.0 - 34.0 pg 12/20/2023 6:[address] [facility] MCHC 32.2 32.0 - 36.0 g/dL 12/20/2023 6:[address] [facility] RDW 13.2 11.5 - 15.5 % 12/20/2023 6:[address] [facility] PLATELET COUNT 307 140 - 440 thou/cu mm 12/20/2023 6:[address] [facility] MPV 9.1 6.5 - 11.0 fL 12/20/2023 6:[address] [facility] % NEUT 69.6 % 12/20/2023 6:[address] [facility] % LYMPH 21.3 % 12/20/2023 6:[address] [facility] % MONO 7.7 % 12/20/2023 6:[address] [facility] % EOS 1.1 % 12/20/2023 6:[address] [facility] % BASO 0.3 % 12/20/2023 6:[address] [facility] ABSOLUTE NEUTROPHILS 7.0 1.7 - 7.0 thou/cu mm 12/20/2023 6:[address] [facility] ABSOLUTE LYMPHOCYTES 2.1 0.9 - 2.9 thou/cu mm 12/20/2023 6:[address] [facility] ABSOLUTE MONOCYTES 0.8 <0.9 thou/cu mm 12/20/2023 6:[address] [facility] ABSOLUTE EOSINOPHILS 0.1 <0.5 thou/cu mm 12/20/2023 6:[address] [facility] ABSOLUTE BASOPHILS 0.0 <0.3 thou/cu mm 12/20/2023 6:[address] [facility] Blood BLOOD SPECIMEN / Unknown Venipuncture / Unknown 12/20/2023 6:04 AM CDT 12/20/2023 6:11 AM CDT Fausto Meza MD HEMATOLOGY [facility] [address] [address] * HEMOGLOBIN A1C SCREENING (12/20/2023 6:04 AM CDT) HEMOGLOBIN A1C SCREENING 5.0 <=6.4 % 12/22/2023 10:36 AM CDT [facility] Blood BLOOD SPECIMEN / Unknown Venipuncture / Unknown 12/20/2023 6:04 AM CDT 12/20/2023 6:11 AM CDT Narrative [facility] - 12/22/2023 10:36 AM CDT ? (<5.7%) ?Normal ? (5.7% to 6.4%) ? Indicates prediabetes ? (>=6.5%) ? Confirms diabetes Falsely low levels may be seen with: Recent Transfusion, Recent Significant Blood Loss, Hemolytic Diseases, or Falsely elevated levels may be seen with: Untreated Anemias, Splenectomy Fausto Meza MD CHEMISTRY Performing Organization Address City/[facility] Co de Phone Number [facility] [address] [place] [address], * EKG 12 LEAD (12/19/2023 9:40 PM CDT) Interpretation Normal sinus rhythm Normal ECG No previous ECGs available BEYOND NOW Ventricular Rate 74 BPM BEYOND NOW Atrial Rate 74 BPM BEYOND NOW P-R Interval 158 ms BEYOND NOW QRS Duration 78 ms BEYOND NOW QT 412 ms BEYOND NOW QTc 457 ms BEYOND NOW P [place] 36 degrees BEYOND NOW R [place] -15 degrees BEYOND NOW T [place] 13 degrees BEYOND NOW 12/19/2023 9:40 PM CDT 12/20/2023 12:49 PM CDT Fausto Meza MD EKG ORD Performing Organization Address City/State/[facility] Co de Phone Number BEYOND NOW [place], [place] * MR HEAD BRAIN WWO (12/05/2023 4:36 [...] @ 12/06/2023 10:45:14 AM (Electronically Signed) Analy Avendaño Rafy SENIOR FORMULATION SCIENTIST MR * PATH TISSUE EXAM (11/29/2023 2:51 PM CDT) Case Report Pathology Report ?Case: [id number] ? Authorizing Provider: ??Jen Matamoros MD ??Collected: ? 11/29/2023 1451 ? Ordering Location: ? [facility] ?? Received: ?11/29/2023 1512 ? Clinic ? Pathologist: ? Citlaly Iqbal MD ? Specimen: ?Jaw, left jaw lesion-stitch at 3 oclock or posterior ? 12/02/2023 9:06 AM [facility] ENTRAL LABORATORY Final Diagnosis A) SKIN, LEFT JAW, EXCISION: 1. Intradermal nevus 2. Negative for malignancy 12/02/2023 9:06 AM [facility] Comment A) Incomplete sampling of melanocytic proliferations may impair accurate diagnosis. Clinical correlation with the overall size of the lesion, and presence of remaining or recurring pigment, is required for optimal treatment. 12/02/2023 9:06 AM [facility] Clinical Information Left jaw skin lesion; 5 mm slightly raised pigmented lesion with shield cleaner colored center. 12/02/2023 9:06 AM [facility] ENTRAL LAB[facility]ATORY Gross Description A) Received in [...] to 9:00 EVM 11/30/2023 12/02/2023 9:06 AM [facility] Microscopic Description The final diagnosis is based on microscopic examination of appropriate sections of all specimens. 12/02/2023 9:06 AM [facility] ENTRAL LABORATORY Additional Information Interpreted at [facility], Central Laboratory - [address], [place] [address] 12/02/2023 9:06 AM CDT [facility]AL LAB[facility] Other (Jaw) Non-Blood / Unknown 11/29/2023 2:51 PM CDT 11/29/2023 3:12 PM CDT Jen Matamoros MD PATHOLOGY/CYTOLO [facility] LABORAT[facility]-CENTRAL LABORATORY [address] [place] [address], * METAL SPRAYER MACHINED PARTS THIN PREP PAP SCREEN IMAGED [[id number]] (06/10/2021 11:30 AM CALL OR CONTACT CENTRE MANAGER) Case Report Gynecologic Cytology Report ? Case: [id number] ? Authorizing Provider: ??Xiomy Bland MD ? Collected: ? 06/10/2021 1130 ? Ordering Location: ? [facility] ?? Received: ?06/10/2021 1216 ? Clinic ? First Screen: ?[place], Xon Izaiah ? Specimen: ?METAL SPRAYER MACHINED PARTS ThinPrep Vial Screening, Cervical ? 06/26/2021 1:06 PM [facility]- ENTRAL LABORATORY INTERPRETATION/ RESULT NEGATIVE FOR INTRAEPITHELIAL LESION OR MALIGNANCY (NIL) (none) 06/26/2021 1:06 PM CALL OR CONTACT CENTRE MANAGER [facility] ENTRSC LABORATORY IMEN ADEQUACY Satisfactory for evaluation Endocervical component present 06/26/2021 1:06 PM CALL OR CONTACT CENTRE MANAGER [facility] ENTRAL LABORATORY HPV REQUEST HPV and PAP 06/26/2021 1:06 PM CALL OR CONTACT CENTRE MANAGER [facility] ENTRAL LAB[facility]ATORY Date of LMP 05/15/2021 06/26/2021 1:06 PM CALL OR CONTACT CENTRE MANAGER [facility] EN[facility]AL LAB[facility]ATORY Last Pap Date 06/03/17 06/26/2021 1:06 PM CALL OR CONTACT CENTRE MANAGER [facility] EN[facility] LAB[facility] Last Pap Result NIL 1:06 PM CALL OR CONTACT CENTRE MANAGER [facility] ENTRAL LABORATORY Abnormal Pap or [place] Bx in last 5 years No 06/26/2021 1:06 PM CALL OR CONTACT CENTRE MANAGER [facility] ENTRAL LAB[facility]ATORY Menstrual Status Regular Periods 06/26/2021 1:06 PM CALL OR CONTACT CENTRE MANAGER [facility] ENTRAL LABORATORY [place] Bx Done Today No 06/26/2021 1:06 PM CALL OR CONTACT CENTRE MANAGER [facility] EN[facility]AL LAB[facility]ATORY Additional Information None given 06/26/2021 1:06 PM CALL OR CONTACT CENTRE MANAGER [facility] ENTRAL LAB[facility]ATORY Comment: Cytology is screened at [facility], Central Laboratory - [address], [place] [address] and [facility] - [address], [place] [address] and [facility] - [address] [place] [address] Interpreted at [facility] Central Laboratory - [address], [place] [address] Automated Review Successful 06/26/2021 1:06 PM CALL OR CONTACT CENTRE MANAGER [facility] ENTRAL LABORATORY Comment:Specimen processed s uccessfully by automated bariatric physician device, ThinPrep Imaging System, [employer] ANCILLARY TESTING METAL SPRAYER MACHINED PARTS HPV Ordered, Please see separate report 06/26/2021 1:06 PM CALL OR CONTACT CENTRE MANAGER [facility] Note The pap test is a screening technique, not a diagnostic procedure. It is used primarily to screen for squamous cancers and precursor lesions. Published studies have shown that it is subject to both false negative and false positive results. The pap test should not be used as the sole means to diagnose or exclude pre-malignant and malignant lesions. 06/26/2021 1:06 PM [facility] Other (Cervical) Non-Blood / Unknown 06/10/2021 11:30 AM CALL OR CONTACT CENTRE MANAGER 06/10/2021 12:16 PM CALL OR CONTACT CENTRE MANAGER Xiomy Bland MD PATHOLOGY/CYTOLOGY Performing Organization Address [facility]/ZIP Co de Phone Number [facility] [address] [place] [address], [place] * ANTI HCV (08/17/2019 9:39 AM CALL OR CONTACT CENTRE MANAGER) HEPATITIS C ANTIBODY Non-React usha Non-React usha 08/18/2019 12:13 AM CALL OR CONTACT CENTRE MANAGER [facility] Comment:Antibodies to HCV no t detected; does not exclude the possibility of exposure to HCV. Blood BLOOD SPECIMEN / Unknown Venipuncture / Unknown 08/17/2019 9:39 AM CALL OR CONTACT CENTRE MANAGER 08/17/2019 9:39 AM CALL OR CONTACT CENTRE MANAGER Merlene MCDONNELL SEND OUTS [facility] [address] [place] [address], [place] * ANTI HIV 1/2 (08/17/2019 9:39 AM CALL OR CONTACT CENTRE MANAGER) HIV-1/HIV-2 ANTIBODY Non-Reacti ve Non-Reacti ve 08/18/2019 12:25 AM CALL OR CONTACT CENTRE MANAGER [facility] Comment:HIV-1 p24 and HIV-1/ HIV-2 Ab not detected. Blood BLOOD SPECIMEN / Unknown Venipuncture / Unknown 08/17/2019 9:39 AM CALL OR CONTACT CENTRE MANAGER 08/17/2019 9:39 AM CALL OR CONTACT CENTRE MANAGER Merlene MCDONNELL SEND OUTS [facility] [address] [place] [address], from Last 3 Months or Most Recently Relevant to Health Maintenance Advance Directives * Full Code (Latest Code Status on File) Date Activated Date Inactivated Comments 12/19/2023 8:24 PM 12/21/2023 6:53 PM Question Answer Comments Code Status Discussion: Other * Full Code Date Activated Date Inactivated Comments 11/23/2019 7:41 AM 11/23/2019 3:42 PM * Full Code Date Activated Date Inactivated Comments 11/23/2019 7:41 AM 11/23/2019 7:41 AM * Full Code Date Activated Date Inactivated Comments 11/02/2019 6:32 AM 11/03/2019 4:15 PM Question Answer Comments Code Status Discussion: Per Advance Care Plan Care Teams Customer Experience Strategist Relationship Specialty Start Date End Date Nela Stanley MD [address] [place] [address] PCP - General 01/14/06
== END 2023-12-19 19:25 | disposition home or self-care (01) ==
LOC: AMB 12-25 22:13
PROVIDERS: PCP Family Medicine; Visit Provider Family Medicine
DX: T50.902A Poisoning by unspecified drugs, medicaments and biological substances, intentional self-harm, initial encounter (principal)
CPT/HCPCS: A0425; A0427

== ENCOUNTER 2024-01-04 17:02 | Emergency (ER) | payer BC, SELFPAY ==
[2024-01-04 17:06] VITALS: BP 113/79; PULSE 82; RESP 20; TEMP 37.1; O2SAT 99; BMI 39.1
--- NOTE | 2024-01-04 17:09 | CRLHL7_ITS ---
For Patients: As a result of the Cures Act, medical imaging exams and procedure reports are released immediately into your electronic medical record. You may view this report before your referring provider. If you have questions, please contact your health care provider. Indication: TRAUMA, PAIN Technique: Three views of the left hand. Comparison: None. Findings: There is no acute displaced fracture, traumatic malalignment, or other significant abnormality. Impression: No acute displaced fracture or malalignment. Dictated by Jm Arroyo MD @ 01/04/2024 5:57:36 PM (Electronically Signed)
--- OUTSIDE RECORDS SUMMARY | 2024-01-04 17:46 | XMS_ITS | Clinical Summary ---
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 Please do not fill today. Patient will call as needed 1 Each 06/10/2021 Active nystatin powder (MYCOSTATIN) powderIndications:C andidal intertrigo Apply 1 Strip topically to affected area(s) three times daily. 60 g 06/20/2023 Active ondansetron (ZOFRAN ODT) 4 mg disintegrating tabletIndications:N ausea Place 1 Tablet (4 mg) on the tongue every 8 hours if needed for Nausea/Vomiting. 20 Tablet 2 07/15/2023 Active escitalopram oxalate (LEXAPRO) 10 mg tabletIndications:M anabelaor depressive disorder, recurrent episode, moderate (HC) Take 1 Tablet (10 mg) by mouth once daily in the morning. 30 Tablet 12/22/2023 Active fluconazole (DIFLUCAN) 150 mg tabletIndications:Y east vaginitis Take 1 Tablet (150 mg) by mouth once daily. May repeat a second dose in 1 week if symptoms persist 2 Tablet 06/02/2023 12/08/19 24 Discontinu ed(*Med complete/R egimen complete/L evel of care change) amitriptyline (ELAVIL) 10 mg tabletIndications:D aily headache TAKE ONE TABLET BY MOUTH ONCE NIGHTLY AT BEDTIME 30 Tablet 06/04/2023 12/08/19 24 Discontinu ed(*Med complete/R egimen complete/L evel of care change) triamcinolone 0.5% (ARISTOCORT) 0.5 % creamIndications:Ra sh Apply topically to affected area(s) three times daily. 15 g 1 09/23/2023 12/08/19 24 Discontinu ed(*Patien t states no longer taking) sertraline (ZOLOFT) 50 mg tabletIndications:O bsessive-compulsive disorder, unspecified type TAKE ONE TABLET BY MOUTH EVERY MORNING 90 Tablet 3 11/27/2023 12/20/19 24 Discontinu ed(*Patien t states no longer taking) citalopram (CELEXA) 10 mg tabletIndications:O bsessive-compulsive disorder, unspecified type,Anxiety Take 1 Tablet (10 mg) by mouth once daily in the morning. 60 Tablet 2 12/08/2023 12/21/19 24 Discontinu ed(*IP Discontinu ed) Active Problems Problem Noted Date Diagnosed Date Adjustment disorder with depressed mood 12/20/19 24 Pap smear for cervical cancer screening 05/20/20 [...] Encounters Date Type Department Care Team Description 01/04/2024 1:30 PM CDT Office Visit [facility] [address] [place] [address] Desiree Morton, [facility] Visit 01/04/2024 Travel 12/30/2023 Telephone [facility] [address] [place] [address] Nela Stanley MD Follow Up 12/28/2023 10:00 AM CDT Office Visit [facility] [address] [facility] [place] [address] Desiree Morton [facility] Visit 12/28/2023 Travel 12/23/2023 Patient Outreach [facility] [address] [place] [address] Dipika Bond, RN Primary RN Care Management; Hospital F/U (Lace 11) 12/19/2023 8:02 PM CDT - 12/21/2023 4:30 PM CDT Hospital Encounter [facility] [address] [place] [address] Antonio Meza, Fausto Finch MD Major depressive disorder, recurrent episode, moderate (HC) (Primary Dx) Discharge Disposition: Home Self Care 12/19/2023 Travel 12/14/2023 10:00 AM CDT Office Visit [facility] [address] [place] [address] Desiree Morton [facility] Visit 12/14/2023 Travel 12/12/2023 Telephone [facility] [address] [address] Alverto Joseph MD Appointment 12/08/2023 9:05 AM CDT Office Visit [facility] [address] [place] [address] Nela Stanley MD ER Follow up (Took 10, 50 mg sertraline yesterday. Went to the ER. States she was not out to hurt herself, was just very upset./Has not been taking regularly. Does not think it is working, has been on for a long time/Would like to switch medication) 12/08/2023 Travel 12/05/2023 4:15 PM CDT Ancillary Procedure [facility] [address] [facility] [address] 12/05/2023 Travel 11/29/2023 2:15 PM CDT Office Visit [facility] [address] [place] [address] Jen Matamoros MD Consult (Facial mole change) 11/29/2023 Travel 11/25/2023 Refill [facility] [address] [facility] [address] Nela Stanley MD Refill Request (Sertraline) from Last 3 Months Immunizations Name Administration Dates Next Due AMB Influenza, IIV4 PF (=>6 mos Flulaval,Fluzone Fluarix)(Flu Clinic Only) 04/05/2019 COVID-19 vaccine ([employer] 30mcg/0.3mL) 12YO+ BIVALENT PF, MDV 05/04/2022 COVID-19 vaccine ([employer] 30mcg/0.3mL) PF, MDV 06/16/2021,04/22/2021 DTaP 01/11/1994, [...] Care Team (Late st Contact Info) Description 01/05/2024 9:30 AM CDT Office Visit [facility] [address] [place] [address] Nela Stanley MD [address] [place] [address] 01/11/2024 9:00 AM CDT Office Visit [facility] [address] [place] [address] Desiree Morton LICSW [address] [place] [address] Health Maintenance Due Date Last Done Comments [...] 2:51 PM CDT Change in facial mole CLOTHING WORKER THIN PREP PAP SCREEN IMAGED Routine 06/10/2021 11:30 AM COMMODITY MANAGER Screening for cervical cancer ANTI HIV 1/2 Routine 08/17/2019 9:39 AM COMMODITY MANAGER Encounter for supervision of normal first in first trimester ANTI HCV Routine 08/17/2019 9:39 AM COMMODITY MANAGER Encounter for supervision of normal first in first trimester from Last 3 Months or Most Recently Relevant to Health Maintenance Results * (ABNORMAL) DRUG SCREEN RAPID URINE INHOUSE (12/20/2023 7:58 AM CDT) Pathologist [facility] THC METABOLITES,DMITRIY L Not Detected Not Detected 12/20/2023 8:15 AM [facility] PCP,QUAL Not Detected Not Detected 12/20/2023 8:15 AM [facility] COCAINE,QUAL Not Detected Not Detected 12/20/19 8:15 AM [facility] METHAMPHETAMINE , QUALITATIVE Not Detected Not Detected 12/20/2023 8:15 AM [facility] OPIATES,QUAL Not Detected Not Detected 12/20/19 8:15 AM [facility] AMPHETAMINE, QUALITATIVE Not Detected Not Detected 12/20/2023 8:15 AM [facility] BENZODIAZEPINES ,QUAL Non-negative , consider further testing if indicated(A) Not Detected 12/20/2023 8:15 AM [facility] TRICYCLICS,QUAL Not Detected Not Detected 12/19 8:15 AM [facility] METHADONE, QUALITATIVE Not Detected Not Detected 12/20/2023 8:15 AM [facility] BARBITURATES,QU AL Not Detected Not Detected 12/20/2023 8:15 AM [facility] OXYCODONE, QUALITATIVE Not Detected Not Detected 12/20/2023 8:15 AM T [facility] BUPRENORPHINE, QUALITATIVE Not Detected Not Detected 12/20/2023 8:15 AM T [facility] Urine URINE SPECIMEN / Unknown Non-Blood / Unknown 12/20/2023 7:58 AM CDT 12/20/2023 8:[address] [facility] - 12/20/2023 8:15 AM CDT Please Note: ?? This is a screening [...] MD URINE Performing Organization Address [facility] de Phone Number [facility] [address] [address] * URINE (12/20/2023 7:58 AM CDT) ,URIN E Negative Negative 12/20/2023 8:07 AM CDT [facility] Urine URINE SPECIMEN / Unknown Non-Blood / Unknown 12/20/2023 7:58 AM CDT 12/20/2023 8:02 AM CDT Fausto Meza MD URINE Performing Organization Address [facility] de Phone Number [id number] [address] * TSH (12/20/2023 6:05 AM CDT) Pathologist [facility] TSH 1.31 0.27 - 4.20 uIU/mL 12/20/2023 6:42 AM CDT [facility] Blood BLOOD SPECIMEN / Unknown Venipuncture / Unknown 12/20/2023 6:05 AM CDT 12/20/2023 6:11 AM CDT [facility] 12/20/2023 6:42 AM CDT In Adults, TSH values between 5.00 and 10.00 uIU/ml do not necessarily indicate the presence of Hypothyroidism. Correlation with clinical findings such as presence of goiter and/or Thyroperoxidase (TPO) Antibody may be helpful. For more information please refer to MARCOS 2004; 291: 228-238. Fausto Meza MD CHEMISTRY Performing Organization Address City/[facility]/ZIP Co de Phone Number [address] [address] * FOLIC ACID (12/20/2023 6:05 AM CDT) [facility] FOLIC ACID 15.3 4.6 - 34.8 ng/mL 12/21/2023 6:50 AM CDT [facility] Blood BLOOD SPECIMEN / Unknown Venipuncture / Unknown 12/20/2023 6:05 AM CDT 12/20/2023 6:11 AM CDT [facility] LABORATORY - 12/21/2023 6:50 AM CDT Biotin supplements may cause clinically significant interference for this test assay. ??If interference is suspected, it is strongly recommended that biotin is discontinued for at least one week prior to retesting. Fausto Meza MD CHEMISTRY [facility] [address] [place] [address], * VITAMIN B12 (12/20/2023 6:05 AM CDT) VITAMIN B12 485 232 - 1,245 pg/mL 12/21/2023 6:12 AM CDT [facility] Blood BLOOD SPECIMEN / Unknown Venipuncture / Unknown 12/20/2023 6:05 AM CDT 12/20/2023 6:11 AM CDT [facility] LABORATORY - 12/21/2023 6:12 AM CDT Biotin supplements may cause clinically significant interference for this test assay. ??If interference is suspected, it is strongly recommended that biotin is discontinued for at least one week prior to retesting. Fausto Meza MD CHEMISTRY [facility] [address] [place] [address], * HEPATIC FUNCTION PANEL (12/20/2023 6:05 AM CDT) ALBUMIN 4.0 4.0 - 4.9 g/dL 12/20/2023 6:42 AM [facility] PROTEIN,TOTAL 6.9 6.0 - 8.0 g/dL 12/20/2023 6:42 AM [facility] BILIRUBIN,TOTAL 0.5 0.0 - 1.2 mg/dL 12/20/2023 6:42 AM [facility] BILIRUBIN,DIRECT <0.2 0.0 - 0.3 mg/dL 12/20/2023 6:42 AM [facility] BILIRUBIN,INDIRE CT 12/20/2023 6:42 AM [facility] Comment:Unable to calculate, Direct Bili <0.2 ALK PHOSPHATASE 75 35 - 104 IU/L 12/20/2023 6:42 AM [facility] ALT (SGPT) 18 10 - 35 IU/L 12/20/2023 6:42 AM [facility] AST (SGOT) 25 10 - 35 IU/L 12/20/2023 6:42 AM [facility] Blood BLOOD SPECIMEN / Unknown Venipuncture / Unknown 12/20/2023 6:05 AM CDT 12/20/2023 6:11 AM CDT Fausto Meza MD CHEMISTRY [facility] [address] [address] * LIPID PANEL (12/20/2023 6:05 AM CDT) CHOLESTEROL,TOTAL 168 100 - 199 mg/dL 12/21/2023 6:12 AM CDT [facility] TRAL LABORATORY Comment: Cholesterol, Total Reference Ranges Desirable <200 mg/dL Borderline 200-239 mg/dL High >=240 mg/dL TRIGLYCERIDES 74 <150 mg/dL 12/21/2023 6:12 AM CDT [facility] TRAL LABORATORY HDL CHOLESTEROL 46 >40 mg/dL 6:12 AM CDT [facility] TRAL LABORATORY NON-HDL CHOLESTEROL 122 <145 mg/dl 12/21/2023 6:12 AM CDT [facility] TRAL LABORATORY CHOL/HDL RATIO 3.65 <4.50 12/21/2023 6:12 AM CDT [facility] TRAL LABORATORY LDL CHOLESTEROL 107 <=130 mg/dL 12/21/2023 6:12 AM CDT [facility] TRAL LABORATORY VLDL CHOLESTEROL 15 <=30 mg/dL 12/21/2023 6:12 AM CDT [facility] TRAL LABORATORY PROVIDER ORDERED STATUS RANDOM 12/21/2023 6:12 AM T [facility] Blood BLOOD SPECIMEN / Unknown Venipuncture / Unknown 12/20/2023 6:05 AM CDT 12/20/2023 6:11 AM CDT Fausto Meza MD CHEMISTRY [facility] [address] [place] [address], [facility] [address] [address] * BASIC METABOLIC PANEL (12/20/2023 6:05 AM CDT) SODIUM 140 136 - 145 mmol/L 12/20/2023 6:42 AM [facility] POTASSIUM 4.2 3.5 - 5.1 mmol/L 12/20/2023 6:42 AM [facility] CHLORIDE 105 98 - 107 mmol/L 12/20/2023 6:42 AM [facility] CO2,TOTAL 27 22 - 29 mmol/L 12/20/2023 6:42 AM [facility] ANION GAP 8 5 - 18 12/20/2023 6:42 AM [facility] GLUCOSE 91 70 - 99 mg/dL 12/20/2023 6:42 AM [facility] CALCIUM 8.7 8.6 - 10.0 mg/dL 12/20/2023 6:42 AM [facility] BUN 8 6 - 20 mg/dL 12/20/2023 6:42 AM [facility] CREATININE 0.65 0.50 - 0.90 mg/dL 12/20/2023 6:42 AM [facility] BUN/CREAT RATIO 12 10 - 20 6:42 AM [facility] eGFR >90 >90 mL/min/1.7 3m2 12/20/2023 6:42 AM [facility] Comment:As of 2021, eG FR is calculated by the CKD-EPI creatinine equation without race adjustment. ??eGFR can be influenced by muscle mass, exercise, and diet. ??The reported eGFR is an estimation only and is only applicable if the renal function is stable. Blood BLOOD SPECIMEN / Unknown Venipuncture / Unknown 12/20/2023 6:05 AM CDT 12/20/2023 6:11 AM T Fausto Meza MD CHEMISTRY [facility] [address] [address] * CBC WITH AUTO DIFFERENTIAL (12/20/2023 6:04 AM CDT) WHITE BLOOD COUNT 10.0 4.5 - 11.0 thou/cu mm 12/20/2023 6:20 AM [facility] RED BLOOD COUNT 4.59 4.00 - 5.20 mil/cu mm 12/20/2023 6:20 AM [facility] HEMOGLOBIN 13.4 12.0 - 16.0 g/dL 12/20/2023 6:20 AM [facility] HEMATOCRIT 41.6 33.0 - 51.0 % 12/20/2023 6:20 AM [facility] MCV 91 80 - 100 fL 12/20/2023 6:20 AM [facility] MCH 29.2 26.0 - 34.0 pg 12/20/2023 6:20 AM [facility] MCHC 32.2 32.0 - 36.0 g/dL 12/20/2023 6:20 AM [facility] RDW 13.2 11.5 - 15.5 % 12/20/2023 6:20 AM [facility] PLATELET COUNT 307 140 - 440 thou/cu mm 12/20/2023 6:20 AM [facility] MPV 9.1 6.5 - 11.0 fL 12/20/2023 6:20 AM [facility] % NEUT 69.6 % 12/20/2023 6:20 AM [facility] % LYMPH 21.3 % 12/20/2023 6:20 AM [facility] % MONO 7.7 % 12/20/2023 6:20 AM [facility] % EOS 1.1 % 12/20/2023 6:20 AM [facility] % BASO 0.3 % 12/20/2023 6:20 AM [facility] ABSOLUTE NEUTROPHILS 7.0 1.7 - 7.0 thou/cu mm 12/20/2023 6:20 AM [facility] ABSOLUTE LYMPHOCYTES 2.1 0.9 - 2.9 thou/cu mm 12/20/2023 6:20 AM [facility] ABSOLUTE MONOCYTES 0.8 <0.9 thou/cu mm 12/20/2023 6:20 AM [facility] ABSOLUTE EOSINOPHILS 0.1 <0.5 thou/cu mm 12/20/2023 6:20 AM CDT [facility] ABSOLUTE BASOPHILS 0.0 <0.3 thou/cu mm 12/20/2023 6:20 AM CDT [facility] Blood BLOOD SPECIMEN / Unknown Venipuncture / Unknown 12/20/2023 6:04 AM CDT 12/20/2023 6:11 AM CDT Fausto Meza MD HEMATOLOGY Performing Organization Address [facility] Co de Phone Number [facility] [address] [place] [phone] * HEMOGLOBIN A1C SCREENING (12/20/2023 6:04 AM CDT) Pathologist [facility] HEMOGLOBIN A1C SCREENING 5.0 <=6.4 % 12/22/2023 10:36 AM CDT [facility] Blood BLOOD SPECIMEN / Unknown Venipuncture / Unknown 12/20/2023 6:04 AM CDT 12/20/2023 6:11 AM CDT Narrative [facility] - 12/22/2023 10:36 AM CDT ? (<5.7%) ?Normal ? (5.7% to 6.4%) ? Indicates prediabetes ? (>=6.5%) ? Confirms diabetes Falsely low levels may be seen with: Recent Transfusion, Recent Significant Blood Loss, Hemolytic Diseases, or Falsely elevated levels may be seen with: Untreated Anemias, Splenectomy Fausto Meza MD CHEMISTRY Performing Organization Address [facility] Co de Phone Number [facility] [address] [place] [address], * EKG 12 LEAD (12/19/2023 9:40 PM CDT) Interpretation Normal sinus rhythm Normal ECG No previous ECGs available BEYOND NOW Ventricular Rate 74 BPM BEYOND NOW Atrial Rate 74 BPM BEYOND NOW P-R Interval 158 ms BEYOND NOW QRS Duration 78 ms BEYOND NOW QT 412 ms BEYOND NOW QTc 457 ms BEYOND NOW P [place] 36 degrees BEYOND NOW R [place] -15 degrees BEYOND NOW T [place] 13 degrees BEYOND NOW 12/19/2023 9:40 PM CDT 12/20/2023 12:49 PM CDT Fausto Meza MD EKG ORD BEYOND NOW [place], [place] * MR HEAD BRAIN WWO (12/05/2023 [...] For Patients: ??As a result of the Century Cures Act, medical imaging exams and procedure [...] For Patients: As a result of the Century Cures Act, medical imagingexams and procedure reports [...] 12/06/2023 10:45:14 AM (Electronically Signed) Analy 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 Authorizing Provider: ??Jen Matamoros MD ??Collected: ? 11/29/2023 1451 ? Ordering Location: ? [facility] ?? Received: ?11/29/2023 1512 ? Clinic ? Pathologist: ? Citlaly Iqbal MD ? Specimen: ?Jaw, left jaw lesion-stitch at 3 oclock or posterior ? 12/02/2023 9:06 AM T [facility] Final Diagnosis A) SKIN, LEFT JAW, EXCISION: 1. Intradermal nevus 2. Negative for malignancy 12/02/2023 9:06 AM [facility] ENTRAL LABORATORY Comment A) Incomplete sampling of melanocytic proliferations may impair accurate diagnosis. Clinical correlation with the overall size of the lesion, and presence of remaining or recurring pigment, is required for optimal treatment. 12/02/2023 9:06 AM T [facility] [employer] [facility] Clinical Information Left jaw skin lesion; 5 mm slightly raised pigmented lesion with spine surgeon colored center. 12/02/2023 9:06 AM T [facility] LABORAT[facility]-C ENTRAL LABORATORY Gross Description A) Received [...] 9:00 EVM 11/30/2023 12/02/2023 9:06 AM CDT [facility] LABORATORY-C ENTRAL LABORATORY Microscopic Description The final diagnosis is based on microscopic examination of appropriate sections of all specimens. 12/02/2023 9:06 AM CDT [facility] LABORATORY-C ENTRAL LABORATORY Additional Information Interpreted at [facility], Central Laboratory - [address] [place] [address] 12/02/2023 9:06 AM CDT [facility] LABORATORY-C ENTRAL LABORATORY Other (Jaw) Non-Blood / Unknown 11/29/2023 2:51 PM CDT 11/29/2023 3:12 PM CDT Jen Matamoros MD PATHOLOGY/CYTOLO GY Performing Organization Address City/State/[facility] Co de Phone Number [facility] LAB[facility]ATORY [address] [place] [address], * CLOTHING WORKER THIN PREP PAP SCREEN IMAGED [[id number]] (06/10/2021 11:30 AM COMMODITY MANAGER) Case Report Gynecologic Cytology Report ? Case: [id number] ? Authorizing Provider: ??Xiomy Bland MD ? Collected: ? 06/10/2021 1130 ? Ordering Location: ? [facility] ?? Received: ?06/10/2021 1216 ? Clinic ? First Screen: ?Edgard Pinzon ? Specimen: ?CLOTHING WORKER ThinPrep Vial Screening, Cervical ? 06/26/2021 1:06 PM [facility] INTERPRETATION/ RESULT NEGATIVE FOR INTRAEPITHELIAL LESION OR MALIGNANCY (NIL) (none) 06/26/2021 1:06 PM [facility]AL LAB[facility]ATORY IMEN ADEQUACY Satisfactory for evaluation Endocervical component present 06/26/2021 1:06 PM [facility] EN[facility]AL LABORATORY HPV REQUEST HPV and PAP 06/26/2021 1:06 PM COMMODITY MANAGER [facility] LABORATORY-C ENTRAL LABORATORY Date of LMP 05/15/2021 06/26/2021 1:06 PM COMMODITY MANAGER [facility] LABORAT[facility]-C ENTRAL LABORATORY Last Pap Date 06/03/17 06/26/2021 1:06 PM [facility] EN[facility]AL LABORATORY Last Pap Result NIL 1:06 PM COMMODITY MANAGER [facility] LABORATORY-C ENTRAL LABORATORY Abnormal Pap or [place] Bx in last 5 years No 06/26/2021 1:[address] [facility] Menstrual Status Regular Periods 06/26/2021 1:[address] [facility] [place] Bx Done Today No 06/26/2021 1:[address] [facility] Additional Information None given 06/26/2021 1:[address] [facility] Comment: Cytology is screened at [facility] Laboratory - [address], [place] [address] and [facility] - [address], [place] [address] [address] [facility] Laboratory - [address] [place] [address] Interpreted at [facility] Laboratory - [address], [place] [address] Automated Review Successful 06/26/2021 1:06 PM COMMODITY MANAGER [facility] Comment:Specimen processed s uccessfully by automated direct marketing specialist device, ThinPrep Imaging System, [employer] ANCILLARY TESTING CLOTHING WORKER HPV Ordered, Please see separate report 06/26/2021 1:06 PM COMMODITY MANAGER [facility] Note The pap test is a screening technique, not a diagnostic procedure. It is used primarily to screen for squamous cancers and precursor lesions. Published studies have shown that it is subject to both false negative and false positive results. The pap test should not be used as the sole means to diagnose or exclude pre-malignant and malignant lesions. 06/26/2021 1:[address] [facility] Other (Cervical) Non-Blood / Unknown 06/10/2021 11:30 AM COMMODITY MANAGER 06/10/2021 12:16 PM COMMODITY MANAGER Xiomy Bland MD PATHOLOGY/CYTOLOGY [facility] [address] [place] [address], [place] * ANTI HCV (08/17/2019 9:39 AM COMMODITY MANAGER) HEPATITIS C ANTIBODY Non-React usha Non-React usha 08/18/2019 12:13 AM COMMODITY MANAGER [facility] Comment:Antibodies to HCV no t detected; does not exclude the possibility of exposure to HCV. Blood BLOOD SPECIMEN / Unknown Venipuncture / Unknown 08/17/2019 9:39 AM COMMODITY MANAGER 08/17/2019 9:39 AM COMMODITY MANAGER Merlene MCDONNELL SEND OUTS [facility] [address] [place] [address], * ANTI HIV 1/2 (08/17/2019 9:39 AM COMMODITY MANAGER) HIV-1/HIV-2 ANTIBODY Non-Reacti ve Non-Reacti ve 08/18/2019 12:25 AM COMMODITY MANAGER [facility] Comment:HIV-1 p24 and HIV-1/ HIV-2 Ab not detected. Blood BLOOD SPECIMEN / Unknown Venipuncture / Unknown 08/17/2019 9:39 AM COMMODITY MANAGER 08/17/2019 9:39 AM COMMODITY MANAGER Merlene MCDONNELL SEND OUTS [facility] [facility] [address] [place] [address], from Last 3 Months or Most Recently [...] Discussion: Per Advance Care Plan Care Teams Electrician Elevator Maintenance Relationship Specialty Start Date End Date Nela Stanley MD [address] [place], [place] [address] PCP - General 01/14/06
--- NOTE | 2024-01-04 17:49 | ED.UPPEXIN ---
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 She was holding a paper in her right hand and it fell and landed on her left hand. She has significant swelling and bruising over the dorsal aspect of her left hand. She does not report any other injury. Related Data Home Medications ?Medication ?Instructions ?Recorded ?Confirmed epinephrine 0.3 mg/0.3 mL 0.3 mg IM PRN 01/14/22 12/19/23 injection, auto-injector amitriptyline 10 mg tablet 10 mg PO QPM 10/26/22 12/19/23 escitalopram oxalate 10 mg tablet 10 mg PO DAILY 01/04/24 01/04/24 Previous Rx's ?Medication ?Instructions ?Recorded hydrocodone 5 mg-acetaminophen 325 1 tab PO Q4-6H PRN pain #6 tabs 01/04/24 mg tablet Allergies Allergy/AdvReac Type Severity Reaction Status Date / Time adhesive tape Allergy Intermediate Hives Verified 12/19/23 01:19 latex Allergy Intermediate Hives Verified 12/19/23 01:19 silicone Allergy Mild Rash Verified 12/19/23 01:19 venom-honey bee Allergy Mild Hives Verified 12/19/23 01:19 Review of Systems Status of ROS: Reports: 10 or more systems reviewed and unremarkable except as noted in History and below Narrative: Constitutional: No fevers, no weight gain or loss. Eyes: No discharge. No vision changes. HENT: No congestion, no sore throat, no ear pain. Cardiovascular: No chest pain, no palpitations. Respiratory: No shortness of breath, no wheezes, no cough. Gastrointestinal: No abdominal pain, no vomiting, no diarrhea. Genitourinary: No dysuria, no hematuria. Musculoskeletal: Left hand injury as described above. Skin: No rashes, no pruritis. Neurological: No dizziness, weakness, sensory change, speech change. Endo/Heme/Allergies: No bruising or bleeding. No polydipsia. Pysch: no suicidality, no anxiety, no insomnia. All other systems reviewed and are negative. 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) ?Z91.030 - Bee allergy status (ICD-10) Anxiety and depression ?F41.9 - Anxiety disorder, unspecified (ICD-10) ?F32.A - Depression, unspecified (ICD-10) Menorrhagia ?N92.0 - Excessive and frequent menstruation with regular cycle (ICD-10) Seizure ?R56.9 - Unspecified convulsions (ICD-10) Impacted gallstone of gallbladder ?K80.20 - Calculus of gallbladder without cholecystitis without obstruction (ICD-10) Choledocholithiasis ?K80.50 - Calculus of bile duct without cholangitis or cholecystitis without obstruction (ICD-10) Familial cavernous cerebral angioma ?D18.02 - Hemangioma of intracranial structures (ICD-10) PCO (polycystic ovaries) ?E28.2 - Polycystic ovarian syndrome (ICD-10) Surgical History S/P right knee arthroscopy (09/10/03) ?Z98.890 - Other specified postprocedural states (ICD-10) H/O wisdom tooth extraction (~2007) ?K08.409 - Partial loss of teeth, unspecified cause, unspecified class (ICD-10) H/O lateral meniscus repair of right knee (~2004) ?Z98.890 - Other specified postprocedural states (ICD-10) S/P laparoscopic hysterectomy (03/30/22) ?Z90.710 - Acquired absence of both cervix and uterus (ICD-10) History of salpingectomy (05/06/20) ?Z90.79 - Acquired absence of other genital organ(s) (ICD-10) Hx laparoscopic cholecystectomy (11/26/19) ?Z90.49 - Acquired absence of other specified parts of digestive tract (ICD-10) Previous section ?Z98.891 - History of uterine scar from previous surgery (ICD-10) Family History Maternal Grandmother Lung cancer Aunt Diabetes Brother Cancer Social History Narrative: Cis-gender, heterosexual, woman Relationship status: . 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 Tobacco: Lifetime nonsmoker E-cigarettes: No Alcohol: Yes, 1-2 servings/week Illicit/recreational drugs: No Safety concerns at home or work: No Dietary restriction(s): No Exercise: Nothing in addition to her job Smoking Status: Never smoker Do you use any of these nicotine containing products: None Second hand tobacco smoke exposure: No How often do you have a drink containing alcohol: monthly or less How many standard drinks containing alcohol do you have on a typical day: 1 or 2 How often do you have six or more drinks on one occasion: Never AUDIT-C Alcohol total score: 1 Non-prescribed substance use: denies use Caffeine: Yes service: No Exam Narrative: Exam Narrative: Constitutional: Well-developed, well-nourished, no acute distress. HEENT: Normocephalic, atraumatic. Neck: Normal range of motion. Nontender. Supple. Heart: Regular. No murmurs. Normal rate. Intact distal pulses. Lungs: Clear to auscultation. No chest discomfort. No wheezes, rhonchi, or rales. Abdomen: Normal bowel sounds. Nontender. No rebound tenderness. Genitalia: Deferred. Back: No midline tenderness. Normal range of motion. Extremities: Swelling and bruising over the dorsal aspect of the left hand. There are a couple superficial abrasions on the fingers and wrist. Range of motion of fingers and wrist is intact. Skin: Intact. No rash. Warm. No erythema or pallor. Neurologic: No altered sensation. No weakness. Alert and oriented. Psychiatric: No suicidality. No anxiety or depression. No insomnia. Nursing notes and vitals signs are reviewed. Const: Vital Signs, click to edit/add: Vital Signs - 24 hr 01/04/24 17:06 Temperature 98.8 F Pulse Rate [Pulse Oximeter] 82 Respiratory Rate 20 Blood Pressure [Ri ght Upper Arm] 113/79 Pulse Oximetry 99 Course Vital Signs Vital signs: Initial Vital Signs Temperature 98.8 F 01/04/24 17:06 Temperature Source Temporal Artery Scan 01/04/24 17:06 Pulse Rate 82 01/04/24 17:06 Pulse Rhythm Regular 01/04/24 17:06 Respiratory Rate 20 01/04/24 17:06 Blood Pressure 113/79 01/04/24 17:06 Blood Pressure Mean 90 01/04/24 17:06 Blood Pressure Position Sitting 01/04/24 17:06 Pulse Oximetry 99 01/04/24 17:06 Vital Signs Temperature 98.8 F 01/04/24 17:06 Pulse Rate 82 01/04/24 17:06 Respiratory Rate 20 01/04/24 17:06 Blood Pressure 113/79 01/04/24 17:06 Pulse Oximetry 99 01/04/24 17:06 Temperature 98.8 F 01/04/24 17:06 Pulse Rate 82 01/04/24 17:06 Respiratory Rate 20 01/04/24 17:06 Blood Pressure 113/79 01/04/24 17:06 Pulse Oximetry 99 01/04/24 17:06 Medications Administered Medications: Discontinued Medications Generic Name Dose Route Start Last Admin Trade Name Freq PRN Reason Stop Dose Admin Hydrocodone Bitart/Acetaminophen 1 tab 01/04/24 17:41 01/04/24 17:53 Hydrocodone-Acetamin 5-325 Mg 1 Tab PO 01/04/24 17:42 1 tab ONCE ONE Administration MDM - Extremity Injury (Upper) MDM Narrative Medical decision making narrative: This patient comes in with a contusion to her left hand as described above. X-ray imaging by my review shows no sign of fracture or dislocation. Patient does not have any skin injury that requires repair. She did receive an oral dose of [place] and was placed in a wrist splint for comfort. I did provide a prescription for some more tablets of [place]. Imaging Data XR L Hand: Radiologist's impression: No acute displaced fracture or malalignment. Discharge Plan Discharge Clinical Impression: Contusion of hand, left Patient Disposition: Home w/ Parent or Adult Condition: Stable Additional Instructions: Wear splint as needed and increase activity as tolerated. Use medication also as needed and directed. Follow up with MD return if worsening. Prescriptions: New hydrocodone-acetaminophen 5-325 mg tablet 1 tab PO Q4-6H PRN (Reason: pain) Qty: 6 0RF No Action amitriptyline 10 mg tablet 10 mg PO QPM epinephrine 0.3 mg/0.3 mL auto-injector 0.3 mg IM PRN escitalopram oxalate 10 mg tablet 10 mg PO DAILY Follow Up/Referrals: Nela Stanley MD [Primary Care Provider] - Stand Alone Forms: [employer] Info Instructions
[2024-01-04] MEDS: HYDROCODONE-ACETAMIN 5-325 MG 1 TAB PO (17:53)
[2024-01-04 18:17] VITALS: BP 112/79; PULSE 67; RESP 16
== END 2024-01-04 18:20 | disposition home or self-care (01) ==
PROVIDERS: Emergency Provider Emergency Medicine Emergency Medical Services; PCP Family Medicine
DX: S60.222A Contusion of left hand, initial encounter (principal); W22.8XXA Striking against or struck by other objects, initial encounter
CPT/HCPCS: 29125; 73130; 99283; 99284; A9270

== ENCOUNTER 2024-05-21 01:20 | Emergency (ER) | payer BC, SELFPAY ==
--- NOTE | 2024-05-21 01:22 | ED.GENADULT ---
HPI - General Adult General Time Seen by Provider: : Date Seen: 05/21/24 Chief complaint: Abdominal Pain Stated complaint: Back/abdominal pain Time Seen by Provider: 05/21/24 01:21 Source: patient, RN notes reviewed and old records reviewed Mode of arrival: ambulatory Limitations: no limitations History of Present Illness HPI narrative: 34-year-old female who presents today with stomach and back pain. This started approximately 30 minutes prior to coming emergency department. Complains of upper abdominal pain with nausea, no vomiting. Also some mid back pain. Denies diarrhea , constipation, chest pain, breathing difficulty, fever, urinary symptoms. Took Zofran at home but no other medications for this. Prior cholecystectomy. The prior hysterectomy. Related Data Home Medications ?Medication ?Instructions ?Recorded ?Confirmed epinephrine 0.3 mg/0.3 mL 0.3 mg IM PRN 01/14/22 05/21/24 injection, auto-injector clonidine HCl 0.1 mg tablet 0.1 mg PO DAILY 05/21/24 05/21/24 escitalopram oxalate 20 mg tablet 20 mg PO DAILY 05/21/24 05/21/24 hydroxyzine HCl 25 mg tablet 25 mg PO BID 05/21/24 05/21/24 lorazepam 1 mg tablet 1 mg PO DAILY PRN 05/21/24 05/21/24 naltrexone 50 mg tablet 50 mg PO DAILY 05/21/24 05/21/24 ondansetron 4 mg disintegrating 4 mg PO Q8H PRN 05/21/24 05/21/24 tablet Allergies Allergy/AdvReac Type Severity Reaction Status Date / Time adhesive tape Allergy Intermediate Hives Verified 05/21/24 01:29 latex Allergy Intermediate Hives Verified 05/21/24 01:29 silicone Allergy Mild Rash Verified 05/21/24 01:29 venom-honey bee Allergy Mild Hives Verified 05/21/24 01:29 [facility] Medical History Obsessive-compulsive disorder (09/02/06) ?F42.9 - Obsessive-compulsive disorder, unspecified (ICD-10) 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) ?Z91.030 - Bee allergy status (ICD-10) Anxiety and depression ?F41.9 - Anxiety disorder, unspecified (ICD-10) ?F32.A - Depression, unspecified (ICD-10) Menorrhagia ?N92.0 - Excessive and frequent menstruation with regular cycle (ICD-10) Seizure ?R56.9 - Unspecified convulsions (ICD-10) Impacted gallstone of gallbladder ?K80.20 - Calculus of gallbladder without cholecystitis without obstruction (ICD-10) Choledocholithiasis ?K80.50 - Calculus of bile duct without cholangitis or cholecystitis without obstruction (ICD-10) Familial cavernous cerebral angioma ?D18.02 - Hemangioma of intracranial structures (ICD-10) PCO (polycystic ovaries) ?E28.2 - Polycystic ovarian syndrome (ICD-10) Surgical History S/P right knee arthroscopy (09/10/03) ?Z98.890 - Other specified postprocedural states (ICD-10) H/O wisdom tooth extraction (~2007) ?K08.409 - Partial loss of teeth, unspecified cause, unspecified class (ICD-10) H/O lateral meniscus repair of right knee (~2004) ?Z98.890 - Other specified postprocedural states (ICD-10) S/P laparoscopic hysterectomy (03/30/22) ?Z90.710 - Acquired absence of both cervix and uterus (ICD-10) History of salpingectomy (05/06/20) ?Z90.79 - Acquired absence of other genital organ(s) (ICD-10) Hx laparoscopic cholecystectomy (11/26/19) ?Z90.49 - Acquired absence of other specified parts of digestive tract (ICD-10) Previous section ?Z98.891 - History of uterine scar from previous surgery (ICD-10) Family History Maternal Grandmother Lung cancer Aunt Diabetes Brother Cancer Social History Narrative: Cis-gender, heterosexual, woman Relationship status: . 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 Tobacco: Lifetime nonsmoker E-cigarettes: No Alcohol: Yes, 1-2 servings/week Illicit/recreational drugs: No Safety concerns at home or work: No Dietary restriction(s): No Exercise: Nothing in addition to her job Smoking Status: Never smoker Do you use any of these nicotine containing products: None Second hand tobacco smoke exposure: No How often do you have a drink containing alcohol: monthly or less How many standard drinks containing alcohol do you have on a typical day: 1 or 2 How often do you have six or more drinks on one occasion: Never AUDIT-C Alcohol total score: 1 Non-prescribed substance use: denies use Caffeine: Yes service: No Exam Narrative: Exam Narrative: General: Well-developed and well-nourished, no acute distress Head: Atraumatic and normocephalic Eyes: Pupils are equal reactive, extraocular motions intact, conjunctiva clear ENT: External nose and ears are normal, posterior pharynx without erythema or exudate Neck: No midline cervical tenderness, full spontaneous range of motion the neck, trachea midline, no adenopathy Heart: Regular rate and rhythm no murmurs or thrills Lungs: Clear to auscultation bilaterally without wheezes or crackles Abdomen: Soft, mild diffuse upper abdominal tenderness,, nondistended with active bowel sounds Musculoskeletal: No tenderness, deformity, or edema Neurologic: Awake, alert, and oriented x3, no gross focal neurologic deficits, cranial nerves intact as tested Psych: Mood and affect are appropriate Skin: No rashes Const: Vital Signs, click to edit/add: Vital Signs - 24 hr 05/21/24 01:24 Temperature 98.2 F Pulse Rate [Pulse Oximeter] 88 Respiratory Rate 16 Blood Pressure [Ri ght Upper Arm] 104/72 Pulse Oximetry 95 Oxygen Delivery Me thod Room Air Course Course ED Course: Reviewed most recent emergency department visit in inpatient hospitalization when patient was admitted with constipation, obsessive-compulsive disorder and adjustment disorder with self-injury behavior. Patient presents today with about 30 minutes of upper abdominal pain, nausea. Took Zofran at home. On exam here, vital is stable mild diffuse upper abdominal tenderness. Prior cholecystectomy, symptoms most likely represent gastritis or early gastroenteritis given recent onset of symptoms. Labs are ordered along with CT scan of the abdomen pelvis. Patient has no shortness of breath, chest pain, tachycardia, or hypoxia to suggest pulmonary embolism. Pain is reproducible with palpation of the upper abdomen, acute coronary syndrome clinically less likely. Reevaluation(s) Time of Reevaluation #1: 02:27 Reevaluation #1: CT scan of the abdomen pelvis independently interpreted by me negative for acute findings. Labs independently interpreted by me with normal white blood cell count, normal hemoglobin, urinalysis without evidence for infection or hematuria. Time of Reevaluation #2: 02:48 Reevaluation #2: Labs ordered and independently interpreted by me with normal hepatic panel and normal lipase. Reviewed the radiology interpretation CT scan agrees with my initial interpretation. Patient is stable for discharge Vital Signs Vital signs: Initial Vital Signs Temperature 98.2 F 05/21/24 01:24 Temperature Source Temporal Artery Scan 05/21/24 01:24 Pulse Rate 88 05/21/24 01:24 Respiratory Rate 16 05/21/24 01:24 Blood Pressure 104/72 05/21/24 01:24 Blood Pressure Mean 82 05/21/24 01:24 Blood Pressure Position Sitting 05/21/24 01:24 Pulse Oximetry 95 05/21/24 01:24 Oxygen Delivery Method Room Air 05/21/24 01:24 Vital Signs Temperature 98.2 F 05/21/24 01:24 Pulse Rate 88 05/21/24 01:24 Respiratory Rate 16 05/21/24 01:24 Blood Pressure 104/72 05/21/24 01:24 Pulse Oximetry 95 05/21/24 01:24 Oxygen Delivery Method Room Air 05/21/24 01:24 Temperature 98.2 F 05/21/24 01:24 Pulse Rate 88 05/21/24 01:24 Respiratory Rate 16 05/21/24 01:24 Blood Pressure 104/72 05/21/24 01:24 Pulse Oximetry 95 05/21/24 01:24 Oxygen Delivery Method Room Air 05/21/24 01:24 Medications Administered Medications: Generic Name Dose Route Start Last Admin Trade Name Freq PRN Reason Stop Dose Admin Ketorolac Tromethamine 15 mg 05/21/24 01:49 05/21/24 02:09 Ketorolac 15 Mg/Ml Inj IVP 05/21/24 01:50 15 mg ONCE ONE Administration Medical Decision Making Lab Data Labs: Lab Results 05/21/24 05/21/24 Range/Units 01:50 02:08 WBC 10.58 (4.50-11.00) K/uL RBC 4.90 (4.00-5.20) m/uL Hgb 14.3 (12.0-16.0) gm/dL Hct 44.0 (33.0-51.0) % MCV 90 (80-100) fL MCH 29 (26-34) pg MCHC 33 (32-36) gm/dL RDW Coeff of Malcolm 12.7 (11.5-15.5) % Plt Count 291 (140-440) K/uL Neut % (Auto) 69.3 (42.0-72.0) % Lymph % (Auto) 21.8 (20-44) % Mower % (Auto) 6.3 (0.0-11.0) % Eos % (Auto) 1.8 (0.0-7.0) % Baso % (Auto) 0.5 (0.0-3.0) % Neut # (Auto) 7.33 H (1.7-7.0) K/uL Lymph # (Auto) 2.31 (0.90-2.90) K/uL Mower # (Auto) 0.70 (0.00-0.90) K/UL Eos # (Auto) 0.19 (0.00-0.50) K/uL Baso # (Auto) 0.05 (0.00-0.30) K/uL Abs Immat Gran (auto) 0.03 (0.00-0.30) K/uL Imm/Tot Granulo (auto) 0.3 % Sodium 139 (135-149) mmol/L Potassium 4.1 (3.6-5.1) mmol/L Chloride 105 (96-114) mmol/L Carbon Dioxide 27 (20-32) mmol/L Anion Gap 7 (7-15) mEq/L BUN 13 (5-24) mg/dL Creatinine 0.6 (0.5-1.5) mg/dL Estimated Creat Clear 116.64 Estimated GFR 119 ml/min Glucose 98 (60-115) mg/dL Calcium 8.9 (8.4-10.6) mg/dL Total Bilirubin 0.2 (0.1-1.5) mg/dL Direct Bilirubin 0.2 (0.0-0.5) mg/dL AST 27 (12-35) U/L ALT 29 (4-35) U/L Alkaline Phosphatase 63 (40-150) U/L Total Protein 7.3 (6.0-8.3) g/dL Albumin 4.2 (3.3-5.0) g/dL Lipase 55 (23-300) U/L Urine Color Yellow (Yellow) Urine Appearance Clear (Clear) Urine pH 5.5 (5.0-8.5) Ur Specific [place] >= 1.030 (1.000-1.030) Urine Protein Negative (Negative) Urine Glucose (UA) Negative (Negative) Urine Ketones Negative (Negative) Urine Blood Negative (Negative) Urine Nitrite Negative (Negative) Urine Bilirubin Negative (Negative) Urine Urobilinogen 0.2 (0.2-1.0) Ur Leukocyte Esterase Negative (Negative) Urine RBC 0-2 (0-2) Urine WBC 0-2 (0-5) Ur Squamous Epith Cells Few (None-Few) Urine Bacteria Few A (None) Discharge Plan Discharge Clinical Impression: Acute upper abdominal pain, Nausea Patient Disposition: Home, Self-Care Instructions: Acute Nausea and Vomiting (DC) Additional Instructions: Take Tylenol and ibuprofen as needed for pain Take Zofran as needed for nausea Avoid caffeine, carbonated beverages, moved alcohol. Liquid diet for 24 hours. Activity Level: No Restrictions Discharge Diet: Regular Prescriptions: No Action epinephrine 0.3 mg/0.3 mL auto-injector 0.3 mg IM PRN clonidine HCl 0.1 mg tablet 0.1 mg PO DAILY naltrexone 50 mg tablet 50 mg PO DAILY hydroxyzine HCl 25 mg tablet 25 mg PO BID lorazepam 1 mg tablet 1 mg PO DAILY PRN ondansetron 4 mg tablet,disintegrating 4 mg PO Q8H PRN escitalopram oxalate 20 mg tablet 20 mg PO DAILY Follow Up/Referrals: Nela Stanley MD [Primary Care Provider] - Stand Alone Forms: [employer] Info Instructions
[2024-05-21 01:24] VITALS: BP 104/72; PULSE 88; RESP 16; TEMP 36.8; O2SAT 95; BMI 33.6
--- NOTE | 2024-05-21 01:49 | CRLHL7_ITS ---
For Patients: As a result of the Century Cures Act, medical imaging exams and procedure reports are released immediately into your electronic medical record. You may view this report before your referring provider. If you have questions, please contact your health care provider. INDICATION: Upper abdominal pain, nausea. TECHNIQUE: CT abdomen and pelvis acquired with 99 cc Isovue 370 IV contrast. COMPARISON: CT abdomen and pelvis 04/09/2023. FINDINGS: Lower chest: Unremarkable. Liver: Unremarkable. Normal in size and attenuation. No suspicious masses. Gallbladder and bile ducts: Status post cholecystectomy. Spleen: Unremarkable. Normal in size. No masses. Adrenal glands: Unremarkable. No nodules. Pancreas: Unremarkable. No mass or inflammation. Kidneys: Unremarkable. No suspicious masses, stones, or hydronephrosis. GI tract: Unremarkable. Normal in caliber. No evidence of obstruction. Normal appendix. Lymph nodes: No lymphadenopathy. Vasculature: Unremarkable. Omentum/Peritoneum/Abdominal Wall: Unremarkable. No free air or significant free fluid. Pelvis: Status post hysterectomy. Bones: Unremarkable for age. IMPRESSION: No acute abdominal or pelvic abnormality. Please note that all CT scans at this facility use dose modulation, iterative reconstruction, and/or weight-based dosing when appropriate to reduce radiation dose to as low as reasonably achievable. Dictated by Pancho Echevarria MD @ 05/21/2024 2:34:21 AM (Electronically Signed)
--- OUTSIDE RECORDS SUMMARY | 2024-05-21 01:52 | XMS_ITS | Clinical Summary ---
Author Organization [facility] [employer] [facility] Address [place], [place] [address] Care Team Providers Care Family Resource Management Professor Name Role Phone Nela Stanley MD Primary Care Provide r Allergies Active Allergy Reactions Criticality Noted Date Comments Adhesive Tape-Silicones Rash 11/08/2014 Bee Pollen Hives High 09/02/2006 Latex Rash,Hives High 02/02/2011 Silicone Rash Low 05/11/2022 Venom-Honey Bee Hives Low 12/19/2023 Medications Medication Sig Dispensed Refills Start Date End Date Status EPINEPHrine (EpiPen) 0.3 mg/0.3 mL injectionIndicatio ns:Bee allergy status Inject 0.3 mg intramuscular one time if needed for Allergic Reaction. Please do not fill today. Patient will call as needed 1 Each 06/10/20 21 Active ondansetron (ZOFRAN ODT) 4 mg disintegrating tabletIndications: Nausea Place 1 Tablet (4 mg) on the tongue every 8 hours if needed for Nausea/Vomiting. 20 Tablet 2 07/15/19 24 Active acetaminophen (TYLENOL) 325 mg tablet Take 650 mg by mouth every 6 hours if needed. Max acetaminophen dose: 4000mg in 24 hrs. Active ibuprofen (ADVIL; MOTRIN) 200 mg tablet Take 800 mg by mouth once daily if needed. Active docusate (COLACE) 100 mg capsuleIndications :Constipation, unspecified constipation type Take 1 Capsule (100 mg) by mouth two times daily. 30 Capsule 1 05/09/20 24 Active LORazepam 1 mg tabletIndications: Anxiety Take 1 Tablet (1 mg) by mouth at bedtime. 30 Tablet 05/09/20 24 Active hydrOXYzine HCL (ATARAX) 25 mg tabletIndications: Obsessive-compulsi ve disorder, unspecified type,Adjustment disorder with depressed mood Take 1/2-1 tablet (12.5-25 mg) twice daily as needed for itching or for anxiety. 30 Tablet 1 05/10/20 24 Active melatonin 3 mg tabletIndications: Adjustment disorder with depressed mood TAKE 1 TABLET (3 MG) BY MOUTH AT BEDTIME 30 Tablet 05/17/20 24 Active cloNIDine HCL (CATAPRES) 0.1 mg tabletIndications: Anxiety Take 1 Tablet (0.1 mg) by mouth at bedtime. 30 Tablet 1 05/15/20 24 Active escitalopram oxalate (LEXAPRO) 20 mg tabletIndications: Anxiety,Obsessive- compulsive disorder, unspecified type Take 1 Tablet (20 mg) by mouth at bedtime. 30 Tablet 2 05/15/20 24 Active naltrexone (REVIA) 50 mg tabletIndications: Nonsuicidal self-injury (HC) Take 1 Tablet (50 mg) by mouth once daily. 30 Tablet 2 05/15/20 24 Active melatonin 3 mg tabletIndications: Adjustment disorder with depressed mood Take 1 Tablet (3 mg) by mouth at bedtime. 30 Tablet 1 02/29/20 24 Discontinued(Re order (E-cancel not sent)) escitalopram oxalate (LEXAPRO) 20 mg tabletIndications: Obsessive-compulsi ve disorder, unspecified type,Adjustment disorder with depressed mood,Anxiety Take 1 Tablet (20 mg) by mouth once daily. 30 Tablet 3 03/22/20 24 024 Discontinued cloNIDine HCL (CATAPRES) 0.1 mg tabletIndications: Anxiety Take 1 Tablet (0.1 mg) by mouth once daily. 30 Tablet 3 03/22/20 24 024 Discontinued(*A vailability/For mulary change/Cost of medication) melatonin 3 mg tabletIndications: Adjustment disorder with depressed mood Take 1 Tablet (3 mg) by mouth at bedtime. 30 Tablet 04/25/20 24 024 Discontinued ARIPiprazole (Abilify) 2 mg tabletIndications: Severe episode of recurrent major depressive disorder, without psychotic features (HC) Take 1 Tablet (2 mg) by mouth once daily. 30 Tablet 04/25/20 24 024 Discontinued(Ph armacist change per medication history (E-cancel not sent)) cloNIDine HCL (CATAPRES) 0.1 mg tabletIndications: Anxiety Take 1 Tablet (0.1 mg) by mouth once daily. 90 Tablet 05/06/20 24 024 Discontinued(*M edication adjustment) escitalopram oxalate (LEXAPRO) 20 mg tabletIndications: Obsessive-compulsi ve disorder, unspecified type,Adjustment disorder with depressed mood,Anxiety Take 1 Tablet (20 mg) by mouth at bedtime. 30 Tablet 2 05/09/20 24 024 Discontinued(Re order (E-cancel not sent)) nystatin powder (MYCOSTATIN) powderIndications: Rash Apply topically to affected area(s) three times daily. 15 g 05/09/20 24 024 Discontinued(*M ed complete/Regime n complete/Level of care change) naltrexone (REVIA) 50 mg tabletIndications: Nonsuicidal self-injury (HC) Take 1 Tablet (50 mg) by mouth once daily. 30 Tablet 2 05/10/20 24 024 Discontinued(Re order (E-cancel not sent)) cloNIDine HCL (CATAPRES) 0.1 mg tabletIndications: Anxiety Take 1 Tablet (0.1 mg) by mouth at bedtime. 30 Tablet 1 05/09/20 24 024 Discontinued(Re order (E-cancel not sent)) Active Problems Problem Noted Date Diagnosed Date Nonsuicidal self-injury 05/08/2024 Intentional drug overdose, subsequent encounter 02/29/2024 Anxiety 01/25/2024 Major depressive disorder, recurrent episode, mo derate 01/09/2024 Contusion of hand, left 01/05/2024 Anxiety and depression 01/05/2024 Intentional drug overdose, subsequent encounter 01/05/2024 Adjustment disorder with depressed mood 12/20/19 Pap smear for cervical cancer screening 05/20/20 Overview (07/11/2021): 05/2021 NIL/HPV Negative. 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 Allergies Allergen Reactions Bee Pollen Hives Adhesive Tape-Silicones Rash OB History Para Term [...] Negative Negative Past Medical History: . Date Encounter for supervision of other normal , first trimester 10/20/2017 Obsessive-compulsive disorders Seizure (HC) One seizure, age 13 Past Surgical History: . Laterality Date CO MENISCAL TRNSPL KNEE WITH SCOPE No data on file. Problems (from 08/17/19 to present) No problems associated with this episode. MILES Coelho.....11/19/2019 9:47 AM Gallbladder pain 11/02/2019 04/30/2020 Common bile duct dilatation 11/02/2019 04/30/2020 Choledocholithiasis 11/02/2019 11/03/19 20 19 weeks gestation of 11/02/2019 04/30/2020 Encounter for supervision of normal in first trimester 09/07/2019 11/02/2019 05/12/2018 11/02/2019 Overview (05/29/2018): Estimated Date of Delivery: 06/21/18 Patient's last menstrual period was 09/14/2017. Last Tdap- 04/14/2018 Last Flu vaccine- 03/31/2018 Glucose (GTT) result- Component Latest Ref Rng & Units 03/09/2018 GLUCOSE,GESTATIONAL 65 - 139 mg/dL 82 Allergies Allergen Reactions Bee Pollen Hives Adhesive Tape-Silicones Rash Obstetric History T1 L1 [...] Streptococcus isolated. Past Medical History: Diagnosis Date Encounter for supervision of other normal , first trimester 10/20/2017 Obsessive-compulsive disorders Seizure (HC) One seizure, age 13 Past Surgical History: Procedure Laterality Date CO MENISCAL TRNSPL KNEE WITH SCOPE No data on file. 2nd Problems (from 10/20/17 to present) No problems associated with this episode. Ginna Gibbons RNC.....05/12/2018 9:18 AM Encounter for supervision of normal in second trimester 03/31/2018 05/12/2018 Overview (04/14/2018): Estimated Date of Delivery: 06/21/18 Patient's last menstrual period was 09/14/2017. Last Tdap- 04/14/2018 Last Flu vaccine- 03/31/2018 Glucose (GTT) result- see below Allergies Allergen Reactions Bee Pollen Hives Adhesive Tape-Silicones Rash Obstetric History T1 L1 [...] mg/dL 82 Past Medical History: Diagnosis Date Encounter for supervision of other normal , first trimester 10/20/2017 Obsessive-compulsive disorders Seizure (HC) One seizure, age 13 Past Surgical History: Procedure Laterality Date CO MENISCAL TRNSPL KNEE WITH SCOPE No data on file. 2nd Problems (from 10/20/17 to present) No problems associated with this episode. MILES Coelho.....03/31/2018 12:12 PM Encounter for supervision of other normal , first trimester 10/20/2017 03/31/2018 Overview (12/05/2017): Estimated Date of Delivery: 06/21/18 Patient's last menstrual period was 09/14/2017. Last Tdap- 04/13/2011 Last Flu vaccine- 04/22/2017 Allergies Allergen Reactions Bee Pollen Hives Adhesive Tape-Silicones Rash Obstetric History T1 L1 [...] % 5.1 Past Medical History: Diagnosis Date Encounter for supervision of other normal , first trimester 10/20/2017 Obsessive-compulsive disorders Seizure (HC) One seizure, age 13 Past Surgical History: Procedure Laterality Date CO MENISCAL TRNSPL KNEE WITH SCOPE No data on file. 2nd Problems (from 10/20/17 to present) No problems associated with this episode. MILES Coelho.....12/05/2017 7:39 AM Encounter for IUD removal 11/16/2013 High-risk 09/24/2010 11/09/19 15 Ingrowing nail 09/19/2008 02/02/2011 Other convulsions 10/28/2017 Articular cartilage disorder , site unspecified 06/14/2008 Encounters Date Type Department Care Team Description 05/15/2024 3:15 PM [facility]ER Office Visit [facility] [address] [place] [address] Migdalia Alvarado NP Medication Management 05/15/2024 Travel 05/15/2024 Telephone [facility] [address] [place] [address] Nela Stanley MD Form 05/15/2024 Refill [facility] [address] [place] [address] Migdalia Alvarado NP Refill Request (Aripiprazole, Melatonin) 05/10/2024 Patient Outreach [facility] [address] [place] [address] Dede Mendez RN Primary RN Care Management; Hospital F/U (L[facility]) 05/04/2024 1:44 PM [facility]AMA FARMER - 05/09/2024 1:50 PM [facility] FARMER Hospital Encounter [place] [id number] [place] [address] Kali Santos MD Rash (Primary Dx); Obsessive-compulsive disorder, unspecified type; Adjustment disorder with depressed mood; Anxiety; Nonsuicidal self-injury (HC); Constipation, unspecified constipation type Discharge Disposition: Home Self Care 05/04/2024 8:49 AM LLAMA FARMER - 05/04/2024 1:15 PM [facility] FARMER Emergency [address] [address] Goran Castaneda MD Self-injurious behavior (Primary Dx); Partial thickness burn of back of left hand, initial encounter; Partial thickness burn of left wrist, initial encounter; Obsessive-compulsive disorder, unspecified type; Major depressive disorder, recurrent episode, moderate (HC); Headache, unspecified headache type Discharge Disposition: Psychiatric Hos or Unit 05/04/2024 7:20 AM [facility] FARMER Office Visit [address] [address] Quita Corley PA Headache (Nauseous - since starting abilify on 04/25/2024); Burn (Two loyd on back of left hand) 05/04/2024 Travel 05/03/[address] [address] Migdalia Alvarado NP Questions (RETURN CALL/SEE eleni MESSAGE) 05/03/[address] [address] Migdalia Alvarado NP Refill Request (Clonidine Hcl) 04/29/[address] [address] Migdalia Alvarado NP Prior Authorization (melatonin 3 mg tablet (EXCLUDED)) 04/25/2024 10:45 AM [facility] FARMER Office Visit [address] [address] Migdalia Alvarado NP Medication Management 04/25/2024 Travel 04/24/[address] [address] Migdalia Alvarado NP Refill Request (melatonin 3 mg tablet/) 04/20/[address] [address] Migdalia Alvarado NP Refill Request (Melatonin) 03/27/2024 9:05 AM CDT Office Visit [address] [address] Quita Corley PA Toenail (Right great toe) 03/26/2024 9:00 AM CDT Office Visit [address] [address] Quita Corley PA Toenail 03/26/2024 Travel 03/22/2024 Telephone [facility] [address] [facility] [address] Nela Stanley MD Refill Request 03/08/2024 9:05 AM CDT Nurse/Clinic Staff Only [facility] [address] [facility] [address] Immunization/Injectio n 03/08/2024 Travel 02/29/2024 9:45 AM CDT Office Visit [facility] [address] [facility] [address] Migdalia Alvarado NP Medication Management (Things are going good) 02/29/2024 Travel 02/23/2024 Refill [facility] [address] [facility] [address] Migdalia Alvarado NP Refill Request (Clonidine Hcl) from Last 3 Months Immunizations Name Administration Dates Next Due AMB Influenza, IIV4 PF (=>6 mos Flulaval,Fluzone Fluarix)(Flu Clinic Only) 04/05/2019 COVID-19 VACCINE SPIKEVAX (M ODERNA 50MCG/0.5ML) 12YO+ PFS 03/08/2024 COVID-19 vaccine (Pfizer-Bio NTech 30mcg/0.3mL) 12YO+ BIVALENT PF, MDV 05/04/2022 COVID-19 vaccine (Pfizer-Bio NTech 30mcg/0.3mL) PF, MDV 06/16/2021,04/22/2021 DTaP 01/11/1994, 0,1988,07/20,1988 HIB PRP-D (ProHIBIT) 03/22/1990 Hep B (Hepatitis B (Adult) Recombinant Adjuvanted) 12/14/2021 Hepatitis B (Peds) 09/25/1999,02/10/1999, 999 Human Papilloma Virus Vaccine 06/28/2007, 007,09/01/2006 04/02/2007 INFLUENZA, IIV3 PF (AGE >= 6 MO) 03/08/2024 Influenza Virus, Unspecified 08/20/2010 Influenza, IIV3 (Age >=3 years) 08/20/2010 Influenza, IIV4 04/07/2023, 2,04/16/2021,02/28,03/31/2018,04/22/2017,04/16/2016 ,07/03/2015,05/24/2014 MMR 09/06/2000,06/22/1989 Oral Polio Vaccine 01/11/1994, [...] Packs/Day Years Used Date Smoking Tobacco: Never Passive Smoke Exposure: Never Smokeless Tobacco: Never Tobacco Cessation:Counseling Given: No Alcohol Use Standard Drinks/Week Comments Yes 0 (1 standard drink = 0.6 oz pur e alcohol) twice a month PHQ-2 Answer Date Recorded PHQ-2 TOTAL SCORE 0 05/15/2024 Social Connections Answer Date Recorded Do you often feel lonely or isolated from those around you? 0 05/04/2024 Alcohol Use Answer Date Recorded How often do you have a drink containing alcohol ? 0 05/04/2024 How many drinks containing a lcohol do you have on a typical day when you are drinking? 0 05/04/2024 How often do you have five or more drinks on one occasion? 0 05/04/2024 Financial Resource Strain Answer Date R ecorded Difficulty of Paying Living Expenses 3 09/23/2023 Difficulty of Paying Living Expenses Not on file 09/23/2023 Food Insecurity Answer Date Recorded Do you worry your food will run out before you are able to buy more? 1 05/04/2024 Transportation Needs Answer Date Record ed Does lack of transportation keep you from medica l appointments? 1 05/04/2024 Does lack of transportation keep you from work, meetings or getting things that you need? 1 05/04/2024 Housing Stability Answer Date Recorded What is your housing situation today? 1 05/04/2024 Sex and Gender Information Value Date Recorded Sex Assigned at Female 05/07/2024 11:24 AM [facility] [facility]ER Gender Identity Female 05/07/2024 11:24 AM [facility] F[employer]ER Sexual Orientation Not on file Obstetrics History [...] Sign Reading Time Taken Comments Blood Pressure 111/77 05/15/2024 2:49 PM [facility] FARMER Pulse 73 05/15/2024 2:49 PM [facility]AMA FARMER Temperature 36.8 C (98.2 F) 05/08/2024 8:46 PM [facility]AMA FARMER Respiratory Rate 16 05/09/2024 2:07 AM [facility]AMA FARMER Oxygen Saturation 99% 05/09/2024 2:07 AM [facility]AMA FARMER Inhaled Oxygen Concentration - - Weight 91.6 kg (202 lb) 05/15/2024 2:49 PM [facility]AMA FARMER Height 152.4 cm (5') 05/04/2024 1:50 PM [facility]AMA FARMER Body Mass Index 39.45 05/04/2024 1:50 PM [facility]AMA FARMER Plan of Treatment Upcoming Encounters Date Type Department Care Team (Late st Contact Info) Description 05/22/2024 9:30 AM [facility] FARMER Office Visit [facility] [address] [place] [address] Salomon Garnett, WRAP KNITTING MACHINE OPERATOR [address] [place] [address] 05/22/2024 11:20 AM [facility]AMA FARMER Office Visit [facility] [address] [place] [address] Nela Stanley MD [address] [place] [address] 05/29/2024 9:30 AM [facility]AMA FARMER Office Visit [facility] [address] [place] [address] Salomon Garnett, WRAP KNITTING MACHINE OPERATOR [address] [place] [address] 05/29/2024 10:15 AM LLAMA FARMER Office Visit [facility] [address] [place] [address] Migdalia Alvarado, MANAGER BEHAVIORAL [address] [place], [place] [id number] Health Maintenance Due Date Last Done Comments BMI (ht and wt on same day) for age 18+ 12/07/2024 12/08/2023, 03/25/2022, 07/07/2021, Additional history exists Depression screening for age 12+ 05/22/2025 05/22/2024, 05/15/2024, 05/15/2024, Additional history exists Pap test for age 21-65 06/10/2026 , 06/10/2021, 06/03/2017, Additional history exists Tetanus booster 01/07/2030 01/08/2020, 03/21, 04/13/2011, Additional history exists HIV for age 15-65 Completed 08/17/2019, , 11/23/2012, Additional history exists Hepatitis C screening for age 18-79 Completed 08/17/2019, 11/23/2012 Tdap Completed 01/08/2020, 03/21, 04/13/2011 COVID-19 vaccine series Completed 03/08/20 24, 05/04/2022, 06/16/2021, Additional history exists Influenza for age 9-49 Completed 4, 04/07/2023, 03/11/2022, Additional history exists Pneumococcal series for age 6-64 Aged Out No longer eligible based on patient's age to complete this topic Procedures Procedure Name Priority Date/Time Associated Diagnosis Comments HEMOGLOBIN A1C Early AM 05/05/2024 5:53 AM [facility] FARMER RIG SUPERINTENDENT THIN PREP PAP SCREEN IMAGED Routine 06/10/2021 11:30 AM [facility]AMA FARMER Screening for cervical cancer ANTI HIV 1/2 Routine 08/17/2019 9:39 AM [facility]AMA FARMER Encounter for supervision of normal first in first trimester ANTI HCV Routine 08/17/2019 9:39 AM [facility]AMA FARMER Encounter for supervision of normal first in first trimester from Last 3 Months or Most Recently Relevant to Health Maintenance Results * Hemoglobin A1C Screening (05/05/2024 5:53 AM LLAMA FARMER) HEMOGLOBIN A1C SCREENING 5.2 <=6.4 % 05/05/2024 4:29 PM LLAMA FARMER [facility] [employer] [facility] Blood BLOOD SPECIMEN / Unknown Venipuncture / Unknown 05/05/2024 5:53 AM LLAMA FARMER 05/05/2024 5:57 AM LLAMA FARMER Narrative [facility] - 05/05/2024 4:29 PM LLAMA FARMER (<5.7%) Normal (5.7% to 6.4%) Indicates prediabetes (>=6.5%) Confirms diabetes Falsely low levels may be seen with: Recent Transfusion, Recent Significant Blood Loss, Hemolytic Diseases, or Falsely elevated levels may be seen with: Untreated Anemias, Splenectomy Kali Santos MD CHEMISTRY [facility] [address] [place] [address], * RIG SUPERINTENDENT THIN PREP PAP SCREEN IMAGED [[id number]] (06/10/2021 11:30 AM LLAMA FARMER) Case Report Gynecologic Cytology Report Case: [id number] Authorizing Provider: Xiomy Bland MD Collected: 06/10/2021 1130 Ordering Location: [facility] Received: 06/10/2021 1216 Clinic First Screen: [place], Xon Izaiah Specimen: RIG SUPERINTENDENT ThinPrep Vial Screening, Cervical 06/26/2021 1:06 PM LLAMA FARMER [facility] INTERPRETATION/ RESULT NEGATIVE FOR INTRAEPITHELIAL LESION OR MALIGNANCY (NIL) (none) 06/26/2021 1:06 PM [facility]AMA FARMER [facility] IMEN ADEQUACY Satisfactory for evaluation Endocervical component present 06/26/2021 1:06 PM LLAMA FARMER [facility] HPV REQUEST HPV and PAP 06/26/2021 1:06 PM [facility]AMA FARMER [facility] Date of LMP 05/15/2021 06/26/2021 1:06 PM LLAMA FARMER [facility] Last Pap Date 06/03/17 06/26/2021 1:06 PM LLAMA FARMER [facility] Last Pap Result NIL 1:06 PM LLAMA FARMER [facility] Abnormal Pap or Chuckey Bx in last 5 years No 06/26/2021 1:06 PM LLAMA FARMER [facility] Menstrual Status Regular Periods 06/26/2021 1:06 PM LLAMA FARMER [facility] Chuckey Bx Done Today No 06/26/2021 1:06 PM LLAMA FARMER [facility] Additional Information None given 06/26/2021 1:06 PM LLAMA FARMER [facility] Comment: Cytology is screened at [facility] - [address], [place] [address] and [facility] - [address], [place] [address] and [facility] - [address] [place] [place] [address] Interpreted at [facility] - [address], [place] [address] Automated Review Successful 06/26/2021 1:06 PM LLAMA FARMER [facility] Comment:Specimen processed s uccessfully by automated billiard table mechanic device, ThinPrep Imaging System, [employer] ANCILLARY TESTING RIG SUPERINTENDENT HPV Ordered, Please see separate report 06/26/2021 1:06 PM LLAMA FARMER [facility] Note The pap test is a screening technique, not a diagnostic procedure. It is used primarily to screen for squamous cancers and precursor lesions. Published studies have shown that it is subject to both false negative and false positive results. The pap test should not be used as the sole means to diagnose or exclude pre-malignant and malignant lesions. 06/26/2021 1:06 PM LLAMA FARMER [facility] Other (Cervical) Non-Blood / Unknown 06/10/2021 11:30 AM LLAMA FARMER 06/10/2021 12:16 PM LLAMA FARMER Xiomy Bland MD PATHOLOGY/CYTOLOGY [facility] [address] [place] [address], * ANTI HCV (08/17/2019 9:39 AM LLAMA FARMER) Pathologist [facility] HEPATITIS C ANTIBODY Non-React usha Non-React usha 08/18/2019 12:13 AM LLAMA FARMER [facility] Comment:Antibodies to HCV no t detected; does not exclude the possibility of exposure to HCV. Blood BLOOD SPECIMEN / Unknown Venipuncture / Unknown 08/17/2019 9:39 AM LLAMA FARMER 08/17/2019 9:39 AM LLAMA FARMER Merlene MCDONNELL SEND OUTS Performing Organization Address [facility] Co de Phone Number [facility] [address] [place] [address], [place] * ANTI HIV 1/2 (08/17/2019 9:39 AM LLAMA FARMER) Pathologist [facility] HIV-1/HIV-2 ANTIBODY Non-Reacti ve Non-Reacti ve 08/18/2019 12:25 AM LLAMA FARMER [facility] Comment:HIV-1 p24 and HIV-1/ HIV-2 Ab not detected. Blood BLOOD SPECIMEN / Unknown Venipuncture / Unknown 08/17/2019 9:39 AM LLAMA FARMER 08/17/2019 9:39 AM LLAMA FARMER Merlene MCDONNELL SEND OUTS [facility] [address] [place] [address], [place] from Last 3 Months or Most Recently Relevant to Health Maintenance Advance Directives * Full Code (Latest Code Status on File) Date Activated Date Inactivated Comments 05/04/2024 1:58 PM 05/09/2024 4:06 PM Question Answer Comments Code Status Discussion: Reviewed Preferences * Full Code Date Activated Date Inactivated Comments 01/09/2024 12:03 PM 01/09/2024 4:37 PM Question Answer Comments Code Status Discussion: Reviewed Preferences * Full Code Date Activated Date Inactivated Comments 12/19/2023 8:24 PM 12/21/2023 6:53 PM Question Answer Comments Code Status Discussion: Other * Full Code Date Activated Date Inactivated Comments 11/23/2019 7:41 AM 11/23/2019 3:42 PM * Full Code Date Activated Date Inactivated Comments 11/23/2019 7:41 AM 11/23/2019 7:41 AM Care Teams Family Resource Management Professor Relationship Specialty Start Date End Date Nela Stanley MD [address] [place] [address] PCP - General 01/14/06
[2024-05-21 02:08] LABS: Appearance Urine Clear (Clear); Bilirubin Urine Negative (Negative); Blood Urine Negative (Negative); Color Urine Yellow (Yellow); Glucose Urine Negative (Negative); Ketones Urine Negative (Negative); Leukocyte Esterase Urine Negative (Negative); Nitrite Urine Negative (Negative); Protein Urine Negative (Negative); Specific Gravity Urine >= 1.030 (1.000-1.030); Urobilinogen Urine 0.2 (0.2-1.0); pH Urine 5.5 (5.0-8.5)
[2024-05-21] MEDS: KETOROLAC 15 MG/ML inj IVP (02:09)
[2024-05-21 02:17] LABS: Basophils Absolute Auto 0.05 K/uL (0.00-0.30); Basophils Percent Auto 0.5 % (0.0-3.0); Eosinophils Absolute Auto 0.19 K/uL (0.00-0.50); Eosinophils Percent Auto 1.8 % (0.0-7.0); Hemoglobin* 14.3 gm/dL (12.0-16.0); Immature Granulocytes Abs Auto 0.03 K/uL (0.00-0.30); Immature Granulocytes Pct Auto 0.3 %; Lymphocytes Absolute Auto 2.31 K/uL (0.90-2.90); Lymphocytes Percent Auto 21.8 % (20-44); Mean Corpuscular HGB Conc 33 gm/dL (32-36); Mean Corpuscular Hemoglobin 29 pg (26-34); Mean Corpuscular Volume 90 fL (80-100); Monocytes Percent Auto 6.3 % (0.0-11.0); Neutrophils Absolute Auto 7.33 K/uL (1.7-7.0); Neutrophils Percent Auto 69.3 % (42.0-72.0); Platelet Count* 291 K/uL (140-440); RDW Coefficient of Variation % 12.7 % (11.5-15.5); White Blood Count* 10.58 K/uL (4.50-11.00)
[2024-05-21 02:18] LABS: Bacteria Urine Few; RBC Urine 0-2 (0-2); Squamous Epithelial Cell Urine Few (None-Few); WBC Urine 0-2 (0-5)
[2024-05-21 02:25] LABS: Slide Review Reflex No
[2024-05-21 02:29] LABS: Albumin* 4.2 g/dL (3.3-5.0)
[2024-05-21 02:30] LABS: Chloride* 105 mmol/L (96-114); Potassium* 4.1 mmol/L (3.6-5.1); Sodium* 139 mmol/L (135-149)
[2024-05-21 02:32] LABS: Alanine Aminotransferase* 29 U/L (4-35); Alkaline Phosphatase* 63 U/L (40-150); Aspartate Amino Transferase* 27 U/L (12-35); Bilirubin Direct* 0.2 mg/dL (0.0-0.5); Bilirubin Total* 0.2 mg/dL (0.1-1.5); Lipase* 55 U/L (23-300); Total Protein* 7.3 g/dL (6.0-8.3)
[2024-05-21 02:33] LABS: Anion Gap 7 mEq/L (7-15); Blood Urea Nitrogen* 13 mg/dL (5-24); Calcium* 8.9 mg/dL (8.4-10.6); Carbon Dioxide* 27 mmol/L (20-32); Creatinine* 0.6 mg/dL (0.5-1.5); Est. Creatinine Clearance* 116.64; Estimated Glomerular Filt Rate 119 ml/min; Glucose* 98 mg/dL (60-115)
== END 2024-05-21 02:55 | disposition home or self-care (01) ==
PROVIDERS: Emergency Provider Family Medicine; PCP Family Medicine
DX: R10.9 Unspecified abdominal pain (principal)
CPT/HCPCS: 36415; 74177; 80048; 80076; 81001; 83690; 85025; 87086; 96374; 99284; 99285; J1885; Q9967

== ENCOUNTER 2024-10-22 22:54 | Emergency (ER) | payer BC, SELFPAY ==
--- NOTE | 2024-10-22 22:59 | ED_ITS ---
HPI - General Adult General Time Seen by Provider: 22:59 Date Seen: 10/22/24 Chief complaint: Extremity Pain/Injury, Lower Stated complaint: R knee pain Time Seen by Provider: 10/22/24 22:59 Source: patient Mode of arrival: ambulatory Limitations: no limitations History of Present Illness HPI narrative: 34-year-old female with knee pain. Patient notes that she has had pain for about a week, no known injury, prior ACL repair in the distant past. Was seen by primary care and has an MRI scheduled along with an appointment with orthopedics but came in tonight due to pain. Patient is taking Tylenol once a day in the evenings, also taking ibuprofen occasionally, last dose with 2 days ago. No swelling of the knee, knee does not lock or give out. Related Data Home Medications ?Medication ?Instructions ?Recorded ?Confirmed epinephrine 0.3 mg/0.3 mL 0.3 mg IM PRN 01/14/22 05/21/24 injection, auto-injector clonidine HCl 0.1 mg tablet 0.1 mg PO DAILY 05/21/24 05/21/24 escitalopram oxalate 20 mg tablet 20 mg PO DAILY 05/21/24 05/21/24 hydroxyzine HCl 25 mg tablet 25 mg PO BID 05/21/24 05/21/24 lorazepam 1 mg tablet 1 mg PO DAILY PRN 05/21/24 05/21/24 naltrexone 50 mg tablet 50 mg PO DAILY 05/21/24 05/21/24 ondansetron 4 mg disintegrating 4 mg PO Q8H PRN 05/21/24 05/21/24 tablet Allergies Allergy/AdvReac Type Severity Reaction Status Date / Time adhesive tape Allergy Intermediate Hives Verified 05/21/24 01:29 latex Allergy Intermediate Hives Verified 05/21/24 01:29 silicone Allergy Mild Rash Verified 05/21/24 01:29 venom-honey bee Allergy Mild Hives Verified 05/21/24 01:29 [facility] Medical History Obsessive-compulsive disorder (09/02/06) ?F42.9 - Obsessive-compulsive disorder, unspecified (ICD-10) 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) ?Z91.030 - Bee allergy status (ICD-10) Anxiety and depression ?F41.9 - Anxiety disorder, unspecified (ICD-10) ?F32.A - Depression, unspecified (ICD-10) Menorrhagia ?N92.0 - Excessive and frequent menstruation with regular cycle (ICD-10) Seizure ?R56.9 - Unspecified convulsions (ICD-10) Impacted gallstone of gallbladder ?K80.20 - Calculus of gallbladder without cholecystitis without obstruction (ICD-10) Choledocholithiasis ?K80.50 - Calculus of bile duct without cholangitis or cholecystitis without obstruction (ICD-10) Familial cavernous cerebral angioma ?D18.02 - Hemangioma of intracranial structures (ICD-10) PCO (polycystic ovaries) ?E28.2 - Polycystic ovarian syndrome (ICD-10) Surgical History S/P right knee arthroscopy (09/10/03) ?Z98.890 - Other specified postprocedural states (ICD-10) H/O wisdom tooth extraction (~2007) ?K08.409 - Partial loss of teeth, unspecified cause, unspecified class (ICD- 10) H/O lateral meniscus repair of right knee (~2004) ?Z98.890 - Other specified postprocedural states (ICD-10) S/P laparoscopic hysterectomy (03/30/22) ?Z90.710 - Acquired absence of both cervix and uterus (ICD-10) History of salpingectomy (05/06/20) ?Z90.79 - Acquired absence of other genital organ(s) (ICD-10) Hx laparoscopic cholecystectomy (11/26/19) ?Z90.49 - Acquired absence of other specified parts of digestive tract (ICD- 10) Previous section ?Z98.891 - History of uterine scar from previous surgery (ICD-10) Family History Maternal Grandmother Lung cancer Aunt Diabetes Brother Cancer Social History Narrative: Cis-gender, heterosexual, woman Relationship status: . 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 Tobacco: Lifetime nonsmoker E-cigarettes: No Alcohol: Yes, 1-2 servings/week Illicit/recreational drugs: No Safety concerns at home or work: No Dietary restriction(s): No Exercise: Nothing in addition to her job Smoking Status: Never smoker Do you use any of these nicotine containing products: None Second hand tobacco smoke exposure: No How often do you have a drink containing alcohol: monthly or less How many standard drinks containing alcohol do you have on a typical day: 1 or 2 How often do you have six or more drinks on one occasion: Never AUDIT-C Alcohol total score: 1 Non-prescribed substance use: denies use Caffeine: Yes service: No Exam Narrative: Exam Narrative: General: well nourished , NAD Head: Atraumatic and normocephalic ENT: External ears and external nose are normal Eyes: Conjunctiva clear, pupils are equal reactive, external ocular motions are intact Neck: Full spontaneous range of motion of the neck Lungs: No respiratory distress Musculoskeletal: No joint effusion. Mild tenderness along the MCL, no joint line tenderness, no pain with flexion, extension, anterior drawer negative, exte nsor mechanism intact. Neurologic: No gross focal neurologic deficits Skin: No rashes Psych: Mood and affect are appropriate Const: Vital Signs, click to edit/add: Vital Signs - 24 hr 10/22/24 23:01 Temperature 97.6 F Pulse Rate [Right Pulse Oximeter] 74 Respiratory Rate 18 Blood Pressure [Ri ght Upper Arm] 109/73 Pulse Oximetry 98 Oxygen Delivery Me thod Room Air Course Course ED Course: Reviewed primary care visit from October 19 which was for knee pain, x-rays were done which were negative for acute findings, MRI was ordered along with Orthopedics referral. Patient presents today with continued right knee pain, no known injury. On exam here vital is stable, no joint effusion or joint laxity, minimal tenderness along the MCL. I cannot elicit patient's pain with maneuvers. Patient is taking Tylenol about once a day and ibuprofen about every other day. We discussed maximizing [id number] medication of her pain, Toradol IM is given in the emergency department and stable for discharge with outpatient follow-up as scheduled. Vital Signs Vital signs: Initial Vital Signs Temperature 97.6 F 10/22/24 23:01 Temperature Source Temporal Artery Scan 10/22/24 23:01 Pulse Rate 74 10/22/24 23:01 Respiratory Rate 18 10/22/24 23:01 Blood Pressure 109/73 10/22/24 23:01 Blood Pressure Mean 85 10/22/24 23:01 Blood Pressure Position Sitting 10/22/24 23:01 Pulse Oximetry 98 10/22/24 23:01 Oxygen Delivery Method Room Air 10/22/24 23:01 Vital Signs Temperature 97.6 F 10/22/24 23:01 Pulse Rate 74 10/22/24 23:01 Respiratory Rate 18 10/22/24 23:01 Blood Pressure 109/73 10/22/24 23:01 Pulse Oximetry 98 10/22/24 23:01 Oxygen Delivery Method Room Air 10/22/24 23:01 Temperature 97.6 F 10/22/24 23:01 Pulse Rate 74 10/22/24 23:01 Respiratory Rate 18 10/22/24 23:01 Blood Pressure 109/73 10/22/24 23:01 Pulse Oximetry 98 10/22/24 23:01 Oxygen Delivery Method Room Air 10/22/24 23:01 Discharge Plan Discharge Clinical Impression: Knee pain, right Condition: Stable Instructions: Knee Pain (ED) Additional Instructions: Take Tylenol 1000 mg every 6 hours alternating every 3 hours with ibuprofen 600 mg Follow-up for MRI and with Orthopedics as scheduled Activity as tolerated, ice before and after activity Activity Level: Activity as Tolerated Discharge Diet: Regular Prescriptions: No Action epinephrine 0.3 mg/0.3 mL auto-injector 0.3 mg IM PRN clonidine HCl 0.1 mg tablet 0.1 mg PO DAILY naltrexone 50 mg tablet 50 mg PO DAILY hydroxyzine HCl 25 mg tablet 25 mg PO BID lorazepam 1 mg tablet 1 mg PO DAILY PRN ondansetron 4 mg tablet,disintegrating 4 mg PO Q8H PRN escitalopram oxalate 20 mg tablet 20 mg PO DAILY Follow Up/Referrals: Nela Stanley MD [Primary Care Provider] -
[2024-10-22 23:01] VITALS: BP 109/73; PULSE 74; RESP 18; TEMP 36.4; O2SAT 98; BMI 40.4
[2024-10-22] MEDS: KETOROLAC 30 MG/ML inj IM (23:21)
== END 2024-10-22 23:23 | disposition home or self-care (01) ==
LOC: ED 23:18
PROVIDERS: Emergency Provider Family Medicine; PCP Family Medicine
DX: M25.561 Pain in right knee (principal)
CPT/HCPCS: 96372; 99283; J1885

== ENCOUNTER 2024-11-26 08:22 | Day surgery (SDC) | payer BC, SELFPAY ==
[2024-11-26] VITALS (12 sets, daily range): BP systolic 93–118; BP diastolic 27–86; PULSE 54–88; RESP 16; TEMP 36.2–37; O2SAT 95–98; BMI 39.2
[2024-11-26] MEDS: LACTATED RINGERS 1000 ML 1,000 ML 100 ML IV (08:49)
[2024-11-26] MEDS: SODIUM CHLORIDE 0.9 % (FLUSH) 10 ML SYRINGE IVF (08:49)
--- NOTE | 2024-11-26 09:17 | W.PM.H&PU ---
History & Physical Update History & Physical Update H&P Reviewed and patient assessed: No changes noted
[2024-11-26] MEDS: CEFAZOLIN 1 GM inj IVP (10:44)
--- NOTE | 2024-11-26 10:47 | P.ANES_ITS ---
Anesthesia Charges Start Date/Time Anesthesia Start Date: 11/26/24 Anesthesia Start Time: 10:29 Stop Date/Time Anesthesia Stop Date: 11/26/24 Anesthesia Stop Time: 11:28 Coding CPT Codes CPT Codes: ANESTH KNEE JOINT SURGERY - 21936 ([id number]) P2 - PATIENT W/MILD SYST DISEASE, QK - DRAFTER MECHANICAL 2-4 CNCRNT ANES PROC, QX - LOG TRUCK DRIVER SVC W/ MD MED DIRECTION
--- NOTE | 2024-11-26 10:47 | W.ANESCHARGE ---
Anesthesia Charges Start Date/Time Anesthesia Start Date: 11/26/24 Anesthesia Start Time: 10:29 Stop Date/Time Anesthesia Stop Date: 11/26/24 Anesthesia Stop Time: 11:28 Coding CPT Codes CPT Codes: ANESTH KNEE JOINT SURGERY - 82775 ([id number]) P2 - PATIENT W/MILD SYST DISEASE, QK - PATIENT PORTAL REPRESENTATIVE 2-4 CNCRNT ANES PROC, QX - ATTORNEY GENERAL SVC W/ MD MED DIRECTION
[2024-11-26] MEDS: ROPIVACAINE 0.5% 30 ML 150 MG INJECTION (11:00)
--- NOTE | 2024-11-26 11:15 | PM.ORPRC ---
Procedure Note Date of procedure: 11/26/24 Procedure: PREOPERATIVE DIAGNOSIS: 1. Right knee lateral meniscus tear POSTOPERATIVE DIAGNOSIS: 1. Right knee medial and lateral meniscus tear PROCEDURE: 1. Right knee arthroscopic partial medial and lateral meniscectomy SURGEON: Yony Paul M.D. VARNISH THINNER: Yeyo Vargas PA-C. Of note, an assistant front end manager was critical for this case to aid in patient positioning, knee manipulation, instrument exchange, and closure. ANESTHESIA: Spinal EBL: 2ml TOURNIQUET: 30 min at 300 torr COMPLICATIONS: None evident INDICATIONS: The patient is a pleasant 34-year-old female who previously underwent right knee BTB ACL reconstruction (autograft) with partial medial meniscectomy in the remote past. Recently, she has had increasing pain about the lateral portion of her knee especially but to some degree medial as well. MRI was obtained had concern for posterior horn/root lateral meniscus tear. There is also some concern for possible medial meniscus retear verses evidence of prior meniscectomy. Given the failure of nonoperative management, surgery was recommended. 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 Grade 1-2 chondromalacia trochlear groove. ACL graft intact, but diminutive. Approximately 1/5 or less of the normal girth. Medial meniscus showed evidence of partial medial meniscectomy involving the posterior horn into the midbody. There was new tearing approaching the posterior root in a semi radial direction. There majority of the meniscus was otherwise stable including the far peripheral portion of the posterior root. Lateral meniscus showed posterior root tearing radial in nature but also somewhat complex extending to the posterior horn. There was also some other anterior horn lateral meniscus tearing. Grade 2 chondromalacia medial and lateral compartment. DESCRIPTION OF PROCEDURE: After a thorough discussion of risks, benefits, and alternatives, the patient was brought to the operating room and placed upon the operating table. Induction of anesthesia was undertaken as previously noted. 2g iv Ancef was administered within 1 hr of incision preoperatively. Appropriate time-out was performed identifying proper patient, site, and procedure. The right lower extremity was prepped and draped in the appropriate sterile fashion using ChloraPrep. The limb was exsanguinated and tourniquet inflated. Anterolateral and anteromedial portals were established with an 11 blade, and a diagnostic arthroscopy was performed. This identified the findings as noted above. Following the diagnostic arthroscopy, a partial medial and lateral menisectomy was performed with the combination of basket forceps, apollo cautery, and a motorized shaver. Following this, the meniscus was re-probed and found to be stable. Approximately 20-25% of the overall meniscus on the lateral side and less than 10% of the medial meniscus required resection. Again both of these were primarily involving the posterior root. Thus an [place] cautery was also utilized to help minimize the risk for parameniscal cyst development. At this stage, the shaver was reinserted into the suprapatellar pouch and all remaining meniscal debris was evacuated. Instruments were removed, excess fluid was drained, and closure performed with 4-0 Monocryl with Steri-Strips. Dressings were applied, the tourniquet deflated, and the patient was awoken from anesthesia and transferred to the PACU in stable condition. PLAN: 1. Weightbear as tolerated operative extremity. Crutch / walker ambulation assistance PRN. 2. Ice, acetominophen and/or ibuprofen, and Oxycodone for pain as needed. 3. Knee range of motion and quad sets/straight leg raise regularly 4. Follow up with PA visit in 1-2 weeks for a wound check and possibly to initiate physical therapy.
--- NOTE | 2024-11-26 11:26 | P.ANES_ITS ---
Anesthesia Charges Start Date/Time Anesthesia Start Date: 11/26/24 Anesthesia Start Time: 10:29 Stop Date/Time Anesthesia Stop Date: 11/26/24 Anesthesia Stop Time: 11:28 Coding CPT Codes CPT Codes: ANESTH KNEE JOINT SURGERY - 76377 ([id number]) P3 - PATIENT W/SEVERE SYS DISEASE, QK - TITLE I DIRECTOR 2-4 CNCRNT ANES PROC, QX - TECHNICAL SUPPORT COORDINATOR SVC W/ MD MED DIRECTION
--- NOTE | 2024-11-26 11:26 | W.ANESCHARGE ---
Anesthesia Charges Start Date/Time Anesthesia Start Date: 11/26/24 Anesthesia Start Time: 10:29 Stop Date/Time Anesthesia Stop Date: 11/26/24 Anesthesia Stop Time: 11:28 Coding CPT Codes CPT Codes: ANESTH KNEE JOINT SURGERY - 42334 ([id number]) P3 - PATIENT W/SEVERE SYS DISEASE, QK - FOOT WORKER 2-4 CNCRNT ANES PROC, QX - CEMENT TESTER ASSISTANT SVC W/ MD MED DIRECTION
[2024-11-26] MEDS: ONDANSETRON 2 MG/ML inj 4 MG IVP (11:52)
[2024-11-26] MEDS: ACETAMINOPHEN 325 MG TABLET PO (12:15)
[2024-11-26] MEDS: hydrOXYzine pamoate 25 MG CAPSULE PO (12:15)
== END 2024-11-26 13:25 | disposition home or self-care (01) ==
LOC: OR 08:24
PROVIDERS: PCP Family Medicine; Visit Provider Orthopaedic Surgery Sports Medicine
PROC: (CPT 27405; principal; 2024-11-26 10:00)
DX: S83.271A Complex tear of lateral meniscus, current injury, right knee, initial encounter (principal); S83.241A Other tear of medial meniscus, current injury, right knee, initial encounter; M94.261 Chondromalacia, right knee
CPT/HCPCS: 29880; 01400; A9270; J0690; J1100; J2250; J2405; J2704; J2795; J3010; J7120

== ENCOUNTER 2025-01-01 08:45 | Outpatient (RCR) | payer BC, SELFPAY | END 2025-01-01 10:01 | disposition home or self-care (01) | PROVIDERS: PCP Family Medicine; Visit Provider Orthopaedic Surgery Sports Medicine | DX: Z48.89 Encounter for other specified surgical aftercare (principal); M25.561 Pain in right knee; Z51.89 Encounter for other specified aftercare | CPT/HCPCS: 97110; 97161 ==